=== PATIENT | female | born 1950 | race Caucasian/White ===

== ENCOUNTER 2017-11-24 10:25 | Emergency (ER) | payer OTHER ==
[2017-11-24 11:32] LABS: Absolute Lymphocytes (CBC) 3.2 K/uL (0.7-4.9); Absolute Monocytes 0.8 K/uL (0.1-1.3); Absolute Neutrophil 9.8 K/uL (1.8-8.0); Basophils % 0.8 % (0-1.3); Eosinophils % 0.3 % (0-4.4); Hematocrit 47.2 % (36.0-45.0); Lymphocytes % 22.9 % (15.3-44.8); MCH 30.2 pg (27.0-35.0); MCV 91.9 fL (80-100); MPV 7.8 fL (7.6-11.3); Monocytes % 5.5 % (3.3-12.3); RBC Red Blood Cell Count 5.13 M/uL (3.86-4.86)
[2017-11-24 11:35] LABS: Protime INR 1.1
[2017-11-24 11:51] LABS: Bilirubin Direct 0.2 mg/dL (0-0.2); Bilirubin Total 0.6 mg/dL (0.3-1.2); Magnesium 1.6 mg/dL (1.8-2.5); Protein, Total 7.1 g/dL (6.0-8.3)
[2017-11-24 11:53] LABS: Potassium 2.7 mEq/L (3.6-5.0)
[2017-11-24 11:54] LABS: CKMB Creatine Kinase MB 5.3 ng/ml (0.3-4.0)
--- NOTE | 2017-11-24 12:35 | ER ---
Nurse's Notes [facility] Name: Oralia Treviño Age: 67 yrs Sex: Female : 1950 Arrival Date: 11/24/2017 Time: 10:29 Bed 3 Private MD: Amina Dominguez Diagnosis: Weakness;Dizziness and giddiness;Other slipping, tripping and stumbling and falls;Superficial injury of head;Abrasion of forearm;Abrasion of hand Presentation: 11/24 10:33 Presenting complaint: Patient states: Patient reports seeing Dr Corbin for her vertigo aj and being ordered to have fasting labs. Patient reports fasting since midnight last night and feeling weak. Seen at [facility] for same complaint. Patient would like medication for nausea and something to make her have more energy. Transition of care: patient was not received from another setting of care. Onset of symptoms was November 24, 2017. Care prior to arrival: None. 10:33 Method Of Arrival: Wheelchair aj 10:33 Acuity: BETTY 3 aj Triage Assessment: 10:37 General: Appears in no apparent distress. comfortable, Behavior is calm, cooperative, aj appropriate for age. Pain: Denies pain. Neuro: Level of Consciousness is awake, alert, obeys commands, Oriented to person, place, time, situation, Appropriate for age. Respiratory: Airway is patent Respiratory effort is even, unlabored, Respiratory pattern is regular, symmetrical. Derm: Skin is intact, is healthy with good turgor, Skin is pink, warm \T\ dry. normal. Musculoskeletal: Circulation, motion, and sensation intact. Range of motion: intact in all extremities. Historical: - Allergies: 10:37 Iodine; aj - Home Meds: 10:37 Ambien Oral [Active]; aspirin 81 mg Oral chew [Active]; carvedilol Oral [Active]; aj Trazodone Oral [Active]; Hydrocodone-Acetaminophen Oral [Active]; 11:37 Albuterol Inhl [Active]; atorvastatin 40 mg oral tab 1 tab once daily [Active]; ae1 carisoprodol 350 mg Oral tab 1 tab 3 times per day [Active]; promethazine 25 mg Oral tab 1 tab every 6 hours [Active]; hydrocodone-acetaminophen 7.5-325 mg Oral tab 1 tab 4 times a day [Active]; venlafaxine 100 mg oral tab 2 tab 2 times per day [Active]; quetiapine 100 mg oral tab 3 tabs every evening. [Active]; amitriptyline 25 mg Oral tab 1 tab at bedtime [Active]; trazodone 100 mg Oral tab 1 tab 1/2 a tab to one tab every evening PRN [Active]; Breo Ellipta 100-25 mcg/dose inhalation dsdv 1 puff once daily [Active]; - PMHx: 10:37 chronic back pain; chronic neck pain; vertigo; aj - PSHx: 10:37 Cholecystectomy; Hysterectomy; aj - Immunization history:: Adult Immunizations up to date. - Social history:: Smoking status: Patient uses tobacco products, smokes one pack cigarettes per day. Screenin:40 Abuse screen: Denies threats or abuse. Nutritional screening: No deficits noted. ae1 Tuberculosis screening: No symptoms or risk factors identified. Fall Risk Fall in past 12 months (25 points). IV access (20 points). Assessment: 10:40 General: Appears uncomfortable, obese, unkempt, Behavior is uncooperative, Patient ae1 states she does not want to stay longer than an hour.. patient refuses to change into gown. . Pain: Complains of pain in left scapular area. Neuro: Level of Consciousness is awake, obeys commands, lethargic, Oriented to person, Speech Mildly slurred . Facial symmetry appears normal. Cardiovascular: skin warm. Respiratory: Airway is patent Respiratory effort is even, unlabored, Respiratory pattern is regular, symmetrical, Breath sounds are clear bilaterally. Breath sounds are diminished bilaterally. in left posterior lower lobe, right posterior middle lobe and right posterior lower lobe. GI: Abdomen is round. : No signs and/or symptoms were reported regarding the genitourinary system. EENT: wears glasses. . Derm: Skin is pale, Bruising that is dark purple, on right arm and left arm. Derm: Wound noted medial aspect of right calf Other: small cut with dried blood. Musculoskeletal: No signs and/or symptoms reported regarding the musculoskeletal system. 10:55 Reassessment: Patient refuses to get in gown, states she does not want to be here ae1 longer than an hour. Provided patient teaching on wait times for tests, provider notified, provider at bedside discussing plan of care. 11:30 Reassessment: Patient refused CT. Patient states she is not going to stay here longer ae1 than a hour and is asking for hydrocodone. Provider notified. Patient questioned nurse why home medications were taken to nurse station, provided patient teaching, left door and curtain to exam room open for nurse to be completely visible while medications entered into computer. Nurse had additional RN present for medications to be entered into computer. 11:30 Reassessment: Patient refuses EKG. Provider notified. ae1 11:37 Reassessment: Patient states she is going to remove monitoring equipment. ae1 11:41 Reassessment: Provider, director and warehouse puller at bedside discussing care and ae1 options. 11:53 Reassessment: Potassium 2.7, provider notified. jl7 12:06 Reassessment: Patient assisted to restroom via wheelchair, nurse obtained urine sample ae1 at this time. Vital Signs: 10:37 BP 162 / 70; Pulse 76; Resp 17; Temp 97.1; Pulse Ox 95% on R/A; Weight 81.65 kg; Height aj 5 ft. 2 in. (157.48 cm); 11:23 BP 185 / 62; Pulse 71; Resp 19; Pulse Ox 91% on R/A; ae1 10:37 Body Mass Index 32.92 (81.65 kg, 157.48 cm) aj 11:23 Nasal cannula applied at 2 liters, Oxygen saturation increased to 96% ae1 ED Course: 10:29 Patient arrived in ED. mr 10:29 Amina Dominguez MD is Private Physician. mr 10:36 Triage completed. aj 10:37 Arm band placed on left wrist. Patient placed in an exam room. aj 10:40 Bed in low position. Call light in reach. Side rails up X 1. campus monitor on. Pulse ae1 ox on. NIBP on. Warm blanket given. Patient refuses to change into gown. 10:46 Edd Marshall MD is Attending Physician. kdr 10:55 Joce Abdi, ELLA is Primary Nurse. ae1 11:[address] vm2 11:31 Note: pt refused CT at this time, Nurse was notified. vm2 11:56 XRAY Chest (1 view) In Process Unspecified. EDMS 12:00 IV discontinued, intact, bleeding controlled, No redness/swelling at site. Pressure ae1 dressing applied. 12:27 Patient states she would like to drive home. Dr Marshall at bedside instructing patient pt she should not drive at this time. I attempted to call patients son with No answer. Patient walked to vehicle and [employer] called. PD present speaking with patient. Officer Neva states patient answered all questions appropriately. PD will follow patient to her home. 12:34 No provider procedures requiring assistance completed. ae1 Administered Medications: 12:32 Not Given (Patient Refused; Patient refused further care.): Tetanus-Diphtheria Toxoid ae1 Adult 0.5 ml IM once Outcome: 12:35 Eloped from waiting room, after seeing physician ae1 12:35 unknown 12:35 Patient left the ED. ae1 Signatures: Dispatcher [employer] EDMS Shira Gomez RN RN aj Rittger, Kevin, MD MD [facility] Jazmín Galan RN RN pt Shameka Khan mr Joce Abdi RN RN ae1 Andres Griggs RN RN jl7 Latasha Ruth 2 Corrections: (The following items were deleted from the chart) 11:21 10:33 Acuity: BETTY 4 aj aj 12:27 10:40 General: Appears uncomfortable, obese, unkempt, Behavior is uncooperative, ae1 Patient states she does not want to stay longer than an hour.. ae1
--- NOTE | 2017-11-24 12:35 | EDPHYS ---
Physician Documentation [facility] Name: Oralia Treviño Age: 67 yrs Sex: Female : 1950 Arrival Date: 11/24/2017 Time: 10:29 Bed 3 Private MD: Amina Dominguez ED Physician Edd Marshall HPI: 11/24 12:03 This 67 yrs old Female presents to ER via Wheelchair with complaints of kdr Weakness. 12:04 The patient has been weak and dizzy with recurrent falls and head injuries with kdr abrasions to her arms and legs. The patient states that she is generally weak and not feeling well. Onset: The symptoms/episode began/occurred at an unknown time. These appear to be ongoing issues. She states that she was recently in [facility] for similar problems and does not want to spend five hours here. Severity of symptoms: At their worst the symptoms were mild moderate just prior to arrival, in the emergency department the symptoms. The patient has experienced similar episodes in the past, multiple times. The patient has been recently seen by a physician: with similar presenting complaints. Historical: - Allergies: 10:37 Iodine; aj - Home Meds: 10:37 Ambien Oral [Active]; aspirin 81 mg Oral chew [Active]; carvedilol Oral [Active]; aj Trazodone Oral [Active]; Hydrocodone-Acetaminophen Oral [Active]; 11:37 Albuterol Inhl [Active]; atorvastatin 40 mg oral tab 1 tab once daily [Active]; ae1 carisoprodol 350 mg Oral tab 1 tab 3 times per day [Active]; promethazine 25 mg Oral tab 1 tab every 6 hours [Active]; hydrocodone-acetaminophen 7.5-325 mg Oral tab 1 tab 4 times a day [Active]; venlafaxine 100 mg oral tab 2 tab 2 times per day [Active]; quetiapine 100 mg oral tab 3 tabs every evening. [Active]; amitriptyline 25 mg Oral tab 1 tab at bedtime [Active]; trazodone 100 mg Oral tab 1 tab 1/2 a tab to one tab every evening PRN [Active]; Breo Ellipta 100-25 mcg/dose inhalation dsdv 1 puff once daily [Active]; - PMHx: 10:37 chronic back pain; chronic neck pain; vertigo; aj - PSHx: 10:37 Cholecystectomy; Hysterectomy; aj - Immunization history:: Adult Immunizations up to date. - Social history:: Smoking status: Patient uses tobacco products, smokes one pack cigarettes per day. ROS: 12:04 Constitutional: The patient is a generally poor historian. Negative for fever, chills, kdr and weight loss, Eyes: Negative for injury, pain, redness, and discharge, ENT: Negative for injury, pain, and discharge, Neck: Negative for injury, pain, and swelling, Cardiovascular: Negative for chest pain, palpitations, and edema, Respiratory: Negative for shortness of breath, cough, wheezing, and pleuritic chest pain, Back: Negative for injury and pain, : Negative for injury, bleeding, discharge, and swelling, Psych: Negative for depression, anxiety, suicide ideation, homicidal ideation, and hallucinations, Allergy/Immunology: Negative for hives, rash, and allergies, Endocrine: Negative for neck swelling, polydipsia, polyuria, polyphagia, and marked weight changes, Hematologic/Lymphatic: Negative for swollen nodes, abnormal bleeding, and unusual bruising. 12:04 Abdomen/GI: Negative for abdominal pain, nausea, vomiting, diarrhea, and constipation. 12:04 MS/extremity: Positive for injury or acute deformity, abrasion, erythema, pain, swelling, tenderness. 12:04 Neuro: Positive for speech changes, weakness, Negative for seizure activity. Exam: 12:04 Constitutional: This is a well developed, well nourished patient who is awake, alert, kdr and in very mild distress. Head/Face: Normocephalic, atraumatic. Eyes: Pupils equal round and reactive to light, extra-ocular motions intact. Lids and lashes normal. Conjunctiva and sclera are non-icteric and not injected. Cornea within normal limits. Periorbital areas with no swelling, redness, or edema. Neck: Trachea midline, no thyromegaly or masses palpated, and no cervical lymphadenopathy. Supple, full range of motion without nuchal rigidity, or vertebral point tenderness. No Meningismus. Chest/axilla: Normal chest wall appearance and motion. Nontender with no deformity. No lesions are appreciated. 12:04 Neuro: Orientation: is normal, appropriate for stated age, Mentation: lucid, able to follow commands, slow to respond, Memory: is normal, Cranial nerves: no acute changes, Cerebellar function: is grossly normal based on the patient's age, Gait: is unsteady, ataxic, shuffling, The patient neuro s/s are minimal but present. Speech appears to be slightly slurred. Vital Signs: 10:37 BP 162 / 70; Pulse 76; Resp 17; Temp 97.1; Pulse Ox 95% on R/A; Weight 81.65 kg; Height aj 5 ft. 2 in. (157.48 cm); 11:23 BP 185 / 62; Pulse 71; Resp 19; Pulse Ox 91% on R/A; ae1 10:37 Body Mass Index 32.92 (81.65 kg, 157.48 cm) aj 11:23 Nasal cannula applied at 2 liters, Oxygen saturation increased to 96% ae1 MDM: 12:04 Data reviewed: vital signs, nurses notes, lab test result(s), radiologic studies. kdr Counseling: I had a detailed discussion with the patient and/or guardian regarding:. ED course: The patient left prior to all results being returned and without allowing any treatment to occur. The patient then walked to her car slow but relatively steady. Police were called and interviewed the patient in the parking lot. I had informed the patient that I was not confident given the extent of her injuries and apparent recurrent nature, that she was safe take herself home in her vehicle. She insisted upon leaving.. 12:34 Patient medically screened. [facility] 11/24 11:12 Order name: Basic Metabolic Panel [facility] 11/24 11:12 Order name: BNP [facility] 11/24 11:12 Order name: CBC with Diff [facility] 11/24 11:12 Order name: Ckmb [facility] 11/24 11:12 Order name: CPK [facility] 11/24 11:12 Order name: LFT's [facility] 11/24 11:12 Order name: Magnesium [facility] 11/24 11:12 Order name: PT-INR [facility] 11/24 11:12 Order name: Ptt, Activated [facility] 11/24 11:12 Order name: Troponin (emerg Dept Use Only) [facility] 11/24 11:12 Order name: XRAY Chest (1 view) [facility] 11/24 11:19 Order name: ETOH Level [facility] 11/24 12:11 Order name: Urine Dipstick--Ancillary (enter results) 11/24 11:12 Order name: Cardiac monitoring; Complete Time: 11:12 [facility] 11/24 11:12 Order name: IV Saline Lock; Complete Time: 11: [facility] 11/24 11:12 Order name: Labs collected and sent; Complete Time: 11: [facility] 11/24 11:12 Order name: O2 Per Protocol; Complete Time: 11:12 [facility] 11/24 11:12 Order name: O2 Sat Monitoring; Complete Time: 11: [facility] 11/24 11:12 Order name: Urine Dipstick-Ancillary (obtain specimen); Complete Time: 12:11 [facility] 11/24 11:19 Order name: Misc. Order: Clean wounds kdr Administered Medications: 12:32 Not Given (Patient Refused; Patient refused further care.): Tetanus-Diphtheria Toxoid ae1 Adult 0.5 ml IM once Disposition: 11/24/17 12:34 Patient left the facility after being seen by provider. Preliminary diagnosis are Weakness, Dizziness and giddiness, Other slipping, tripping and stumbling and falls, Superficial injury of head, Abrasion of forearm, Abrasion of hand. - Patient left due to (see nurse's notes). - Condition is Fair. - Problem is an ongoing problem. - Symptoms are unchanged. Signatures: Dispatcher [employer] Nick Shelley jb1 Shira Gomez RN RN aj Rittger, Kevin, MD MD kdr Joce Abdi RN RN ae1 Corrections: (The following items were deleted from the chart) 12:14 11:20 Head Brain Wo Cont+CT.RAD.BRZ ordered. [facility] 12:35 12:34 11/24/2017 12:34 Patient left the facility after being seen by provider. ae1 Preliminary diagnosis is Weakness; Dizziness and giddiness; Other slipping, tripping and stumbling and falls; Superficial injury of head; Abrasion of forearm; Abrasion of hand. Reason stated they are leaving due to (see nurse's notes). Condition is Fair. Problem is an ongoing problem. Symptoms are unchanged. kdr
[2017-11-24 12:39] VITALS: TEMP 97.1
[2017-11-24 12:40] VITALS: BP 185/62; O2SAT 91
--- NOTE | 2017-11-24 12:46 | RAD REPORT ---
EXAM DESCRIPTION: [place] Single View11/24/2017 11:54 am CLINICAL HISTORY: Chest pain COMPARISON: July 2016 FINDINGS: A few areas of scarring are seen within the lungs bilaterally. The lungs appear clear of a cute infiltrate. The heart is mildly enlarged. IMPRESSION: No acute abnormalities displayed
[2017-11-24 12:54] LABS: Urine Blood TRACE (NEG); Urine Glucose NEGATIVE (NEG); Urine Protein NEGATIVE (NEG); Urine Specific Gravity 1.015 (1.005-1.030); Urine pH 6.5 (5.0-7.0)
== END 2017-11-24 12:35 | disposition left against medical advice (07) ==
LOC: ER 10:25
DX: R42 Dizziness and giddiness (principal); S00.90XA Unspecified superficial injury of unspecified part of head, initial encounter; W19.XXXA Unspecified fall, initial encounter; Y93.9 Activity, unspecified; Y92.9 Unspecified place or not applicable; S50.812A Abrasion of left forearm, initial encounter; S50.811A Abrasion of right forearm, initial encounter; S60.512A Abrasion of left hand, initial encounter; S60.511A Abrasion of right hand, initial encounter; Z91.09 Other allergy status, other than to drugs and biological substances
CPT/HCPCS: 36415; 71045; 80048; 80076; 80320; 81003; 82550; 82553; 83735; 83880; 84484; 85025; 85610; 85730; 99284

== ENCOUNTER 2025-04-24 13:32 | Emergency (ER) | payer OTHER ==
[2025-04-24] MEDS ORDERED: ONDANSETRON 4 MG/2 ML VIAL ONE (13:57)
[2025-04-24] MEDS ORDERED: NA CHLORIDE 0.9% 1,000 ML ONE (13:57)
--- OUTSIDE RECORDS SUMMARY | 2025-04-24 13:59 | XMS REPORT | Continuity of Care Document ---
Author Name Unknown Address [address] [facility] [address] [place] [address] [facility] [place] Address [address] 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 Name Role Phone Amina Dominguez Primary Care Physician [phone] Inna Evans Attending Clinician Unavailable Amina Dominguez L Attending Clinician Unavailable Francisco Yanez Attending Clinician Doctor Unassigned, [place] [place] Attending Clinician U Stewart Cabrales Attending Clinician Unavailable Payers Payer Name Policy Type Policy Number Effective Date Expiration Date Source [facility] MEDICARE C1 [id number] 2020 00:00:00 [facility] [employer] MEDICARE C1 [id number] 2020 00:00:00 [facility] HEALTH (MEDICARE REPLACEMENT HMO) MOLLYAVRIL 2021 00:00:00 Problems Condition Name Condition Details Condition Category Status Onset Date Resolution Date Last Treatment Date Treating Clinician Comments Source Fatigue Fatigue Problem [facility] Gastroesop hageal reflux disease GERD (gastroeso phageal reflux disease) Problem [facility] Insomnia Insomnia Problem [facility] COPD - Chronic obstructiv e pulmonary disease COPD (chronic obstructiv e pulmonary disease) Problem [facility] Essential hypertensi on Benign essential HTN Problem [facility] Diarrhea Diarrhea Problem [facility] Hyperlipid emia Hyperlipid emia Problem Common [facility] [id number] Elevated hemoglobin Problem [facility] [id number] Controlled type 2 diabetes mellitus without complicati on, without long-term current use of insulin Problem Common [facility] [id number] Elevated lymphocyte s Problem [facility] [id number] Dermoid cyst of scalp Problem [facility] Irritable bowel syndrome Mixed irritable bowel syndrome Problem [facility] [id number] Other malaise Problem [facility] [id number] Leg cramps Problem [facility] [id number] Depression with anxiety Problem [facility] [id number] Acute maxillary sinusitis, recurrence not specified Problem [facility] [id number] Seasonal allergic rhinitis due to pollen Problem [facility] [id number] Varicose veins of both lower extremitie s, unspecifie d whether complicate d Problem [facility] Chronic pain Other chronic pain Problem [facility] [id number] Vertigo Problem [facility] [id number] Weakness Problem [facility] Primary insomnia Primary insomnia Problem [facility] Increased blood leukocyte number Other elevated white blood cell (WBC) count Problem [facility] [id number] Hypoxia Problem [facility] Counseling about tobacco use Tobacco abuse counseling Problem [facility] Chronic fatigue syndrome Chronic fatigue Problem [facility] Nicotine dependence Nicotine dependence Problem [facility] [id number] Acute right-side d low back pain without sciatica Problem [facility] [id number] Benign paroxysmal positional vertigo of left ear Problem [facility] [id number] Prediabete s Problem [facility] [id number] Smokes 1 pack of cigarettes per day Problem [facility] [id number] Restless leg syndrome Problem [facility] [id number] Elevated fasting glucose Problem [facility] Allergies, Adverse Reactions, Alerts Allergy Name Allergy Type Status Severity Reaction(s) Onset Date Inactive Date Treating Clinician Comments Source iodine Propensi ty to adverse reaction to drug Active 8 00:00: 00 Ben Westbrook 237 Drug allergy Active Unknown [facility] Social History Social Habit Start Date Stop Date Quantity Comments Source History of Tobacco Use Current Smoker [facility] Sexual orientation U [facility] Sex assigned at 1950 00:00:00 1950 00:00:00 [facility] Smoking Status Start Date Stop Date Source Tobacco smoking consumption unknown [facility] Current Smoker 2023-04-23 00:00:00 [facility] Medications Ordered Medication Name Filled Medication Name Start Date Stop Date Current Medication? Ordering Clinician Indication Dosage Frequency Signature (SIG) Comments Components Source lisinopril 40 mg tablet 2024-07 00:00: 00 Yes 1mg Ben Westbrook hydrochloro thiazide 12.5 mg tablet 2024-07 00:00: 00 Yes 1mg Ben Westbrook Seroquel 50 mg tablet 2024-07 00:00: 00 Yes 1mg Ben Westbrook albuterol sulfate HFA 90 mcg/actuati on aerosol inhaler 2024-07 0- 00:00: 00 Yes 1mcg/ac tuation Ben Westbrook citalopram 10 mg tablet 2024-07 0- 00:00: 00 Yes 1mg Ben Westbrook lisinopril 40 mg tablet 2024-07 0- 00:00: 00 Yes 1mg Ben Westbrook carvedilol 12.5 mg tablet 2024-07 0- 00:00: 00 Yes 1mg Ben Westbrook mirtazapine 15 mg tablet 2024-07 0-02 00:00: 00 Yes 1mg Ben Westbrook gabapentin 300 mg capsule 2024-07 0-02 00:00: 00 Yes mg Ben Westbrook lisinopril 30 mg tablet 0 9-26 00:00: 00 Yes 1mg Ben Westbrook Seroquel 25 mg tablet 2024-0 9-16 00:00: 00 Yes 12mg Ben Westbrook Seroquel 25 mg tablet 0 9-15 00:00: 00 Yes 12mg Ben Westbrook clonidine HCl 0.1 mg tablet 0 8-13 00:00: 00 Yes 1mg Ben Westbrook mirtazapine 15 mg tablet 0 8-11 00:00: 00 Yes 1mg Ben Westbrook hydroxyzine HCl 25 mg tablet 0 7-16 00:00: 00 Yes 12mg Ben Westbrook prednisone 20 mg tablet 0 7-11 00:00: 00 Yes 1mg Ben Westbrook lisinopril 40 mg tablet 0 7-11 00:00: 00 Yes 1mg Ben Westbrook clonidine HCl 0.1 mg tablet 0 7-11 00:00: 00 Yes 1mg Ben Westbrook hydroxyzine HCl 25 mg tablet 0 7-11 00:00: 00 Yes 12mg Ben Westbrook lisinopril 30 mg tablet 0 7-08 00:00: 00 Yes 1mg Ben Westbrook albuterol sulfate 2.5 mg/3 mL (0.083 %) solution for nebulizatio n 0 6- 00:00: 00 Yes 1/3 mL (0.083 %) Ben Wsetbrook cetirizine 10 mg tablet 0 6-26 00:00: 00 Yes 1mg Ben Westbrook gabapentin 300 mg capsule 0 6-26 00:00: 00 Yes mg Ben Westbrook gabapentin 300 mg capsule 0 6-24 00:00: 00 Yes mg Ben Westbrook trazodone 100 mg tablet 0 6-23 00:00: 00 Yes 1mg Ben Westbrook gabapentin 300 mg capsule 0 6-23 00:00: 00 Yes mg Ben Westbrook lisinopril 30 mg tablet 6-23 00:00: 00 Yes 1mg Ben Westbrook gabapentin 300 mg capsule 0 6-19 00:00: 00 Yes mg Ben Westbrook albuterol sulfate HFA 90 mcg/actuati on aerosol inhaler -18 00:00: 00 Yes 1mcg/ac tuation Ben Westbrook Seroquel 25 mg tablet -18 00:00: 00 Yes 12mg Ben Westbrook gabapentin 300 mg capsule -18 00:00: 00 Yes mg Ben Westbrook albuterol sulfate HFA 90 mcg/actuati on aerosol inhaler - 00:00: 00 Yes 1mcg/ac tuation Ben Westbrook lisinopril 20 mg tablet 5- 00:00: 00 Yes 1mg Ben Westbrook lisinopril 20 mg tablet 4-30 00:00: 00 Yes 1mg Ben Westbrook carvedilol 12.5 mg tablet 4-30 00:00: 00 Yes 1mg Ben Westbrook lisinopril 20 mg tablet 4-03 00:00: 00 Yes 1mg Ben Westbrook Seroquel 25 mg tablet 4-03 00:00: 00 Yes 12mg Ben Westbrook lisinopril 10 mg tablet 1-24 00:00: 00 Yes 1mg Ben Westbrook nitrofurant oin monohydrate /macrocryst als 100 mg capsule 1-08 00:00: 00 Yes 1mg Ben Westbrook diclofenac 1 % topical gel 1-06 00:00: 00 Yes 1% Ben Westbrook lisinopril 10 mg tablet 0 1-06 00:00: 00 Yes 1mg Ben Westbrook gabapentin 300 mg capsule 1-06 00:00: 00 Yes mg Ben Westbrook Spiriva Respimat 1.25 mcg/actuati on solution for inhalation 2023-07 0-28 00:00: 00 Yes 2mcg/ac tuation Ben Westbrook Symbicort 160 mcg-4.5 mcg/actuati on HFA aerosol inhaler 2023-07 0-24 00:00: 00 Yes 2mcg/ac tuation Ben Westbrook fluticasone propionate 250 mcg/actuati on blister powder for inhalation 2023-07 0 00:00: 00 Yes 2mcg/ac tuation Ben Westbrook lisinopril 10 mg tablet 2023-07 0 00:00: 00 Yes 1mg Ben Westbrook carvedilol 12.5 mg tablet 2023-07 00:00: 00 Yes 1mg Ben Westbrook Seroquel 25 mg tablet 2023-07 00:00: 00 Yes 12mg Ben Westbrook gabapentin 300 mg capsule 2023-07 0 00:00: 00 Yes 2mg Ben Westbrook Effexor XR 75 mg capsule,ext ended release 2023-07 00:00: 00 Yes 1mg Ben Westbrook cefdinir 300 mg capsule 2023-07 0 00:00: 00 Yes 1mg Ben Westbrook cefdinir 300 mg capsule 04-06 00:00: 00 Yes 1mg Ben Westbrook nitrofurant oin monohydrate /macrocryst als 100 mg capsule 04-03 00:00: 00 Yes 1mg Ben Westbrook gabapentin 300 mg capsule 03-17 00:00: 00 Yes 1mg Ben Westbrook triamcinolo ne acetonide 55 mcg nasal spray aerosol 02-16 00:00: 00 Yes 2mcg Ben Westbrook Symbicort 160 mcg-4.5 mcg/actuati on HFA aerosol inhaler - 00:00: 00 Yes 2mcg/ac tuation Ben Westbrook lisinopril 5 mg tablet - 00:00: 00 Yes 1mg Ben Westbrook Abilify 2 mg tablet 8- 00:00: 00 Yes 1mg Ben Westbrook meloxicam 15 mg tablet - 00:00: 00 Yes 1mg Ben Westbrook carvedilol 12.5 mg tablet 8- 00:00: 00 Yes 1mg Ben Westbrook Seroquel 25 mg tablet 8-06 00:00: 00 Yes 12mg Ben Westbrook gabapentin 300 mg capsule 0 8-06 00:00: 00 Yes 1mg Ben Westbrook Effexor XR 75 mg capsule,ext ended release 0 -06 00:00: 00 Yes 1mg Ben Westbrook fluticasone propionate 44 mcg/actuati on HFA aerosol inhaler 0 8- 00:00: 00 Yes 1mcg/ac tuation Ben Westbrook Abilify 2 mg tablet 0 - 00:00: 00 Yes 1mg Ben Westbrook Seroquel 25 mg tablet 0 - 00:00: 00 Yes 12mg Ben Westbrook Effexor XR 150 mg capsule,ext ended release 0 - 00:00: 00 Yes 2mg Ben Westbrook atomoxetine 40 mg capsule 0 - 00:00: 00 Yes 1mg Ben Westbrook gabapentin 300 mg capsule 0 - 00:00: 00 Yes 1mg Ben Westbrook Seroquel 25 mg tablet 0 - 00:00: 00 Yes 12mg Ben Westbrook Arnuity Ellipta 100 mcg/actuati on powder for inhalation 0 -25 00:00: 00 Yes 1mcg/ac tuation Ben Westbrook fluticasone propionate 44 mcg/actuati on HFA aerosol inhaler 0 6-24 00:00: 00 Yes 1mcg/ac tuation Ben Westbrook Abilify 2 mg tablet 0 5-24 00:00: 00 Yes 1mg Ben Westbrook Seroquel 25 mg tablet 0 5-24 00:00: 00 Yes 12mg Ben Westbrook Effexor XR 150 mg capsule,ext ended release 0 5-24 00:00: 00 Yes 2mg Ben Westbrook atomoxetine 40 mg capsule 2023-0 5-24 00:00: 00 Yes 1mg Ben Westbrook lisinopril 5 mg tablet 2023-0 -29 00:00: 00 Yes 1mg Ben Westbrook carvedilol 12.5 mg tablet 2023-0 -29 00:00: 00 Yes 1mg Ben Westbrook gabapentin 300 mg capsule 0 11-07 00:00: 00 Yes 1mg Ben Westbrook lisinopril 5 mg tablet 0 11-04 00:00: 00 Yes 1mg Ben Westbrook Abilify 2 mg tablet 0 11-04 00:00: 00 Yes 1mg Ben Westbrook Seroquel 25 mg tablet 0 11-04 00:00: 00 Yes 12mg eBn Westbrook Effexor XR 150 mg capsule,ext ended release 0 11-04 00:00: 00 Yes 2mg Ben Westbrook atomoxetine 40 mg capsule 0 11-04 00:00: 00 Yes 1mg Ben Westbrook aripiprazol e 2 mg tablet 11-04 00:00: 00 Yes Ben Westbrook venlafaxine ER 150 mg capsule,ext ended release 24 hr 0 11-04 00:00: 00 Yes Ben Westbrook TAKE 1 TABLET BY MOUTH THREE TIMES DAILY 0 11-03 00:00: 00 Yes Ben Westbrook tizanidine 4 mg tablet 0 11-03 00:00: 00 Yes Ben Westbrook Seroquel 25 mg tablet 0 10-06 00:00: 00 Yes 12mg Ben Westbrook Effexor XR 150 mg capsule,ext ended release 0 - 00:00: 00 Yes 1mg Ben Westbrook atomoxetine 40 mg capsule 2023-0 - 00:00: 00 Yes 1mg Ben Westbrook gabapentin 300 mg capsule 2023-0 3- 00:00: 00 Yes 1mg Ben Westbrook Effexor XR 75 mg capsule,ext ended release 2023-0 - 00:00: 00 Yes 1mg Ben Westbrook TAKE 1 TABLET BY MOUTH THREE TIMES DAILY 2023-0 - 00:00: 00 Yes Ben Westbrook quetiapine 25 mg tablet 2023-0 - 00:00: 00 Yes Ben Westbrook lisinopril 5 mg tablet 0 3-25 00:00: 00 Yes 1mg Ben Westbrook gabapentin 300 mg capsule 2023-0 3- 00:00: 00 Yes Ben Westbrook venlafaxine ER 150 mg capsule,ext ended release 24 hr 3-01 00:00: 00 Yes Ben Westbrook TAKE 1 TAB BY MOUTH DAILY 3- 00:00: 00 11-16 00:00 :00 No 25 Ben Westbrook TAKE 1 TABLET AT BEDTIME. 3-01 00:00: 00 11-16 00:00 :00 No 25 Ben Westbrook tizanidine 4 mg tablet 2-29 00:00: 00 Yes Ben Westbrook gabapentin 300 mg capsule 2-04 00:00: 00 Yes Ben Westbrook quetiapine 25 mg tablet 2-03 00:00: 00 Yes Ben Westbrook TAKE 1 CAPSULE BY MOUTH EVERY DAY WITH FOOD 2- 00:00: 00 Yes Ben Westbrook TAKE 1 CAPSULE BY MOUTH EVERY DAY WITH FOOD 2- 00:00: 00 Yes 150 Ben Westbrook TAKE 1 TAB BY MOUTH DAILY 2- 00:00: 00 11-16 00:00 :00 No 25 Ben Westbrook TAKE 1 CAPSULE 3 TIMES DAILY. 2-02 00:00: 00 11-16 00:00 :00 No 300 Ben Westbrook TAKE 1 TABLET AT BEDTIME. 2- 00:00: 00 11-16 00:00 :00 No 25 Ben Westbrook TAKE 1 TABLET BY MOUTH TWICE DAILY WITH FOOD 1-16 00:00: 00 Yes Ben Westbrook venlafaxine ER 75 mg capsule,ext ended release 24 hr 1-15 00:00: 00 Yes Ben Westbrook TAKE 1 CAPSULE ONCE DAILY WITH FOOD. 1-11 00:00: 00 Yes 75 Ben Westbrook venlafaxine ER 150 mg capsule,ext ended release 24 hr 1-11 00:00: 00 Yes Ben Westbrook TAKE 1 TABLET BY MOUTH AT BEDTIME 1-11 00:00: 00 Yes Ben Westbrook TAKE 1 CAPSULE 3 TIMES DAILY. 1-11 00:00: 00 11-16 00:00 :00 No 300 Ben Westbrook TAKE 1 TABLET AT BEDTIME. 07-22 00:00: 00 11-16 00:00 :00 No 25 Ben Westbrook TAKE 1 TABLET BY MOUTH THREE TIMES DAILY 07-15 00:00: 00 Yes Ben Westbrook TAKE 1 TABLET BY MOUTH EVERY DAY 07-15 00:00: 00 Yes Ben Westbrook quetiapine 25 mg tablet 2022-07 00:00: 00 Yes Ben Westbrook CHEW OR SWALLOW 1 TABLET DAILY. 2022-07 00:00: 00 Yes 5 Ben Westbrook TAKE 1 TABLET BY MOUTH AT BEDTIME 2022-07 00:00: 00 Yes Ben Westbrook TAKE 1 TABLET AT BEDTIME. 2022-07 00:00: 00 11-16 00:00 :00 No 25 Ben Westbrook TAKE 1 CAPSULE 3 TIMES DAILY. 2022-07 00:00: 00 11-16 00:00 :00 No 300 Ben Westbrook TAKE 1 CAPSULE ONCE DAILY WITH FOOD. 2022-07 00:00: 00 11-16 00:00 :00 No 75 Ben Westbrook TAKE 1 TABLET DAILY. 2022-07 00:00: 00 11-16 00:00 :00 No 5 Ben Westbrook TAKE 1 TABLET BY MOUTH EVERY DAY 2022-07 00:00: 00 Yes Ben Westbrook TAKE 1 TABLET BY MOUTH THREE TIMES DAILY 2022-07 00:00: 00 Yes Ben Westbrook fluoxetine 20 mg capsule 2022-07 00:00: 00 Yes Ben Westbrook TAKE 2 CAPSULES AT BEDTIME. 2022-07 00:00: 00 11-16 00:00 :00 No 100 Ben Westbrook USE DIRECTED ON PACKAGE 2022-07 00:00: 00 11-16 00:00 :00 No 5 Ben Westbrook TAKE 1 TABLET DAILY NEEDED. 2022-07 00:00: 00 11-16 00:00 :00 No 10 Ben Westbrook TAKE ONE CAPSULE ONCE A DAY 2022-07 00:00: 00 11-16 00:00 :00 No 20 Ben Westbrook TAKE 1 TABLET DAILY. 2022-07 00:00: 00 11-16 00:00 :00 No 5 Ben Westbrook hydrocodone 7.5 mg-acetamin ophen 325 mg tablet 2022-07 00:00: 00 Yes [id number] Ben Westbrook TAKE 1 TABLET BY MOUTH EVERY DAY NEEDED 2022-07 00:00: 00 11-16 00:00 :00 No Ben Westbrook fluoxetine 10 mg capsule 2022-07 00:00: 00 Yes Ben Westbrook TAKE 1 TABLET DAILY. 2022-07 00:00: 00 11-16 00:00 :00 No 5 Ben Westbrook TAKE 1 CAPSULE ORALLY ONCE A DAY 2022-07 00:00: 00 11-16 00:00 :00 No 10 Ben Westbrook TAKE 1 TABLET BY MOUTH TWICE DAILY WITH FOOD 2022-07 00:00: 00 Yes Ben Westbrook hydrocodone 7.5 mg-acetamin ophen 325 mg tablet 2022-07 00:00: 00 Yes Ben Westbrook methocarbam ol 750 mg tablet 2022-07 00:00: 00 11-16 00:00 :00 No Ben Westbrook TAKE 2 CAPSULES AT BEDTIME. 2022-07 00:00: 00 11-16 00:00 :00 No 100 Ben Westbrook Comirnaty (12y up)(PF) 30 mcg/0.3 mL intramuscul ar syringe 04-10 00:00: 00 Yes Ben Westbrook Boostrix Tdap 2.5 Lf unit-8 mcg-5 Lf/0.5 mL intramuscul ar syringe 04-10 00:00: 00 Yes Ben Westbrook Arexvy (PF) 120 mcg/0.5 mL IM suspension 04-10 00:00: 00 Yes Ben Westbrook Shingrix (PF) 50 mcg/0.5 mL intramuscul ar suspension, kit 04-10 00:00: 00 Yes Ben Westbrook gabapentin 100 mg capsule 04-04 00:00: 00 11-16 00:00 :00 No Ben Westbrook TAKE 1 TO 2 CAPSULES AT BEDTIME 03-31 00:00: 00 11-16 00:00 :00 No 100 Ben Westbrook TAKE 1 TABLET DAILY NEEDED. 03-31 00:00: 00 11-16 00:00 :00 No 10 Ben Westbrook trazodone 150 mg tablet 03-30 00:00: 00 Yes 150 Ben Westbrook TAKE 2 TABLETS BY MOUTH EVERY NIGHT AT BEDTIME 0 03-25 00:00: 00 Yes Ben Westbrook methocarbam ol 750 mg tablet 03-25 00:00: 00 11-16 00:00 :00 No Ben Westbrook TAKE 1 TABLET DAILY NEEDED. 03-22 00:00: 00 11-16 00:00 :00 No 10 Ben Westbrook TAKE 1 TO 2 CAPSULES AT BEDTIME 03-22 00:00: 00 11-16 00:00 :00 No 100 Ben Westbrook loperamide 2 mg capsule 03-01 00:00: 00 Yes Ben Westbrook Loperamide HCl 2 MG Loperamide HCl 2 MG 0 03-01 00:00: 00 No 1{capsu le_as_n eeded} QID Loperamide HCl 2 MG Loperamide HCl 2 MG Loperamide HCl 2 MG 2022-0 03-01 00:00: 00 No 1{capsu le_as_n eeded} QID Loperamide HCl 2 MG Loperamide HCl 2 MG Loperamide HCl 2 MG 2022-0 03-01 00:00: 00 No 1{capsu le_as_n eeded} QID Loperamide HCl 2 MG Loperamide HCl 2 MG Loperamide HCl 2 MG 2022-0 21 00:00: 00 No 1{capsu le_as_n eeded} QID Loperamide HCl 2 MG Loperamide HCl 2 MG Loperamide HCl 2 MG 2022-0 8-21 00:00: 00 No 1{capsu le_as_n eeded} QID Loperamide HCl 2 MG Loperamide HCl 2 MG Loperamide HCl 2 MG 3-0 8-21 00:00: 00 No 1{capsu le_as_n eeded} QID Loperamide HCl 2 MG Loperamide HCl 2 MG Loperamide HCl 2 MG 3-0 8-21 00:00: 00 No 1{capsu le_as_n eeded} QID Loperamide HCl 2 MG Loperamide HCl 2 MG Loperamide HCl 2 MG 3-0 8- 00:00: 00 No 1{capsu le_as_n eeded} QID Loperamide HCl 2 MG Loperamide HCl 2 MG Loperamide HCl 2 MG 3-0 8- 00:00: 00 No 1{capsu le_as_n eeded} QID Loperamide HCl 2 MG Loperamide HCl 2 MG Loperamide HCl 2 MG 2022-0 8 00:00: 00 No 1{capsu le_as_n eeded} QID Loperamide HCl 2 MG Loperamide HCl 2 MG Loperamide HCl 2 MG 2022-0 8 00:00: 00 No 1{capsu le_as_n eeded} QID Loperamide HCl 2 MG Loperamide HCl 2 MG Loperamide HCl 2 MG 2022-0 8 00:00: 00 No 1{capsu le_as_n eeded} QID Loperamide HCl 2 MG Loperamide HCl 2 MG Loperamide HCl 2 MG 2022-0 8 00:00: 00 No 1{capsu le_as_n eeded} QID Loperamide HCl 2 MG Loperamide HCl 2 MG Loperamide HCl 2 MG 2022-0 8 00:00: 00 No 1{capsu le_as_n eeded} QID Loperamide HCl 2 MG TAKE 1 TABLET BY MOUTH EVERY DAY 2022-0 18 00:00: 00 Yes Ben Westbrook TAKE 2 TABLETS BY MOUTH EVERY NIGHT AT BEDTIME 2022-0 02-25 00:00: 00 Yes Ben Westbrook TAKE 1 TABLET BY MOUTH THREE TIMES DAILY 2022-0 8 00:00: 00 Yes Ben Westbrook venlafaxine ER 150 mg capsule,ext ended release 24 hr 2022-0 16 00:00: 00 11-16 00:00 :00 No Ben Westbrook venlafaxine ER 75 mg capsule,ext ended release 24 hr 8-16 00:00: 00 11-16 00:00 :00 No Ben Westbrook TAKE 1 TABLET BY MOUTH FOUR TIMES DAILY NEEDED FOR DIARRHEA 8-15 00:00: 00 Yes Ben Westbrook bupropion HCl XL 150 mg 24 hr tablet, extended release -08 00:00: 00 Yes Ben Westbrook carvedilol 12.5 mg tablet 28 00:00: 00 Yes Ben Westbrook hydrocodone 7.5 mg-acetamin ophen 325 mg tablet - 00:00: 00 Yes Ben Westbrook ropinirole 1 mg tablet - 00:00: 00 Yes 1 Ben Westbrook bupropion HCl XL 150 mg 24 hr tablet, extended release -14 00:00: 00 Yes Ben Westbrook TAKE 1 TABLET BY MOUTH EVERY EVENING 01-18 00:00: 00 Yes Ben Westbrook albuterol sulfate HFA 90 mcg/actuati on aerosol inhaler 01-15 00:00: 00 Yes Ben Westbrook aripiprazol e 5 mg tablet 01-06 00:00: 00 Yes Ben Westbrook TAKE 2 TABLETS BY MOUTH EVERY NIGHT AT BEDTIME 0 12-31 00:00: 00 Yes Ben Westbrook TAKE 1 TO 2 TABLETS BY MOUTH EVERY DAY FOR 14 DAYS NEEDED 12-31 00:00: 00 11-16 00:00 :00 No Ben Westbrook VENLAFAXINE ER 75MG CAPSULES - 00:00: 00 11-16 00:00 :00 No Ben Westbrook ropinirole 1 mg tablet - 00:00: 00 Yes 1 Ben Westbrook TAKE 1 TABLET BY MOUTH THREE TIMES DAILY 0 -25 00:00: 00 Yes Ben Westbrook atorvastati n 40 mg tablet - 00:00: 00 Yes 40 Ben Westbrook venlafaxine ER 225 mg tablet,exte nded release 24 hr 5-09 00:00: 00 Yes 225 Ben Westbrook TAKE 1 TABLET BY MOUTH THREE TIMES DAILY 4-27 00:00: 00 Yes Ben Westbrook ropinirole 1 mg tablet 3-30 00:00: 00 Yes 1 Ben Westbrook aripiprazol e 5 mg tablet 3-23 00:00: 00 Yes 5 Ben Westbrook TAKE 1 TO 2 TABLETS BY MOUTH EVERY EVENING AT 10 PM NEEDED FOR INSOMNIA -22 00:00: 00 Yes eBn Westbrook aripiprazol e 5 mg tablet 3-08 00:00: 00 Yes 5 Ben Westbrook trazodone 150 mg tablet -08 00:00: 00 Yes 150 Ben Westbrook clonidine HCl 0.1 mg tablet 3-07 00:00: 00 Yes 1 Ben Westbrook TAKE 1 TO 2 TABLETS BY MOUTH EVERY EVENING DIRECTED 1.5 HOURS PRIOR TO BEDTIME FOR MOOD AND INSOMNIA - 00:00: 00 Yes Ben Westbrook venlafaxine ER 150 mg capsule,ext ended release 24 hr 3-07 00:00: 00 11-16 00:00 :00 No 150 Ben Westbrook hydrocodone 7.5 mg-acetamin ophen 325 mg tablet 3- 00:00: 00 Yes [id number] Ben Westbrook baclofen 10 mg tablet 3- 00:00: 00 11-16 00:00 :00 No 10 Ben Westbrook TAKE 1 TABLET BY MOUTH EVERY DAY 2-28 00:00: 00 Yes Ben Westbrook DISSOLVE 1 TABLET BY MOUTH EVERY 6-8 HOURS NEEDED 1- 00:00: 00 Yes Ben Westbrook INHALE 2 PUFFS EVERY 12 HOURS FOR 1 WEEK UNTIL SYMPTONS IMPROVE 1- 00:00: 00 Yes Ben Westbrook LEVOFLOXACI N 250MG TABLETS 1-03 00:00: 00 Yes Ben Westbrook ALBUTEROL 0.083%(2.5M G/3ML) 25X3ML 1-03 00:00: 00 Yes Ben Westbrook TAKE 1 TABLET BY MOUTH AT BEDTIME FOR 14 DAYS 1- 00:00: 00 Yes Ben Westbrook TAKE 1 TABLET BY MOUTH EVERY 12 HOURS FOR 7 DAYS - 00:00: 00 Yes Ben Westbrook ALBUTEROL HFA INH(200 PUFFS) 18GM 1-03 00:00: 00 Yes Ben Westbrook TAKE 1 TABLET BY MOUTH DAILY 2021-07- 00:00: 00 Yes Ben Sea Westbrook ropinirole 1 mg tablet 2021-07- 00:00: 00 Yes 1 Ben Westbrook prednisone 10 mg tablet 2021-07 00:00: 00 Yes 10 Ben Westbroko TAKE 1 TABLET BY MOUTH EVERY DAY NEEDED 2021-07 00:00: 00 11-16 00:00 :00 No Ben F Pietro TAKE 1 CAPSULE BY MOUTH EVERY DAY AT BEDTIME 2021-07 00:00: 00 11-16 00:00 :00 No Ben Sea Westbrook armodafinil 250 mg tablet 2021-07 00:00: 00 Yes 250 Ben Westbrook TAKE 1 TABLET BY MOUTH ONCE DAILY FOR 90 DAYS 2021-07 00:00: 00 Yes Ben Westbrook TAKE 1 TABLET BY MOUTH EVERY DAY NEEDED 2021-07- 00:00: 00 11-16 00:00 :00 No Benjuancarlos Westbrook TAKE 1 TABLET BY MOUTH EVERY MORNING 2021-07 00:00: 00 Yes Ben Westbrook TAKE 1 TO 2 TABLETS BY MOUTH EVERY EVENING AT 10 PM NEEDED FOR INSOMNIA 2021-07 00:00: 00 Yes Ben Sea Westbrook TAKE 1 TABLET BY MOUTH EVERY DAY NEEDED 2021-07 00:00: 00 11-16 00:00 :00 No Ben Westbrook tizanidine 2 mg tablet 2021-07 0- 00:00: 00 11-16 00:00 :00 No 2 Ben Westbrook tiZANidine HCl 2 MG tiZANidine HCl 2 MG 2021-07 0- 00:00: 00 05-06 00:00 :00 No QD tiZANidine HCl 2 MG Prevnar 20 (PF) 0.5 mL intramuscul ar syringe 04-09 00:00: 00 Yes 5 Ben Westbrook TAKE 1 CAPSULE BY MOUTH EVERY DAY AT BEDTIME 03-18 00:00: 00 11-16 00:00 :00 No Ben Westbrook Gabapentin 300 MG Gabapentin 300 MG 01-09 00:00: 00 No 1{capsu le_at_b edtime} QD Gabapentin 300 MG Gabapentin 300 MG Gabapentin 300 MG 01-09 00:00: 00 No 1{capsu le_at_b edtime} QD Gabapentin 300 MG Trelegy Ellipta 100-62.5-25 MCG/INH Trelegy Ellipta 100-62.5-25 MCG/INH 12-11 00:00: 00 06-08 00:00 :00 No 1{puff} QD Trelegy Ellipta 100-62.5-2 5 MCG/INH predniSONE 10 MG predniSONE 10 MG 12-11 00:00: 00 12-21 00:00 :00 No predniSONE 10 MG Augmentin 500-125 MG Augmentin 500-125 MG 12-11 00:00: 00 12-18 00:00 :00 No 1{table t} BID Augmentin 500-125 MG Benzonatate 100 MG Benzonatate 100 MG - 00:00: 00 12-01 00:00 :00 No 1{capsu le_as_n eeded} TID Benzonatat e 100 MG Flonase 50 MCG/ACT Flonase 50 MCG/ACT 2020-07 00:00: 00 No 2{spray _in_eac h_nostr il} QD Flonase 50 MCG/ACT Cetirizine HCl 10 MG Cetirizine HCl 10 MG 2020-07 00:00: 00 No 1{table t} Cetirizine HCl 10 MG Albuterol Sulfate HFA Albuterol Sulfate HFA 08-01 00:00: 00 Yes Na Dominguez 2 puffs Common [facility] Vitamin B12 (Cyanocobal angela) Vitamin B12 (Cyanocobal angela) 2018-07 00:00: 00 No 1000ug [facility] Vitamin B12 (Cyanocobal angela) Vitamin B12 (Cyanocobal angela) 2018-07 00:00: 00 No 1000ug [facility] Vitamin B12 (Cyanocobal angela) Vitamin B12 (Cyanocobal angela) 2018-07 00:00: 00 No 1000ug [facility] Vitamin B12 (Cyanocobal angela) Vitamin B12 (Cyanocobal angela) 2018-07 00:00: 00 No 1000ug [facility] Vitamin B12 (Cyanocobal angela) Vitamin B12 (Cyanocobal angela) 2018-07 00:00: 00 No 1000ug [facility] Vitamin B12 (Cyanocobal angela) Vitamin B12 (Cyanocobal angela) 2018-07 00:00: 00 No 1000ug [facility] Vitamin B12 (Cyanocobal angela) Vitamin B12 (Cyanocobal angela) 2018-07 00:00: 00 No 1000ug [facility] [facility] Vitamin B12 (Cyanocobal angela) Vitamin B12 (Cyanocobal angela) 2018-07 00:00: 00 No 1000ug [facility] Vitamin B12 (Cyanocobal angela) Vitamin B12 (Cyanocobal angela) 2018-07 00:00: 00 No 1000ug [facility] Vitamin B12 (Cyanocobal angela) Vitamin B12 (Cyanocobal angela) 2018-07 00:00: 00 No 1000ug [facility] Vitamin B12 (Cyanocobal angela) Vitamin B12 (Cyanocobal angela) 2018-07 00:00: 00 No 1000ug [facility] Vitamin B12 (Cyanocobal angela) Vitamin B12 (Cyanocobal angela) 2018-07 00:00: 00 No 1000ug [facility] Vitamin B12 (Cyanocobal angela) Vitamin B12 (Cyanocobal angela) 2018-07 00:00: 00 No 1000ug [facility] Vitamin B12 (Cyanocobal angela) Vitamin B12 (Cyanocobal angela) 2018-07 00:00: 00 No 1000ug [facility] Vitamin B12 (Cyanocobal angela) Vitamin B12 (Cyanocobal angela) 2018-07 00:00: 00 No 1000ug [facility] Vitamin B12 (Cyanocobal angela) Vitamin B12 (Cyanocobal angela) 2018-07 00:00: 00 No 1000ug [facility] Vitamin B12 (Cyanocobal angela) Vitamin B12 (Cyanocobal angela) 2018-07 00:00: 00 No 1000ug [facility] Vitamin B12 (Cyanocobal angela) Vitamin B12 (Cyanocobal angela) 2018-07 00:00: 00 No 1000ug [facility] Vitamin B12 (Cyanocobal angela) Vitamin B12 (Cyanocobal angela) 2018-07 00:00: 00 No 1000ug [facility] Vitamin B12 (Cyanocobal angela) Vitamin B12 (Cyanocobal angela) 2018-07 00:00: 00 No 1000ug [facility] Vitamin B12 (Cyanocobal angela) Vitamin B12 (Cyanocobal angela) 2018-07 00:00: 00 No 1000ug [facility] Vitamin B12 (Cyanocobal angela) Vitamin B12 (Cyanocobal angela) 2018-07 00:00: 00 No 1000ug [facility] Kenalog (Triamcinol one) Kenalog (Triamcinol one) 0 11-21 00:00: 00 No 40mg [facility] Kenalog (Triamcinol one) Kenalog (Triamcinol one) 0 11-21 00:00: 00 No 40[facility] Kenalog (Triamcinol one) Kenalog (Triamcinol one) 0 11-21 00:00: 00 No 40[facility] Kenalog (Triamcinol one) Kenalog (Triamcinol one) 0 11-21 00:00: 00 No 40mg [facility] Kenalog (Triamcinol one) Kenalog (Triamcinol one) 2019-0 13 00:00: 00 No 40mg [facility] Kenalog (Triamcinol one) Kenalog (Triamcinol one) 2019-0 -13 00:00: 00 No 40mg [facility] Kenalog (Triamcinol one) Kenalog (Triamcinol one) 20190 11-21 00:00: 00 No 40mg [facility] Kenalog (Triamcinol one) Kenalog (Triamcinol one) 0 11-21 00:00: 00 No 40mg [facility] Kenalog (Triamcinol one) Kenalog (Triamcinol one) 0 11-21 00:00: 00 No 40mg [facility] Kenalog (Triamcinol one) Kenalog (Triamcinol one) 0 11-21 00:00: 00 No 40mg [facility] Kenalog (Triamcinol one) Kenalog (Triamcinol one) 0 11-21 00:00: 00 No 40mg [facility] Kenalog (Triamcinol one) Kenalog (Triamcinol one) 0 11-21 00:00: 00 No 40mg [facility] Kenalog (Triamcinol one) Kenalog (Triamcinol one) 20190 -13 00:00: 00 No 40mg [facility] Kenalog (Triamcinol one) Kenalog (Triamcinol one) 20190 13 00:00: 00 No 40mg [facility] Kenalog (Triamcinol one) Kenalog (Triamcinol one) 20190 13 00:00: 00 No 40mg [facility] Kenalog (Triamcinol one) Kenalog (Triamcinol one) 20190 13 00:00: 00 No 40mg [facility] Kenalog (Triamcinol one) Kenalog (Triamcinol one) 0 11-21 00:00: 00 No 40mg [facility] Kenalog (Triamcinol one) Kenalog (Triamcinol one) 0 11-21 00:00: 00 No 40mg [facility] Kenalog (Triamcinol one) Kenalog (Triamcinol one) 0 11-21 00:00: 00 No 40mg [facility] Kenalog (Triamcinol one) Kenalog (Triamcinol one) 0 11-21 00:00: 00 No 40mg [facility] Kenalog (Triamcinol one) Kenalog (Triamcinol one) 0 11-21 00:00: 00 No 40mg [facility] Kenalog (Triamcinol one) Kenalog (Triamcinol one) 0 11-21 00:00: 00 No 40mg [facility] Nebulizer Air Tube/Plugs Nebulizer Air Tube/Plugs 2017-07 2- 00:00: 00 Yes Amina Dominguez as directed [facility] Nebulizer Nebulizer 2017-07 2- 00:00: 00 Yes Amina Dominguez as directed [facility] Nebulizer - Nebulizer - 2017-07 2-05 00:00: 00 No Nebulizer - Nebulizer Air Tube/Plugs - Nebulizer Air Tube/Plugs - 2017-07 2-05 00:00: 00 No Nebulizer Air Tube/Plugs - Nebulizer - Nebulizer - 2017-07 2-05 00:00: 00 No Nebulizer - Nebulizer Air Tube/Plugs - Nebulizer Air Tube/Plugs - 2017-07 2-05 00:00: 00 No Nebulizer Air Tube/Plugs - Nebulizer - Nebulizer - 2017-07 2-05 00:00: 00 No Nebulizer - Nebulizer Air Tube/Plugs - Nebulizer Air Tube/Plugs - 2017-07 2-05 00:00: 00 No Nebulizer Air Tube/Plugs - Nebulizer Air Tube/Plugs - Nebulizer Air Tube/Plugs - 2017-07 2-05 00:00: 00 No Nebulizer Air Tube/Plugs - Nebulizer - Nebulizer - 2017-07 2-05 00:00: 00 No Nebulizer - Nebulizer Air Tube/Plugs - Nebulizer Air Tube/Plugs - 2017-07 2-05 00:00: 00 No Nebulizer Air Tube/Plugs - Nebulizer - Nebulizer - 2017-07 2-05 00:00: 00 No Nebulizer - Nebulizer Air Tube/Plugs - Nebulizer Air Tube/Plugs - 2017-07 2-05 00:00: 00 No Nebulizer Air Tube/Plugs - Nebulizer - Nebulizer - 2017-07 2-05 00:00: 00 No Nebulizer - Nebulizer Air Tube/Plugs - Nebulizer Air Tube/Plugs - 2017-07 2-05 00:00: 00 No Nebulizer Air Tube/Plugs - Nebulizer - Nebulizer - 2017-07 2-05 00:00: 00 No Nebulizer - Nebulizer Air Tube/Plugs - Nebulizer Air Tube/Plugs - 2017-07 2-05 00:00: 00 No Nebulizer Air Tube/Plugs - Nebulizer - Nebulizer - 2017-07 2-05 00:00: 00 No Nebulizer - Nebulizer Air Tube/Plugs - Nebulizer Air Tube/Plugs - 2017-07 2-05 00:00: 00 No Nebulizer Air Tube/Plugs - Nebulizer - Nebulizer - 2017-07 2-05 00:00: 00 No Nebulizer - Albuterol Sulfate Albuterol Sulfate 2017-07 00:00: 00 Yes Na Dominguez 3 ml as needed [facility] Albuterol Sulfate (2.5 MG/3ML) 0.083% Albuterol Sulfate (2.5 MG/3ML) 0.083% 2017-07 00:00: 00 No 3{ml_as _needed } Albuterol Sulfate (2.5 MG/3ML) 0.083% Albuterol Sulfate (2.5 MG/3ML) 0.083% Albuterol Sulfate (2.5 MG/3ML) 0.083% 2017-07 00:00: 00 No 3{ml_as _needed } Albuterol Sulfate (2.5 MG/3ML) 0.083% HYDROcodone -acetaminop hen 7.5-325 mg per tablet 12-03 16:23: 46 Yes 1{tbl} Take 1 tablet by mouth every 6 (six) hours as needed for Pain. [facility] traZODONE 50 mg tablet 12-03 16:23: 46 Yes 50mg Take 50 mg by mouth at bedtime. [facility] amitriptyli ne 25 mg tablet 12-03 16:23: 46 Yes 25mg Take 25 mg by mouth at bedtime. [facility] QUEtiapine 100 mg tablet 12-03 16:23: 46 Yes 300mg Take 300 mg by mouth at bedtime. [facility] cyclobenzap rine 5 mg tablet 12-03 00:00: 00 Yes 5mg Take 1 tablet by mouth 3 (three) times daily. [facility] ondansetron 4 mg disintegrat ing tablet 12-03 00:00: 00 Yes 4mg Take 1 tablet by mouth every 8 (eight) hours as needed for Nausea and Vomiting (N/V). [facility] traMADOL 50 mg tablet 12-03 00:00: 00 Yes 50mg Take 1 tablet by mouth every 6 (six) hours as needed for Pain (scale 7-10). [facility] traZODone HCl 50 MG traZODone HCl 50 MG No 1{table t_at_be dtime_a s_neede d} QD traZODone HCl 50 MG NexIUM 40 MG NexIUM 40 MG No 1{capsu le} QD NexIUM 40 MG Soma 350 MG Soma 350 MG No 1{table t_as_ne eded} QID Soma 350 MG Lyrica 100 MG Lyrica 100 MG No 1{capsu le} TID Lyrica 100 MG Atorvastati n Calcium 40 MG Atorvastati n Calcium 40 MG No Atorvastat in Calcium 40 MG Carvedilol 12.5 MG Carvedilol 12.5 MG No 1{table t_with_ food} BID Carvedilol 12.5 MG Loratadine 10 MG Loratadine 10 MG No 1{table t} QD Loratadine 10 MG clonazePAM 1 MG clonazePAM 1 MG No 1{table t} QD clonazePAM 1 MG Coreg 12.5 MG Coreg 12.5 MG No Coreg 12.5 MG ProAir RespiClick 108 ProAir RespiClick 108 No ProAir RespiClick 108 Flonase 50 MCG/ACT Flonase 50 MCG/ACT No 2{spray _in_eac h_nostr il} QD Flonase 50 MCG/ACT Albuterol Sulfate HFA 108 (90 Base) MCG/ACT Albuterol Sulfate HFA 108 (90 Base) MCG/ACT No 2{puffs } Albuterol Sulfate HFA 108 (90 Base) MCG/ACT LaMICtal 200 MG LaMICtal 200 MG No 1{table t} BID LaMICtal 200 MG Aspirin 325 MG Aspirin 325 MG No 1{table t} QD Aspirin 325 MG SEROquel 50 MG SEROquel 50 MG No 1{table t} QD SEROquel 50 MG Gabapentin 300 MG Gabapentin 300 MG No Gabapentin 300 MG Nasacort Allergy 24HR 55 MCG/ACT Nasacort Allergy 24HR 55 MCG/ACT No 1{puff_ in_each _nostri l} QD Nasacort Allergy 24HR 55 MCG/ACT Cetirizine HCl 10 MG Cetirizine HCl 10 MG No 1{table t} Cetirizine HCl 10 MG Zanaflex 4 MG Zanaflex 4 MG No 1{table t_as_ne eded} TID Zanaflex 4 MG metFORMIN HCl ER 500 MG metFORMIN HCl ER 500 MG No QD metFORMIN HCl ER 500 MG ProAir RespiClick 108 (90 Base) MCG/ACT ProAir RespiClick 108 (90 Base) MCG/ACT No 2{puffs _as_nee ded} QID ProAir RespiClick 108 (90 Base) MCG/ACT Venlafaxine HCl ER 150 MG Venlafaxine HCl ER 150 MG No Venlafaxin e HCl ER 150 MG Cipro 500 MG Cipro 500 MG No 1{table t} BID Cipro 500 MG traZODone HCl 50 MG traZODone HCl 50 MG No 1{table t_at_be dtime_a s_neede d} QD traZODone HCl 50 MG NexIUM 40 MG NexIUM 40 MG No 1{capsu le} QD NexIUM 40 MG Soma 350 MG Soma 350 MG No 1{table t_as_ne eded} QID Soma 350 MG Lyrica 100 MG Lyrica 100 MG No 1{capsu le} TID Lyrica 100 MG Atorvastati n Calcium 40 MG Atorvastati n Calcium 40 MG No Atorvastat in Calcium 40 MG Atorvastati n Calcium 40 Atorvastati n Calcium 40 No 1{table t} QD Atorvastat in Calcium 40 LaMICtal 200 MG LaMICtal 200 MG No 1{table t} BID LaMICtal 200 MG Albuterol Sulfate HFA 108 (90 Base) MCG/ACT Albuterol Sulfate HFA 108 (90 Base) MCG/ACT No 2{puffs } Albuterol Sulfate HFA 108 (90 Base) MCG/ACT Carvedilol 12.5 MG Carvedilol 12.5 MG No Carvedilol 12.5 MG Loratadine 10 MG Loratadine 10 MG No 1{table t} QD Loratadine 10 MG clonazePAM 1 MG clonazePAM 1 MG No 1{table t} QD clonazePAM 1 MG SEROquel 50 MG SEROquel 50 MG No 1{table t} QD SEROquel 50 MG Gabapentin 300 MG Gabapentin 300 MG No Gabapentin 300 MG Flonase 50 MCG/ACT Flonase 50 MCG/ACT No 2{spray _in_eac h_nostr il} QD Flonase 50 MCG/ACT Nasacort Allergy 24HR 55 MCG/ACT Nasacort Allergy 24HR 55 MCG/ACT No 1{puff_ in_each _nostri l} QD Nasacort Allergy 24HR 55 MCG/ACT Venlafaxine HCl ER 150 MG Venlafaxine HCl ER 150 MG No Venlafaxin e HCl ER 150 MG Aspirin 325 MG Aspirin 325 MG No 1{table t} QD Aspirin 325 MG traZODone HCl 50 MG traZODone HCl 50 MG No 1{table t_at_be dtime_a s_neede d} QD traZODone HCl 50 MG Cetirizine HCl 10 MG Cetirizine HCl 10 MG No 1{table t} Cetirizine HCl 10 MG Zanaflex 4 MG Zanaflex 4 MG No 1{table t_as_ne eded} TID Zanaflex 4 MG Cipro 500 MG Cipro 500 MG No 1{table t} BID Cipro 500 MG metFORMIN HCl ER 500 MG metFORMIN HCl ER 500 MG No QD metFORMIN HCl ER 500 MG ProAir RespiClick 108 (90 Base) MCG/ACT ProAir RespiClick 108 (90 Base) MCG/ACT No 2{puffs _as_nee ded} QID ProAir RespiClick 108 (90 Base) MCG/ACT Coreg 12.5 MG Coreg 12.5 MG No Coreg 12.5 MG NexIUM 40 MG NexIUM 40 MG No 1{capsu le} QD NexIUM 40 MG Soma 350 MG Soma 350 MG No 1{table t_as_ne eded} QID Soma 350 MG Lyrica 100 MG Lyrica 100 MG No 1{capsu le} TID Lyrica 100 MG Atorvastati n Calcium 40 MG Atorvastati n Calcium 40 MG No Atorvastat in Calcium 40 MG Venlafaxine HCl ER 150 MG Venlafaxine HCl ER 150 MG No Venlafaxin e HCl ER 150 MG Venlafaxine HCl ER 225 MG Venlafaxine HCl ER 225 MG No 1{table t_with_ food} QD Venlafaxin e HCl ER 225 MG HYDROcodone -Acetaminop hen 7.5-300 MG HYDROcodone -Acetaminop hen 7.5-300 MG No 1{table t_as_ne eded} QID HYDROcodon e-Acetamin ophen 7.5-300 MG traZODone HCl 50 MG traZODone HCl 50 MG No 1{table t_at_be dtime_a s_neede d} QD traZODone HCl 50 MG Albuterol Sulfate HFA 108 (90 Base) MCG/ACT Albuterol Sulfate HFA 108 (90 Base) MCG/ACT No 2{puffs } Albuterol Sulfate HFA 108 (90 Base) MCG/ACT Loratadine 10 MG Loratadine 10 MG No 1{table t} QD Loratadine 10 MG Carvedilol 12.5 MG Carvedilol 12.5 MG No Carvedilol 12.5 MG rOPINIRole HCl 1 MG rOPINIRole HCl 1 MG No QD rOPINIRole HCl 1 MG Atorvastati n Calcium 40 Atorvastati n Calcium 40 No 1{table t} QD Atorvastat in Calcium 40 buPROPion HCl ER (XL) 150 MG buPROPion HCl ER (XL) 150 MG No 1{table t_in_th e_morni ng} QD buPROPion HCl ER (XL) 150 MG Gabapentin 300 MG Gabapentin 300 MG No Gabapentin 300 MG Aspirin 325 MG Aspirin 325 MG No 1{table t} QD Aspirin 325 MG Meclizine HCl 25 MG Meclizine HCl 25 MG No 1{table t_as_ne eded} BID Meclizine HCl 25 MG Venlafaxine HCl ER 75 MG Venlafaxine HCl ER 75 MG No Venlafaxin e HCl ER 75 MG Gabapentin 300 MG Gabapentin 300 MG No Gabapentin 300 MG Atorvastati n Calcium 40 Atorvastati n Calcium 40 No 1{table t} QD Atorvastat in Calcium 40 Zanaflex 4 MG Zanaflex 4 MG No 1{table t_as_ne eded} TID Zanaflex 4 MG Venlafaxine HCl ER 150 MG Venlafaxine HCl ER 150 MG No Venlafaxin e HCl ER 150 MG Venlafaxine HCl ER 225 MG Venlafaxine HCl ER 225 MG No 1{table t_with_ food} QD Venlafaxin e HCl ER 225 MG HYDROcodone -Acetaminop hen 7.5-300 MG HYDROcodone -Acetaminop hen 7.5-300 MG No 1{table t_as_ne eded} QID HYDROcodon e-Acetamin ophen 7.5-300 MG Loratadine 10 MG Loratadine 10 MG No 1{table t} QD Loratadine 10 MG Albuterol Sulfate HFA 108 (90 Base) MCG/ACT Albuterol Sulfate HFA 108 (90 Base) MCG/ACT No 2{puffs } Albuterol Sulfate HFA 108 (90 Base) MCG/ACT Atorvastati n Calcium 40 MG Atorvastati n Calcium 40 MG No Atorvastat in Calcium 40 MG Carvedilol 12.5 MG Carvedilol 12.5 MG No Carvedilol 12.5 MG rOPINIRole HCl 1 MG rOPINIRole HCl 1 MG No QD rOPINIRole HCl 1 MG traZODone HCl 50 MG traZODone HCl 50 MG No 1{table t_at_be dtime_a s_neede d} QD traZODone HCl 50 MG buPROPion HCl ER (XL) 150 MG buPROPion HCl ER (XL) 150 MG No 1{table t_in_th e_morni ng} QD buPROPion HCl ER (XL) 150 MG Aspirin 325 MG Aspirin 325 MG No 1{table t} QD Aspirin 325 MG Meclizine HCl 25 MG Meclizine HCl 25 MG No 1{table t_as_ne eded} BID Meclizine HCl 25 MG Venlafaxine HCl ER 75 MG Venlafaxine HCl ER 75 MG No Venlafaxin e HCl ER 75 MG Gabapentin 300 MG Gabapentin 300 MG No Gabapentin 300 MG SEROquel 50 MG SEROquel 50 MG No 1{table t} QD SEROquel 50 MG Lyrica 100 MG Lyrica 100 MG No 1{capsu le} TID Lyrica 100 MG Venlafaxine HCl ER 150 MG Venlafaxine HCl ER 150 MG No Venlafaxin e HCl ER 150 MG Venlafaxine HCl ER 225 MG Venlafaxine HCl ER 225 MG No 1{table t_with_ food} QD Venlafaxin e HCl ER 225 MG HYDROcodone -Acetaminop hen 7.5-300 MG HYDROcodone -Acetaminop hen 7.5-300 MG No 1{table t_as_ne eded} QID HYDROcodon e-Acetamin ophen 7.5-300 MG Loratadine 10 MG Loratadine 10 MG No 1{table t} QD Loratadine 10 MG Albuterol Sulfate HFA 108 (90 Base) MCG/ACT Albuterol Sulfate HFA 108 (90 Base) MCG/ACT No 2{puffs } Albuterol Sulfate HFA 108 (90 Base) MCG/ACT Atorvastati n Calcium 40 MG Atorvastati n Calcium 40 MG No Atorvastat in Calcium 40 MG Carvedilol 12.5 MG Carvedilol 12.5 MG No Carvedilol 12.5 MG rOPINIRole HCl 1 MG rOPINIRole HCl 1 MG No QD rOPINIRole HCl 1 MG traZODone HCl 50 MG traZODone HCl 50 MG No 1{table t_at_be dtime_a s_neede d} QD traZODone HCl 50 MG buPROPion HCl ER (XL) 150 MG buPROPion HCl ER (XL) 150 MG No 1{table t_in_th e_morni ng} QD buPROPion HCl ER (XL) 150 MG Aspirin 325 MG Aspirin 325 MG No 1{table t} QD Aspirin 325 MG Loratadine 10 MG Loratadine 10 MG No 1{table t} QD Loratadine 10 MG Meclizine HCl 25 MG Meclizine HCl 25 MG No 1{table t_as_ne eded} BID Meclizine HCl 25 MG Venlafaxine HCl ER 75 MG Venlafaxine HCl ER 75 MG No Venlafaxin e HCl ER 75 MG Gabapentin 300 MG Gabapentin 300 MG No Gabapentin 300 MG Venlafaxine HCl ER 150 MG Venlafaxine HCl ER 150 MG No Venlafaxin e HCl ER 150 MG Venlafaxine HCl ER 225 MG Venlafaxine HCl ER 225 MG No 1{table t_with_ food} QD Venlafaxin e HCl ER 225 MG Albuterol Sulfate HFA 108 (90 Base) MCG/ACT Albuterol Sulfate HFA 108 (90 Base) MCG/ACT No 2{puffs } Albuterol Sulfate HFA 108 (90 Base) MCG/ACT HYDROcodone -Acetaminop hen 7.5-300 MG HYDROcodone -Acetaminop hen 7.5-300 MG No 1{table t_as_ne eded} QID HYDROcodon e-Acetamin ophen 7.5-300 MG Loratadine 10 MG Loratadine 10 MG No 1{table t} QD Loratadine 10 MG Albuterol Sulfate HFA 108 (90 Base) MCG/ACT Albuterol Sulfate HFA 108 (90 Base) MCG/ACT No 2{puffs } Albuterol Sulfate HFA 108 (90 Base) MCG/ACT Atorvastati n Calcium 40 MG Atorvastati n Calcium 40 MG No Atorvastat in Calcium 40 MG Carvedilol 12.5 MG Carvedilol 12.5 MG No Carvedilol 12.5 MG rOPINIRole HCl 1 MG rOPINIRole HCl 1 MG No QD rOPINIRole HCl 1 MG traZODone HCl 50 MG traZODone HCl 50 MG No 1{table t_at_be dtime_a s_neede d} QD traZODone HCl 50 MG buPROPion HCl ER (XL) 150 MG buPROPion HCl ER (XL) 150 MG No 1{table t_in_th e_morni ng} QD buPROPion HCl ER (XL) 150 MG Aspirin 325 MG Aspirin 325 MG No 1{table t} QD Aspirin 325 MG Aspirin 325 MG Aspirin 325 MG No 1{table t} QD Aspirin 325 MG Meclizine HCl 25 MG Meclizine HCl 25 MG No 1{table t_as_ne eded} BID Meclizine HCl 25 MG Venlafaxine HCl ER 75 MG Venlafaxine HCl ER 75 MG No Venlafaxin e HCl ER 75 MG Gabapentin 300 MG Gabapentin 300 MG No Gabapentin 300 MG Soma 350 MG Soma 350 MG No 1{table t_as_ne eded} QID Soma 350 MG Venlafaxine HCl ER 150 MG Venlafaxine HCl ER 150 MG No Venlafaxin e HCl ER 150 MG Venlafaxine HCl ER 225 MG Venlafaxine HCl ER 225 MG No 1{table t_with_ food} QD Venlafaxin e HCl ER 225 MG HYDROcodone -Acetaminop hen 7.5-300 MG HYDROcodone -Acetaminop hen 7.5-300 MG No 1{table t_as_ne eded} QID HYDROcodon e-Acetamin ophen 7.5-300 MG Loratadine 10 MG Loratadine 10 MG No 1{table t} QD Loratadine 10 MG Albuterol Sulfate HFA 108 (90 Base) MCG/ACT Albuterol Sulfate HFA 108 (90 Base) MCG/ACT No 2{puffs } Albuterol Sulfate HFA 108 (90 Base) MCG/ACT Atorvastati n Calcium 40 MG Atorvastati n Calcium 40 MG No Atorvastat in Calcium 40 MG Carvedilol 12.5 MG Carvedilol 12.5 MG No Carvedilol 12.5 MG rOPINIRole HCl 1 MG rOPINIRole HCl 1 MG No QD rOPINIRole HCl 1 MG Cetirizine HCl 10 MG Cetirizine HCl 10 MG No 1{table t} Cetirizine HCl 10 MG traZODone HCl 50 MG traZODone HCl 50 MG No 1{table t_at_be dtime_a s_neede d} QD traZODone HCl 50 MG buPROPion HCl ER (XL) 150 MG buPROPion HCl ER (XL) 150 MG No 1{table t_in_th e_morni ng} QD buPROPion HCl ER (XL) 150 MG Aspirin 325 MG Aspirin 325 MG No 1{table t} QD Aspirin 325 MG Meclizine HCl 25 MG Meclizine HCl 25 MG No 1{table t_as_ne eded} BID Meclizine HCl 25 MG Venlafaxine HCl ER 75 MG Venlafaxine HCl ER 75 MG No Venlafaxin e HCl ER 75 MG Gabapentin 300 MG Gabapentin 300 MG No Gabapentin 300 MG metFORMIN HCl ER 500 MG metFORMIN HCl ER 500 MG No QD metFORMIN HCl ER 500 MG Nasacort Allergy 24HR 55 MCG/ACT Nasacort Allergy 24HR 55 MCG/ACT No 1{puff_ in_each _nostri l} QD Nasacort Allergy 24HR 55 MCG/ACT Venlafaxine HCl ER 150 MG Venlafaxine HCl ER 150 MG No Venlafaxin e HCl ER 150 MG Venlafaxine HCl ER 225 MG Venlafaxine HCl ER 225 MG No 1{table t_with_ food} QD Venlafaxin e HCl ER 225 MG HYDROcodone -Acetaminop hen 7.5-300 MG HYDROcodone -Acetaminop hen 7.5-300 MG No 1{table t_as_ne eded} QID HYDROcodon e-Acetamin ophen 7.5-300 MG Loratadine 10 MG Loratadine 10 MG No 1{table t} QD Loratadine 10 MG Albuterol Sulfate HFA 108 (90 Base) MCG/ACT Albuterol Sulfate HFA 108 (90 Base) MCG/ACT No 2{puffs } Albuterol Sulfate HFA 108 (90 Base) MCG/ACT Atorvastati n Calcium 40 MG Atorvastati n Calcium 40 MG No Atorvastat in Calcium 40 MG Carvedilol 12.5 MG Carvedilol 12.5 MG No Carvedilol 12.5 MG rOPINIRole HCl 1 MG rOPINIRole HCl 1 MG No QD rOPINIRole HCl 1 MG Venlafaxine HCl ER 150 MG Venlafaxine HCl ER 150 MG No Venlafaxin e HCl ER 150 MG traZODone HCl 50 MG traZODone HCl 50 MG No 1{table t_at_be dtime_a s_neede d} QD traZODone HCl 50 MG buPROPion HCl ER (XL) 150 MG buPROPion HCl ER (XL) 150 MG No 1{table t_in_th e_morni ng} QD buPROPion HCl ER (XL) 150 MG Aspirin 325 MG Aspirin 325 MG No 1{table t} QD Aspirin 325 MG Meclizine HCl 25 MG Meclizine HCl 25 MG No 1{table t_as_ne eded} BID Meclizine HCl 25 MG Venlafaxine HCl ER 75 MG Venlafaxine HCl ER 75 MG No Venlafaxin e HCl ER 75 MG Gabapentin 300 MG Gabapentin 300 MG No Gabapentin 300 MG Venlafaxine HCl ER 150 MG Venlafaxine HCl ER 150 MG No Venlafaxin e HCl ER 150 MG Venlafaxine HCl ER 225 MG Venlafaxine HCl ER 225 MG No 1{table t_with_ food} QD Venlafaxin e HCl ER 225 MG HYDROcodone -Acetaminop hen 7.5-300 MG HYDROcodone -Acetaminop hen 7.5-300 MG No 1{table t_as_ne eded} QID HYDROcodon e-Acetamin ophen 7.5-300 MG Loratadine 10 MG Loratadine 10 MG No 1{table t} QD Loratadine 10 MG Albuterol Sulfate HFA 108 (90 Base) MCG/ACT Albuterol Sulfate HFA 108 (90 Base) MCG/ACT No 2{puffs } Albuterol Sulfate HFA 108 (90 Base) MCG/ACT Atorvastati n Calcium 40 MG Atorvastati n Calcium 40 MG No Atorvastat in Calcium 40 MG Carvedilol 12.5 MG Carvedilol 12.5 MG No Carvedilol 12.5 MG rOPINIRole HCl 1 MG rOPINIRole HCl 1 MG No QD rOPINIRole HCl 1 MG traZODone HCl 50 MG traZODone HCl 50 MG No 1{table t_at_be dtime_a s_neede d} QD traZODone HCl 50 MG buPROPion HCl ER (XL) 150 MG buPROPion HCl ER (XL) 150 MG No 1{table t_in_ e_morni ng} QD buPROPion HCl ER (XL) 150 MG Aspirin 325 MG Aspirin 325 MG No 1{table t} QD Aspirin 325 MG Meclizine HCl 25 MG Meclizine HCl 25 MG No 1{table t_as_ne eded} BID Meclizine HCl 25 MG Venlafaxine HCl ER 75 MG Venlafaxine HCl ER 75 MG No Venlafaxin e HCl ER 75 MG Gabapentin 300 MG Gabapentin 300 MG No Gabapentin 300 MG Venlafaxine HCl ER 150 MG Venlafaxine HCl ER 150 MG No Venlafaxin e HCl ER 150 MG Atorvastati n Calcium 40 MG Atorvastati n Calcium 40 MG No Atorvastat in Calcium 40 MG Venlafaxine HCl ER 225 MG Venlafaxine HCl ER 225 MG No 1{table t_with_ food} QD Venlafaxin e HCl ER 225 MG HYDROcodone -Acetaminop hen 7.5-300 MG HYDROcodone -Acetaminop hen 7.5-300 MG No 1{table t_as_ne eded} QID HYDROcodon e-Acetamin ophen 7.5-300 MG Loratadine 10 MG Loratadine 10 MG No 1{table t} QD Loratadine 10 MG Albuterol Sulfate HFA 108 (90 Base) MCG/ACT Albuterol Sulfate HFA 108 (90 Base) MCG/ACT No 2{puffs } Albuterol Sulfate HFA 108 (90 Base) MCG/ACT Atorvastati n Calcium 40 MG Atorvastati n Calcium 40 MG No Atorvastat in Calcium 40 MG Carvedilol 12.5 MG Carvedilol 12.5 MG No Carvedilol 12.5 MG rOPINIRole HCl 1 MG rOPINIRole HCl 1 MG No QD rOPINIRole HCl 1 MG traZODone HCl 50 MG traZODone HCl 50 MG No 1{table t_at_be dtime_a s_neede d} QD traZODone HCl 50 MG buPROPion HCl ER (XL) 150 MG buPROPion HCl ER (XL) 150 MG No 1{table t_in_th e_morni ng} QD buPROPion HCl ER (XL) 150 MG ProAir RespiClick 108 (90 Base) MCG/ACT ProAir RespiClick 108 (90 Base) MCG/ACT No 2{puffs _as_nee ded} QID ProAir RespiClick 108 (90 Base) MCG/ACT Aspirin 325 MG Aspirin 325 MG No 1{table t} QD Aspirin 325 MG Meclizine HCl 25 MG Meclizine HCl 25 MG No 1{table t_as_ne eded} BID Meclizine HCl 25 MG Venlafaxine HCl ER 75 MG Venlafaxine HCl ER 75 MG No Venlafaxin e HCl ER 75 MG Gabapentin 300 MG Gabapentin 300 MG No Gabapentin 300 MG Venlafaxine HCl ER 150 MG Venlafaxine HCl ER 150 MG No Venlafaxin e HCl ER 150 MG Venlafaxine HCl ER 225 MG Venlafaxine HCl ER 225 MG No 1{table t_with_ food} QD Venlafaxin e HCl ER 225 MG HYDROcodone -Acetaminop hen 7.5-300 MG HYDROcodone -Acetaminop hen 7.5-300 MG No 1{table t_as_ne eded} QID HYDROcodon e-Acetamin ophen 7.5-300 MG Loratadine 10 MG Loratadine 10 MG No 1{table t} QD Loratadine 10 MG Albuterol Sulfate HFA 108 (90 Base) MCG/ACT Albuterol Sulfate HFA 108 (90 Base) MCG/ACT No 2{puffs } Albuterol Sulfate HFA 108 (90 Base) MCG/ACT Atorvastati n Calcium 40 MG Atorvastati n Calcium 40 MG No Atorvastat in Calcium 40 MG Carvedilol 12.5 MG Carvedilol 12.5 MG No Carvedilol 12.5 MG rOPINIRole HCl 1 MG rOPINIRole HCl 1 MG No QD rOPINIRole HCl 1 MG traZODone HCl 50 MG traZODone HCl 50 MG No 1{table t_at_be dtime_a s_neede d} QD traZODone HCl 50 MG buPROPion HCl ER (XL) 150 MG buPROPion HCl ER (XL) 150 MG No 1{table t_in_th e_morni ng} QD buPROPion HCl ER (XL) 150 MG Cipro 500 MG Cipro 500 MG No 1{table t} BID Cipro 500 MG Aspirin 325 MG Aspirin 325 MG No 1{table t} QD Aspirin 325 MG Meclizine HCl 25 MG Meclizine HCl 25 MG No 1{table t_as_ne eded} BID Meclizine HCl 25 MG Venlafaxine HCl ER 75 MG Venlafaxine HCl ER 75 MG No Venlafaxin e HCl ER 75 MG Gabapentin 300 MG Gabapentin 300 MG No Gabapentin 300 MG Venlafaxine HCl ER 150 MG Venlafaxine HCl ER 150 MG No Venlafaxin e HCl ER 150 MG Venlafaxine HCl ER 225 MG Venlafaxine HCl ER 225 MG No 1{table t_with_ food} QD Venlafaxin e HCl ER 225 MG HYDROcodone -Acetaminop hen 7.5-300 MG HYDROcodone -Acetaminop hen 7.5-300 MG No 1{table t_as_ne eded} QID HYDROcodon e-Acetamin ophen 7.5-300 MG Loratadine 10 MG Loratadine 10 MG No 1{table t} QD Loratadine 10 MG Albuterol Sulfate HFA 108 (90 Base) MCG/ACT Albuterol Sulfate HFA 108 (90 Base) MCG/ACT No 2{puffs } Albuterol Sulfate HFA 108 (90 Base) MCG/ACT Atorvastati n Calcium 40 MG Atorvastati n Calcium 40 MG No Atorvastat in Calcium 40 MG Carvedilol 12.5 MG Carvedilol 12.5 MG No Carvedilol 12.5 MG rOPINIRole HCl 1 MG rOPINIRole HCl 1 MG No QD rOPINIRole HCl 1 MG traZODone HCl 50 MG traZODone HCl 50 MG No 1{table t_at_be dtime_a s_neede d} QD traZODone HCl 50 MG buPROPion HCl ER (XL) 150 MG buPROPion HCl ER (XL) 150 MG No 1{table t_in_th e_morni ng} QD buPROPion HCl ER (XL) 150 MG LaMICtal 200 MG LaMICtal 200 MG No 1{table t} BID LaMICtal 200 MG Aspirin 325 MG Aspirin 325 MG No 1{table t} QD Aspirin 325 MG Meclizine HCl 25 MG Meclizine HCl 25 MG No 1{table t_as_ne eded} BID Meclizine HCl 25 MG Venlafaxine HCl ER 75 MG Venlafaxine HCl ER 75 MG No Venlafaxin e HCl ER 75 MG Gabapentin 300 MG Gabapentin 300 MG No Gabapentin 300 MG Venlafaxine HCl ER 150 MG Venlafaxine HCl ER 150 MG No Venlafaxin e HCl ER 150 MG Venlafaxine HCl ER 225 MG Venlafaxine HCl ER 225 MG No 1{table t_with_ food} QD Venlafaxin e HCl ER 225 MG HYDROcodone -Acetaminop hen 7.5-300 MG HYDROcodone -Acetaminop hen 7.5-300 MG No 1{table t_as_ne eded} QID HYDROcodon e-Acetamin ophen 7.5-300 MG Loratadine 10 MG Loratadine 10 MG No 1{table t} QD Loratadine 10 MG Albuterol Sulfate HFA 108 (90 Base) MCG/ACT Albuterol Sulfate HFA 108 (90 Base) MCG/ACT No 2{puffs } Albuterol Sulfate HFA 108 (90 Base) MCG/ACT Atorvastati n Calcium 40 MG Atorvastati n Calcium 40 MG No Atorvastat in Calcium 40 MG Carvedilol 12.5 MG Carvedilol 12.5 MG No Carvedilol 12.5 MG rOPINIRole HCl 1 MG rOPINIRole HCl 1 MG No QD rOPINIRole HCl 1 MG traZODone HCl 50 MG traZODone HCl 50 MG No 1{table t_at_be dtime_a s_neede d} QD traZODone HCl 50 MG buPROPion HCl ER (XL) 150 MG buPROPion HCl ER (XL) 150 MG No 1{table t_in_th e_morni ng} QD buPROPion HCl ER (XL) 150 MG Coreg 12.5 MG Coreg 12.5 MG No Coreg 12.5 MG Aspirin 325 MG Aspirin 325 MG No 1{table t} QD Aspirin 325 MG Meclizine HCl 25 MG Meclizine HCl 25 MG No 1{table t_as_ne eded} BID Meclizine HCl 25 MG Venlafaxine HCl ER 75 MG Venlafaxine HCl ER 75 MG No Venlafaxin e HCl ER 75 MG Gabapentin 300 MG Gabapentin 300 MG No Gabapentin 300 MG Carvedilol Carvedilol Yes Na Dominguez ta ke 1 tablet by mouth twice daily [facility] ProAir HFA ProAir HFA Yes Na Dominguez 2 puffs as needed [facility] ProAir RespiClick ProAir RespiClick Yes Na Dominguez 2 puffs as needed [facility] Aspirin Aspirin Yes Na Dominguez 1 tablet [facility] Effexor Effexor Yes Na Dominguez not defined [facility] Lyrica Lyrica Yes Na Dominguez 1 capsule [facility] Clonazepam Clonazepam Yes Na Dominguez 1 tablet [facility] Trelegy Ellipta Trelegy Ellipta Yes Na Dominguez 1 puff [facility] [place] Yes Na Dominguez 1 tablet as needed [facility] Lamictal Lamictal Yes Na Dominguez 1 tablet [facility] Loratadine Loratadine Yes Na Dominguez 1 tablet [facility] Zanaflex Zanaflex Yes Na Dominguez 1 tabl et as needed [facility] Nexium Nexium Yes Na Dominguez 1 capsule [facility] Trazodone HCl Trazodone HCl Yes Na Dominguez 1 tablet at bedtime as needed [facility] Coreg Coreg Yes Na Dominguez not defined [facility] Soma Soma Yes Na Dominguez 1 tablet as needed [facility] Augmentin Augmentin Yes Na Dominguez 1 tablet [facility] Atorvastati n Calcium Atorvastati n Calcium Yes Na Dominguez 1 tablet Commo n [facility] Atorvastati n Calcium Atorvastati n Calcium Yes Na Dominguez 1 tablet Commo n [facility] Seroquel Seroquel Yes Na Dominguez 1 tablet [facility] Nasacort Allergy 24HR Nasacort Allergy 24HR Yes Na Dominguez 1 puff in each nostril [facility] Cipro Cipro Yes Na Dominguez 1 tablet C ommon [facility] Carvedilol Carvedilol Yes Na Dominguez TA KE 1 TABLET BY MOUTH TWICE DAILY [facility] Atorvastati n Calcium Atorvastati n Calcium Yes Na Dominguez TAKE 1 TABLET BY MOUTH EVERY DAY [facility] Flonase 50 MCG/ACT Flonase 50 MCG/ACT No 2{spray _in_eac h_nostr il} QD Flonase 50 MCG/ACT Venlafaxine HCl ER 150 MG Venlafaxine HCl ER 150 MG No Venlafaxin e HCl ER 150 MG Venlafaxine HCl ER 225 MG Venlafaxine HCl ER 225 MG No 1{table t_with_ food} QD Venlafaxin e HCl ER 225 MG HYDROcodone -Acetaminop hen 7.5-300 MG HYDROcodone -Acetaminop hen 7.5-300 MG No 1{table t_as_ne eded} QID HYDROcodon e-Acetamin ophen 7.5-300 MG Loratadine 10 MG Loratadine 10 MG No 1{table t} QD Loratadine 10 MG Albuterol Sulfate HFA 108 (90 Base) MCG/ACT Albuterol Sulfate HFA 108 (90 Base) MCG/ACT No 2{puffs } Albuterol Sulfate HFA 108 (90 Base) MCG/ACT Atorvastati n Calcium 40 MG Atorvastati n Calcium 40 MG No Atorvastat in Calcium 40 MG Carvedilol 12.5 MG Carvedilol 12.5 MG No Carvedilol 12.5 MG rOPINIRole HCl 1 MG rOPINIRole HCl 1 MG No QD rOPINIRole HCl 1 MG traZODone HCl 50 MG traZODone HCl 50 MG No 1{table t_at_be dtime_a s_neede d} QD traZODone HCl 50 MG buPROPion HCl ER (XL) 150 MG buPROPion HCl ER (XL) 150 MG No 1{table t_in_th e_morni ng} QD buPROPion HCl ER (XL) 150 MG Aspirin 325 MG Aspirin 325 MG No 1{table t} QD Aspirin 325 MG Meclizine HCl 25 MG Meclizine HCl 25 MG No 1{table t_as_ne eded} BID Meclizine HCl 25 MG Venlafaxine HCl ER 75 MG Venlafaxine HCl ER 75 MG No Venlafaxin e HCl ER 75 MG Gabapentin 300 MG Gabapentin 300 MG No Gabapentin 300 MG clonazePAM 1 MG clonazePAM 1 MG No 1{table t} QD clonazePAM 1 MG Venlafaxine HCl ER 150 MG Venlafaxine HCl ER 150 MG No Venlafaxin e HCl ER 150 MG Venlafaxine HCl ER 225 MG Venlafaxine HCl ER 225 MG No 1{table t_with_ food} QD Venlafaxin e HCl ER 225 MG traZODone HCl 50 MG traZODone HCl 50 MG No 1{table t_at_be dtime_a s_neede d} QD traZODone HCl 50 MG HYDROcodone -Acetaminop hen 7.5-300 MG HYDROcodone -Acetaminop hen 7.5-300 MG No 1{table t_as_ne eded} QID HYDROcodon e-Acetamin ophen 7.5-300 MG Loratadine 10 MG Loratadine 10 MG No 1{table t} QD Loratadine 10 MG Albuterol Sulfate HFA 108 (90 Base) MCG/ACT Albuterol Sulfate HFA 108 (90 Base) MCG/ACT No 2{puffs } Albuterol Sulfate HFA 108 (90 Base) MCG/ACT Atorvastati n Calcium 40 MG Atorvastati n Calcium 40 MG No Atorvastat in Calcium 40 MG Carvedilol 12.5 MG Carvedilol 12.5 MG No Carvedilol 12.5 MG rOPINIRole HCl 1 MG rOPINIRole HCl 1 MG No QD rOPINIRole HCl 1 MG traZODone HCl 50 MG traZODone HCl 50 MG No 1{table t_at_be dtime_a s_neede d} QD traZODone HCl 50 MG buPROPion HCl ER (XL) 150 MG buPROPion HCl ER (XL) 150 MG No 1{table t_in_th e_morni ng} QD buPROPion HCl ER (XL) 150 MG Aspirin 325 MG Aspirin 325 MG No 1{table t} QD Aspirin 325 MG Carvedilol 12.5 MG Carvedilol 12.5 MG No 1{table t_with_ food} BID Carvedilol 12.5 MG Meclizine HCl 25 MG Meclizine HCl 25 MG No 1{table t_as_ne eded} BID Meclizine HCl 25 MG Venlafaxine HCl ER 75 MG Venlafaxine HCl ER 75 MG No Venlafaxin e HCl ER 75 MG Gabapentin 300 MG Gabapentin 300 MG No Gabapentin 300 MG Venlafaxine HCl ER 150 MG Venlafaxine HCl ER 150 MG No Venlafaxin e HCl ER 150 MG rOPINIRole HCl 1 MG rOPINIRole HCl 1 MG No QD rOPINIRole HCl 1 MG traZODone HCl 50 MG traZODone HCl 50 MG No 1{table t_at_be dtime_a s_neede d} QD traZODone HCl 50 MG Carvedilol 12.5 MG Carvedilol 12.5 MG No Carvedilol 12.5 MG Loratadine 10 MG Loratadine 10 MG No 1{table t} QD Loratadine 10 MG Albuterol Sulfate HFA 108 (90 Base) MCG/ACT Albuterol Sulfate HFA 108 (90 Base) MCG/ACT No 2{puffs } Albuterol Sulfate HFA 108 (90 Base) MCG/ACT buPROPion HCl ER (XL) 150 MG buPROPion HCl ER (XL) 150 MG No 1{table t_in_th e_morni ng} QD buPROPion HCl ER (XL) 150 MG Venlafaxine HCl ER 75 MG Venlafaxine HCl ER 75 MG No Venlafaxin e HCl ER 75 MG Venlafaxine HCl ER 225 MG Venlafaxine HCl ER 225 MG No 1{table t_with_ food} QD Venlafaxin e HCl ER 225 MG HYDROcodone -Acetaminop hen 7.5-300 MG HYDROcodone -Acetaminop hen 7.5-300 MG No 1{table t_as_ne eded} QID HYDROcodon e-Acetamin ophen 7.5-300 MG Gabapentin 300 MG Gabapentin 300 MG No Gabapentin 300 MG Meclizine HCl 25 MG Meclizine HCl 25 MG No 1{table t_as_ne eded} BID Meclizine HCl 25 MG Aspirin 325 MG Aspirin 325 MG No 1{table t} QD Aspirin 325 MG Atorvastati n Calcium 40 MG Atorvastati n Calcium 40 MG No Atorvastat in Calcium 40 MG NexIUM 40 MG NexIUM 40 MG No 1{capsu le} QD NexIUM 40 MG ProAir HFA 108 (90 Base) MCG/ACT ProAir HFA 108 (90 Base) MCG/ACT No 2{puffs _as_nee ded} QID ProAir HFA 108 (90 Base) MCG/ACT Atorvastati n Calcium 40 MG Atorvastati n Calcium 40 MG No Atorvastat in Calcium 40 MG ProAir HFA 108 (90 Base) MCG/ACT ProAir HFA 108 (90 Base) MCG/ACT No 2{puffs _as_nee ded} QID ProAir HFA 108 (90 Base) MCG/ACT Soma 350 MG Soma 350 MG No 1{table t_as_ne eded} QID Soma 350 MG ProAir RespiClick 108 (90 Base) MCG/ACT ProAir RespiClick 108 (90 Base) MCG/ACT No 2{puffs _as_nee ded} QID ProAir RespiClick 108 (90 Base) MCG/ACT Albuterol Sulfate HFA 108 (90 Base) MCG/ACT Albuterol Sulfate HFA 108 (90 Base) MCG/ACT No Albuterol Sulfate HFA 108 (90 Base) MCG/ACT Atorvastati n Calcium 40 Atorvastati n Calcium 40 No 1{table t} QD Atorvastat in Calcium 40 Lyrica 100 MG Lyrica 100 MG No 1{capsu le} TID Lyrica 100 MG LaMICtal 200 MG LaMICtal 200 MG No 1{table t} BID LaMICtal 200 MG SEROquel 50 MG SEROquel 50 MG No 1{table t} QD SEROquel 50 MG traZODone HCl 50 MG traZODone HCl 50 MG No 1{table t_at_be dtime_a s_neede d} QD traZODone HCl 50 MG Loratadine 10 MG Loratadine 10 MG No 1{table t} QD Loratadine 10 MG NexIUM 40 MG NexIUM 40 MG No 1{capsu le} QD NexIUM 40 MG Aspirin 325 MG Aspirin 325 MG No 1{table t} QD Aspirin 325 MG Zanaflex 4 MG Zanaflex 4 MG No 1{table t_as_ne eded} TID Zanaflex 4 MG Trelegy Ellipta 100-62.5-25 MCG/INH Trelegy Ellipta 100-62.5-25 MCG/INH No 1{puff} QD Trelegy Ellipta 100-62.5-2 5 MCG/INH clonazePAM 1 MG clonazePAM 1 MG No 1{table t} QD clonazePAM 1 MG Cipro 500 MG Cipro 500 MG No 1{table t} BID Cipro 500 MG Nasacort Allergy 24HR 55 MCG/ACT Nasacort Allergy 24HR 55 MCG/ACT No 1{puff_ in_each _nostri l} QD Nasacort Allergy 24HR 55 MCG/ACT Coreg 12.5 MG Coreg 12.5 MG No Coreg 12.5 MG Carvedilol 12.5 MG Carvedilol 12.5 MG No 1{table t_with_ food} BID Carvedilol 12.5 MG Venlafaxine HCl ER 150 MG Venlafaxine HCl ER 150 MG No Venlafaxin e HCl ER 150 MG Soma 350 MG Soma 350 MG No 1{table t_as_ne eded} QID Soma 350 MG Zanaflex 4 MG Zanaflex 4 MG No 1{table t_as_ne eded} TID Zanaflex 4 MG ProAir RespiClick 108 (90 Base) MCG/ACT ProAir RespiClick 108 (90 Base) MCG/ACT No 2{puffs _as_nee ded} QID ProAir RespiClick 108 (90 Base) MCG/ACT Albuterol Sulfate HFA 108 (90 Base) MCG/ACT Albuterol Sulfate HFA 108 (90 Base) MCG/ACT No 2{puffs } Albuterol Sulfate HFA 108 (90 Base) MCG/ACT NexIUM 40 MG NexIUM 40 MG No 1{capsu le} QD NexIUM 40 MG Augmentin 875-125 MG Augmentin 875-125 MG No 1{table t} BID Augmentin 875-125 MG Atorvastati n Calcium 40 MG Atorvastati n Calcium 40 MG No Atorvastat in Calcium 40 MG Flonase 50 MCG/ACT Flonase 50 MCG/ACT No 2{spray _in_eac h_nostr il} QD Flonase 50 MCG/ACT Lyrica 100 MG Lyrica 100 MG No 1{capsu le} TID Lyrica 100 MG Carvedilol 12.5 MG Carvedilol 12.5 MG No 1{table t_with_ food} BID Carvedilol 12.5 MG Nasacort Allergy 24HR 55 MCG/ACT Nasacort Allergy 24HR 55 MCG/ACT No 1{puff_ in_each _nostri l} QD Nasacort Allergy 24HR 55 MCG/ACT Cetirizine HCl 10 MG Cetirizine HCl 10 MG No 1{table t} Cetirizine HCl 10 MG ProAir HFA 108 (90 Base) MCG/ACT ProAir HFA 108 (90 Base) MCG/ACT No 2{puffs _as_nee ded} QID ProAir HFA 108 (90 Base) MCG/ACT Aspirin 325 MG Aspirin 325 MG No 1{table t} QD Aspirin 325 MG Loratadine 10 MG Loratadine 10 MG No 1{table t} QD Loratadine 10 MG Cipro 500 MG Cipro 500 MG No 1{table t} BID Cipro 500 MG traZODone HCl 50 MG traZODone HCl 50 MG No 1{table t_at_be dtime_a s_neede d} QD traZODone HCl 50 MG Coreg 12.5 MG Coreg 12.5 MG No Coreg 12.5 MG SEROquel 50 MG SEROquel 50 MG No 1{table t} QD SEROquel 50 MG Venlafaxine HCl ER 150 MG Venlafaxine HCl ER 150 MG No Venlafaxin e HCl ER 150 MG clonazePAM 1 MG clonazePAM 1 MG No 1{table t} QD clonazePAM 1 MG LaMICtal 200 MG LaMICtal 200 MG No 1{table t} BID LaMICtal 200 MG Trelegy Ellipta 100-62.5-25 MCG/INH Trelegy Ellipta 100-62.5-25 MCG/INH No 1{puff} QD Trelegy Ellipta 100-62.5-2 5 MCG/INH Albuterol Sulfate HFA 108 (90 Base) MCG/ACT Albuterol Sulfate HFA 108 (90 Base) MCG/ACT No Albuterol Sulfate HFA 108 (90 Base) MCG/ACT Cetirizine HCl 10 MG Cetirizine HCl 10 MG No 1{table t} Cetirizine HCl 10 MG metFORMIN HCl ER 500 MG metFORMIN HCl ER 500 MG No QD metFORMIN HCl ER 500 MG Trelegy Ellipta 100-62.5-25 MCG/INH Trelegy Ellipta 100-62.5-25 MCG/INH No 1{puff} QD Trelegy Ellipta 100-62.5-2 5 MCG/INH ProAir RespiClick 108 (90 Base) MCG/ACT ProAir RespiClick 108 (90 Base) MCG/ACT No 2{puffs _as_nee ded} QID ProAir RespiClick 108 (90 Base) MCG/ACT ProAir RespiClick 108 ProAir RespiClick 108 No ProAir RespiClick 108 ProAir HFA 108 (90 Base) MCG/ACT ProAir HFA 108 (90 Base) MCG/ACT No 2{puffs _as_nee ded} QID ProAir HFA 108 (90 Base) MCG/ACT Coreg 12.5 MG Coreg 12.5 MG No Coreg 12.5 MG Soma 350 MG Soma 350 MG No 1{table t_as_ne eded} QID Soma 350 MG SEROquel 50 MG SEROquel 50 MG No 1{table t} QD SEROquel 50 MG Cetirizine HCl 10 MG Cetirizine HCl 10 MG No 1{table t} Cetirizine HCl 10 MG Albuterol Sulfate HFA 108 (90 Base) MCG/ACT Albuterol Sulfate HFA 108 (90 Base) MCG/ACT No Albuterol Sulfate HFA 108 (90 Base) MCG/ACT LaMICtal 200 MG LaMICtal 200 MG No 1{table t} BID LaMICtal 200 MG Flonase 50 MCG/ACT Flonase 50 MCG/ACT No 2{spray _in_eac h_nostr il} QD Flonase 50 MCG/ACT Loratadine 10 MG Loratadine 10 MG No 1{table t} QD Loratadine 10 MG Venlafaxine HCl ER 150 MG Venlafaxine HCl ER 150 MG No Venlafaxin e HCl ER 150 MG Zanaflex 4 MG Zanaflex 4 MG No 1{table t_as_ne eded} TID Zanaflex 4 MG metFORMIN HCl ER 500 MG metFORMIN HCl ER 500 MG No QD metFORMIN HCl ER 500 MG Lyrica 100 MG Lyrica 100 MG No 1{capsu le} TID Lyrica 100 MG NexIUM 40 MG NexIUM 40 MG No 1{capsu le} QD NexIUM 40 MG Cipro 500 MG Cipro 500 MG No 1{table t} BID Cipro 500 MG Atorvastati n Calcium 40 MG Atorvastati n Calcium 40 MG No Atorvastat in Calcium 40 MG Carvedilol 12.5 MG Carvedilol 12.5 MG No 1{table t_with_ food} BID Carvedilol 12.5 MG Aspirin 325 MG Aspirin 325 MG No 1{table t} QD Aspirin 325 MG Nasacort Allergy 24HR 55 MCG/ACT Nasacort Allergy 24HR 55 MCG/ACT No 1{puff_ in_each _nostri l} QD Nasacort Allergy 24HR 55 MCG/ACT clonazePAM 1 MG clonazePAM 1 MG No 1{table t} QD clonazePAM 1 MG traZODone HCl 50 MG traZODone HCl 50 MG No 1{table t_at_be dtime_a s_neede d} QD traZODone HCl 50 MG Loratadine 10 MG Loratadine 10 MG No 1{table t} QD Loratadine 10 MG Albuterol Sulfate HFA 108 (90 Base) MCG/ACT Albuterol Sulfate HFA 108 (90 Base) MCG/ACT No 2{puffs } Albuterol Sulfate HFA 108 (90 Base) MCG/ACT Cetirizine HCl 10 MG Cetirizine HCl 10 MG No 1{table t} Cetirizine HCl 10 MG NexIUM 40 MG NexIUM 40 MG No 1{capsu le} QD NexIUM 40 MG Venlafaxine HCl ER 150 MG Venlafaxine HCl ER 150 MG No Venlafaxin e HCl ER 150 MG Aspirin 325 MG Aspirin 325 MG No 1{table t} QD Aspirin 325 MG Gabapentin 300 MG Gabapentin 300 MG No Gabapentin 300 MG SEROquel 50 MG SEROquel 50 MG No 1{table t} QD SEROquel 50 MG [place] 10-325 MG [place] 10-325 MG No 1{table t_as_ne eded} QID [place] 10-325 MG Cipro 500 MG Cipro 500 MG No 1{table t} BID Cipro 500 MG traZODone HCl 50 MG traZODone HCl 50 MG No 1{table t_at_be dtime_a s_neede d} QD traZODone HCl 50 MG Carvedilol 12.5 MG Carvedilol 12.5 MG No Carvedilol 12.5 MG Albuterol Sulfate HFA 108 (90 Base) MCG/ACT Albuterol Sulfate HFA 108 (90 Base) MCG/ACT No Albuterol Sulfate HFA 108 (90 Base) MCG/ACT Nasacort Allergy 24HR 55 MCG/ACT Nasacort Allergy 24HR 55 MCG/ACT No 1{puff_ in_each _nostri l} QD Nasacort Allergy 24HR 55 MCG/ACT Loratadine 10 MG Loratadine 10 MG No 1{table t} QD Loratadine 10 MG clonazePAM 1 MG clonazePAM 1 MG No 1{table t} QD clonazePAM 1 MG Coreg 12.5 MG Coreg 12.5 MG No Coreg 12.5 MG LaMICtal 200 MG LaMICtal 200 MG No 1{table t} BID LaMICtal 200 MG ProAir HFA 108 (90 Base) MCG/ACT ProAir HFA 108 (90 Base) MCG/ACT No 2{puffs _as_nee ded} QID ProAir HFA 108 (90 Base) MCG/ACT Soma 350 MG Soma 350 MG No 1{table t_as_ne eded} QID Soma 350 MG Trelegy Ellipta 100-62.5-25 MCG/INH Trelegy Ellipta 100-62.5-25 MCG/INH No 1{puff} QD Trelegy Ellipta 100-62.5-2 5 MCG/INH ProAir RespiClick 108 (90 Base) MCG/ACT ProAir RespiClick 108 (90 Base) MCG/ACT No 2{puffs _as_nee ded} QID ProAir RespiClick 108 (90 Base) MCG/ACT metFORMIN HCl ER 500 MG metFORMIN HCl ER 500 MG No QD metFORMIN HCl ER 500 MG Cetirizine HCl 10 MG Cetirizine HCl 10 MG No 1{table t} Cetirizine HCl 10 MG Flonase 50 MCG/ACT Flonase 50 MCG/ACT No 2{spray _in_eac h_nostr il} QD Flonase 50 MCG/ACT Zanaflex 4 MG Zanaflex 4 MG No 1{table t_as_ne eded} TID Zanaflex 4 MG Lyrica 100 MG Lyrica 100 MG No 1{capsu le} TID Lyrica 100 MG Atorvastati n Calcium 40 MG Atorvastati n Calcium 40 MG No Atorvastat in Calcium 40 MG Carvedilol 12.5 MG Carvedilol 12.5 MG No Carvedilol 12.5 MG Coreg 12.5 MG Coreg 12.5 MG No Coreg 12.5 MG ProAir RespiClick 108 ProAir RespiClick 108 No ProAir RespiClick 108 NexIUM 40 MG NexIUM 40 MG No 1{capsu le} QD NexIUM 40 MG Cipro 500 MG Cipro 500 MG No 1{table t} BID Cipro 500 MG traZODone HCl 50 MG traZODone HCl 50 MG No 1{table t_at_be dtime_a s_neede d} QD traZODone HCl 50 MG LaMICtal 200 MG LaMICtal 200 MG No 1{table t} BID LaMICtal 200 MG Albuterol Sulfate HFA 108 (90 Base) MCG/ACT Albuterol Sulfate HFA 108 (90 Base) MCG/ACT No 2{puffs } Albuterol Sulfate HFA 108 (90 Base) MCG/ACT Loratadine 10 MG Loratadine 10 MG No 1{table t} QD Loratadine 10 MG clonazePAM 1 MG clonazePAM 1 MG No 1{table t} QD clonazePAM 1 MG Flonase 50 MCG/ACT Flonase 50 MCG/ACT No 2{spray _in_eac h_nostr il} QD Flonase 50 MCG/ACT Aspirin 325 MG Aspirin 325 MG No 1{table t} QD Aspirin 325 MG Cetirizine HCl 10 MG Cetirizine HCl 10 MG No 1{table t} Cetirizine HCl 10 MG Zanaflex 4 MG Zanaflex 4 MG No 1{table t_as_ne eded} TID Zanaflex 4 MG Venlafaxine HCl ER 150 MG Venlafaxine HCl ER 150 MG No Venlafaxin e HCl ER 150 MG metFORMIN HCl ER 500 MG metFORMIN HCl ER 500 MG No QD metFORMIN HCl ER 500 MG ProAir RespiClick 108 (90 Base) MCG/ACT ProAir RespiClick 108 (90 Base) MCG/ACT No 2{puffs _as_nee ded} QID ProAir RespiClick 108 (90 Base) MCG/ACT SEROquel 50 MG SEROquel 50 MG No 1{table t} QD SEROquel 50 MG Nasacort Allergy 24HR 55 MCG/ACT Nasacort Allergy 24HR 55 MCG/ACT No 1{puff_ in_each _nostri l} QD Nasacort Allergy 24HR 55 MCG/ACT Gabapentin 300 MG Gabapentin 300 MG No Gabapentin 300 MG Soma 350 MG Soma 350 MG No 1{table t_as_ne eded} QID Soma 350 MG Lyrica 100 MG Lyrica 100 MG No 1{capsu le} TID Lyrica 100 MG Atorvastati n Calcium 40 MG Atorvastati n Calcium 40 MG No Atorvastat in Calcium 40 MG Carvedilol 12.5 MG Carvedilol 12.5 MG No 1{table t_with_ food} BID Carvedilol 12.5 MG Loratadine 10 MG Loratadine 10 MG No 1{table t} QD Loratadine 10 MG clonazePAM 1 MG clonazePAM 1 MG No 1{table t} QD clonazePAM 1 MG Coreg 12.5 MG Coreg 12.5 MG No Coreg 12.5 MG ProAir RespiClick 108 ProAir RespiClick 108 No ProAir RespiClick 108 Flonase 50 MCG/ACT Flonase 50 MCG/ACT No 2{spray _in_eac h_nostr il} QD Flonase 50 MCG/ACT Albuterol Sulfate HFA 108 (90 Base) MCG/ACT Albuterol Sulfate HFA 108 (90 Base) MCG/ACT No 2{puffs } Albuterol Sulfate HFA 108 (90 Base) MCG/ACT LaMICtal 200 MG LaMICtal 200 MG No 1{table t} BID LaMICtal 200 MG Aspirin 325 MG Aspirin 325 MG No 1{table t} QD Aspirin 325 MG SEROquel 50 MG SEROquel 50 MG No 1{table t} QD SEROquel 50 MG Gabapentin 300 MG Gabapentin 300 MG No Gabapentin 300 MG Nasacort Allergy 24HR 55 MCG/ACT Nasacort Allergy 24HR 55 MCG/ACT No 1{puff_ in_each _nostri l} QD Nasacort Allergy 24HR 55 MCG/ACT Cetirizine HCl 10 MG Cetirizine HCl 10 MG No 1{table t} Cetirizine HCl 10 MG Zanaflex 4 MG Zanaflex 4 MG No 1{table t_as_ne eded} TID Zanaflex 4 MG metFORMIN HCl ER 500 MG metFORMIN HCl ER 500 MG No QD metFORMIN HCl ER 500 MG ProAir RespiClick 108 (90 Base) MCG/ACT ProAir RespiClick 108 (90 Base) MCG/ACT No 2{puffs _as_nee ded} QID ProAir RespiClick 108 (90 Base) MCG/ACT Venlafaxine HCl ER 150 MG Venlafaxine HCl ER 150 MG No Venlafaxin e HCl ER 150 MG Cipro 500 MG Cipro 500 MG No 1{table t} BID Cipro 500 MG Vital Signs Vital Name Observation Time Observation Value Comments S ource height 2023-03-01 14:20:00 66.00 [in_i] Com [facility] weight 2023-03-01 14:20:00 176 [lb_av] Comm on [facility] temperature 2023-03-01 14:20:00 97.5 [degF] Com [facility] bmi 2023-03-01 14:20:00 28.4 kg/m2 Commo n [facility] oximetry 2023-03-01 14:20:00 92 % Commo n [facility] respiratory rate 2023-03-01 14:20:00 17 /min Common [facility] blood pressure systolic 2023-03-01 14:20:00 132 mm[Hg] Common [facility] blood pressure diastolic 2023-03-01 14:20:00 78 mm[Hg] Common [facility] height 2023-01-22 14:40:00 66.00 [in_i] Com [facility] weight 2023-01-22 14:40:00 175.2 [lb_av] Co mmon [facility] temperature 2023-01-22 14:40:00 96.2 [degF] Com [facility] bmi 2023-01-22 14:40:00 28.27 kg/m2 Comm on [facility] oximetry 2023-01-22 14:40:00 89 % Commo n [facility] respiratory rate 2023-01-22 14:40:00 17 /min Common [facility] blood pressure systolic 2023-01-22 14:40:00 146 mm[Hg] Common [facility] blood pressure diastolic 2023-01-22 14:40:00 76 mm[Hg] Common [facility] height 2023-01-22 14:00:00 66.00 [in_i] Com [facility] weight 2023-01-22 14:00:00 175.2 [lb_av] Co mmon [facility] temperature 2023-01-22 14:00:00 96.2 [degF] Com [facility] bmi 2023-01-22 14:00:00 28.27 kg/m2 Comm on [facility] oximetry 2023-01-22 14:00:00 89 % Commo n [facility] respiratory rate 2023-01-22 14:00:00 17 /min Common [facility] blood pressure systolic 2023-01-22 14:00:00 146 mm[Hg] [facility] blood pressure diastolic 2023-01-22 14:00:00 76 mm[Hg] [facility] height 2022-11-17 15:40:00 66.00 [in_i] Com [facility] weight 2022-11-17 15:40:00 176.0 [lb_av] Co [facility] temperature 2022-11-17 15:40:00 97.7 [degF] Com [facility] bmi 2022-11-17 15:40:00 28.4 kg/m2 [facility] [facility] oximetry 2022-11-17 15:40:00 88 % Commo n [facility] respiratory rate 2022-11-17 15:40:00 18 /min Common [facility] blood pressure systolic 2022-11-17 15:40:00 135 mm[Hg] Common Spiri t [facility] blood pressure diastolic 2022-11-17 15:40:00 78 mm[Hg] [facility] height 2021-12-11 15:20:00 66.00 [in_i] Com [facility] weight 2021-12-11 15:20:00 175.6 [lb_av] Co [facility] temperature 2021-12-11 15:20:00 97.9 [degF] Com [facility] bmi 2021-12-11 15:20:00 28.34 kg/m2 Comm on [facility] oximetry 2021-12-11 15:20:00 97 % Commo n [facility] respiratory rate 2021-12-11 15:20:00 18 /min [facility] blood pressure systolic 2021-12-11 15:20:00 138 mm[Hg] Common [facility] blood pressure diastolic 2021-12-11 15:20:00 76 mm[Hg] [facility] height 2021-08-05 11:40:00 66.00 [in_i] Com [facility] weight 2021-08-05 11:40:00 170.02 [lb_av] C ommon [facility] temperature 2021-08-05 11:40:00 95.3 [degF] Com [facility] bmi 2021-08-05 11:40:00 27.44 kg/m2 Comm on [facility] oximetry 2021-08-05 11:40:00 95 % Commo n [facility] respiratory rate 2021-08-05 11:40:00 16 /min [facility] blood pressure systolic 2021-08-05 11:40:00 139 mm[Hg] [facility] blood pressure diastolic 2021-08-05 11:40:00 64 mm[Hg] [facility] BP Systolic 2025-04-18 17:19:00 171 mm[Hg] Charles Westbrook BP Diastolic 2025-04-18 17:19:00 53 mm[Hg] Isaiah Westbrook Weight Measured 2025-04-18 17:19:00 157.00 pounds Ben Westbrook Height Measured 2025-04-18 17:19:00 62.00 inches Ben Westbrook Body Temperature 2025-04-18 17:19:00 98.50 degrees Ben Westbrook Heart Rate 2025-04-18 17:19:00 64.00 /min Yudelka en F Pietro Respiratory Rate 2025-04-18 17:19:00 16.00 /min Ben F Pietro BP Systolic 2025-04-12 15:16:00 177 mm[Hg] Step hen F Pietro BP Diastolic 2025-04-12 15:16:00 69 mm[Hg] Isaiah phen F Pietro Weight Measured 2025-04-12 15:16:00 156.00 pounds Ben F Pietro Height Measured 2025-04-12 15:16:00 62.00 inches Ben F Pietro Body Temperature 2025-04-12 15:16:00 97.60 degrees Ben F Ipetro Heart Rate 2025-04-12 15:16:00 71.00 /min Yudelka en F Pietro Respiratory Rate 2025-04-12 15:16:00 Ben F Pietro BP Systolic 2025-02-19 15:12:00 162 mm[Hg] Step hen F Pietro BP Diastolic 2025-02-19 15:12:00 72 mm[Hg] Isaiah phen F Pietro Weight Measured 2025-02-19 15:12:00 156.80 pounds Ben F Pietro Height Measured 2025-02-19 15:12:00 62.00 inches Ben F Pietro Body Temperature 2025-02-19 15:12:00 97.80 degrees Ben F Pietro Heart Rate 2025-02-19 15:12:00 60.00 /min Yudelka en F Pietro Respiratory Rate 2025-02-19 15:12:00 15.00 /min Ben F Pietro BP Systolic 2025-01-24 11:00:00 151 mm[Hg] Step hen F Pietro BP Diastolic 2025-01-24 11:00:00 62 mm[Hg] Isaiah phen F Pietro Weight Measured 2025-01-24 11:00:00 156.00 pounds Ben F Pietro Height Measured 2025-01-24 11:00:00 62.00 inches Ben F Pietro Body Temperature 2025-01-24 11:00:00 97.50 degrees Ben F Pietro Heart Rate 2025-01-24 11:00:00 72.00 /min Yudelka en F Pietro Respiratory Rate 2025-01-24 11:00:00 18.00 /min Ben F Pietro BP Systolic 2025-01-19 18:06:00 186 mm[Hg] Step hen F Pietro BP Diastolic 2025-01-19 18:06:00 72 mm[Hg] Isaiah phen F Pietro Weight Measured 2025-01-19 18:06:00 161.40 pounds Ben F Pietro Height Measured 2025-01-19 18:06:00 62.00 inches Ben F Pietro Body Temperature 2025-01-19 18:06:00 97.50 degrees Ben F Pietro Heart Rate 2025-01-19 18:06:00 65.00 /min Yudelka en F Pietro Respiratory Rate 2025-01-19 18:06:00 18.00 /min Ben F Pietro BP Systolic 2025-01-19 17:52:00 186 mm[Hg] Step hen F Pietro BP Diastolic 2025-01-19 17:52:00 72 mm[Hg] Isaiah phen F Pietro Weight Measured 2025-01-19 17:52:00 161.40 pounds Ben F Pietro Height Measured 2025-01-19 17:52:00 62.00 inches Ben F Pietro Body Temperature 2025-01-19 17:52:00 97.50 degrees Ben F Pietro Heart Rate 2025-01-19 17:52:00 65.00 /min Yudelka en F Pietro Respiratory Rate 2025-01-19 17:52:00 18.00 /min Ben F Pietro BP Systolic 2025-01-04 10:52:00 132 mm[Hg] Step hen F Pietro BP Diastolic 2025-01-04 10:52:00 72 mm[Hg] Isaiah phen F Pietro Weight Measured 2025-01-04 10:52:00 159.80 pounds Ben F Pietro Height Measured 2025-01-04 10:52:00 62.00 inches Ben F Pietro Body Temperature 2025-01-04 10:52:00 98.60 degrees Ben F Pietro Heart Rate 2025-01-04 10:52:00 85.00 /min Yudelka en F Pietro Respiratory Rate 2025-01-04 10:52:00 Ben F Pietro BP Systolic 2025-01-01 16:04:00 178 mm[Hg] Step hen F Pietro BP Diastolic 2025-01-01 16:04:00 64 mm[Hg] Isaiah phen F Pietro Weight Measured 2025-01-01 16:04:00 160.40 pounds Ben F Pietro Height Measured 2025-01-01 16:04:00 62.00 inches Ben F Pietro Body Temperature 2025-01-01 16:04:00 98.60 degrees Ben F Pietro Heart Rate 2025-01-01 16:04:00 65.00 /min Yudelka en F Pietro Respiratory Rate 2025-01-01 16:04:00 18.00 /min Ben F Ipetro BP Systolic 2024-12-27 16:03:00 145 mm[Hg] Step hen F Pietro BP Diastolic 2024-12-27 16:03:00 78 mm[Hg] Isaiah phen F Pietro Weight Measured 2024-12-27 16:03:00 161.60 pounds Ben F Pietro Height Measured 2024-12-27 16:03:00 62.00 inches Ben F Pietro Body Temperature 2024-12-27 16:03:00 98.10 degrees Ben F Pietro Heart Rate 2024-12-27 16:03:00 89.00 /min Yudelka en F Pietro Respiratory Rate 2024-12-27 16:03:00 21.00 /min Ben F Pietro BP Systolic 2024-11-09 13:16:00 138 mm[Hg] Step hen F Pietro BP Diastolic 2024-11-09 13:16:00 75 mm[Hg] Isaiah phen F Pietro Weight Measured 2024-11-09 13:16:00 166.60 pounds Ben F Pietro Height Measured 2024-11-09 13:16:00 62.00 inches Ben F Pietro Body Temperature 2024-11-09 13:16:00 98.40 degrees Ben F Pietro Heart Rate 2024-11-09 13:16:00 68.00 /min Yudelka en F Pietro Respiratory Rate 2024-11-09 13:16:00 18.00 /min Ben F Pietro BP Systolic 2024-10-12 14:23:00 159 mm[Hg] Step hen F Pietro BP Diastolic 2024-10-12 14:23:00 80 mm[Hg] Isaiah phen F Pietro Weight Measured 2024-10-12 14:23:00 166.40 pounds Ben F Pietro Height Measured 2024-10-12 14:23:00 62.00 inches Ben F Pietro Body Temperature 2024-10-12 14:23:00 98.10 degrees Ben F Pietro Heart Rate 2024-10-12 14:23:00 70.00 /min Yudelka en F Pietro Respiratory Rate 2024-10-12 14:23:00 20.00 /min Ben F Pietro BP Systolic 2024-08-23 14:48:00 178 mm[Hg] Step hen F Pietro BP Diastolic 2024-08-23 14:48:00 79 mm[Hg] Isaiah phen F Pietro Weight Measured 2024-08-23 14:48:00 166.20 pounds Ben F Pietro Height Measured 2024-08-23 14:48:00 62.00 inches Ben F Pietro Body Temperature 2024-08-23 14:48:00 97.40 degrees Ben F Pietro Heart Rate 2024-08-23 14:48:00 62.00 /min Yudelka en F Pietro Respiratory Rate 2024-08-23 14:48:00 24.00 /min Ben F Pietro BP Systolic 2024-08-04 15:44:00 144 mm[Hg] Step hen F Pietro BP Diastolic 2024-08-04 15:44:00 70 mm[Hg] Isaiah phen F Pietro Weight Measured 2024-08-04 15:44:00 166.00 pounds Ben F Pietro Height Measured 2024-08-04 15:44:00 62.00 inches Ben F Pietro Body Temperature 2024-08-04 15:44:00 98.30 degrees Ben F Pietro Heart Rate 2024-08-04 15:44:00 66.00 /min Yudelka en F Pietro Respiratory Rate 2024-08-04 15:44:00 Ben F Pietro BP Systolic 2024-07-17 14:59:00 180 mm[Hg] Step hen F Pietro BP Diastolic 2024-07-17 14:59:00 89 mm[Hg] Isaiah phen F Pietro Weight Measured 2024-07-17 14:59:00 168.30 pounds Ben F Pietro Height Measured 2024-07-17 14:59:00 62.00 inches Ben F Pietro Body Temperature 2024-07-17 14:59:00 98.00 degrees Ben F Pietro Heart Rate 2024-07-17 14:59:00 75.00 /min Yudelka en F Pietro Respiratory Rate 2024-07-17 14:59:00 Ben F Pietro BP Systolic 2024-05-04 15:17:00 174 mm[Hg] Step hen F Pietro BP Diastolic 2024-05-04 15:17:00 72 mm[Hg] Isaiah phen F Pietro Weight Measured 2024-05-04 15:17:00 167.60 pounds Ben F Pietro Height Measured 2024-05-04 15:17:00 62.00 inches Ben F Pietro Body Temperature 2024-05-04 15:17:00 97.50 degrees Ben F Pietro Heart Rate 2024-05-04 15:17:00 81.00 /min Yudelka en F Pietro Respiratory Rate 2024-05-04 15:17:00 16.00 /min Ben F Pietro BP Systolic 2024-05-04 15:07:00 174 mm[Hg] Step hen F Pietro BP Diastolic 2024-05-04 15:07:00 72 mm[Hg] Isaiah phen F Pietro Weight Measured 2024-05-04 15:07:00 167.60 pounds Ben F Pietro Height Measured 2024-05-04 15:07:00 62.00 inches Ben F Pietro Body Temperature 2024-05-04 15:07:00 97.50 degrees Ben F Pietro Heart Rate 2024-05-04 15:07:00 81.00 /min Yudelka en F Pietro Respiratory Rate 2024-05-04 15:07:00 16.00 /min Ben F Pietro BP Systolic 2024-04-03 10:24:00 153 mm[Hg] Step hen F Pietro BP Diastolic 2024-04-03 10:24:00 63 mm[Hg] Isaiah phen F Pietro Weight Measured 2024-04-03 10:24:00 166.80 pounds Ben F Pietro Height Measured 2024-04-03 10:24:00 62.00 inches Ben F Pietro Body Temperature 2024-04-03 10:24:00 98.20 degrees Ben F Pietro Heart Rate 2024-04-03 10:24:00 Yudelka en F Pietro Respiratory Rate 2024-04-03 10:24:00 16.00 /min Ben F Pietro BP Systolic 2024-02-15 16:13:00 152 mm[Hg] Step hen F Pietro BP Diastolic 2024-02-15 16:13:00 68 mm[Hg] Isaiah phen F Pietro Weight Measured 2024-02-15 16:13:00 167.20 pounds Ben F Pietro Height Measured 2024-02-15 16:13:00 62.00 inches Ben F Pietro Body Temperature 2024-02-15 16:13:00 97.80 degrees Ben F Pietro Heart Rate 2024-02-15 16:13:00 89.00 /min Yudelka en F Pietro Respiratory Rate 2024-02-15 16:13:00 Ben F Pietro BP Systolic 2024-01-03 11:02:00 133 mm[Hg] Step hen F Pietro BP Diastolic 2024-01-03 11:02:00 58 mm[Hg] Isaiah phen F Pietro Weight Measured 2024-01-03 11:02:00 166.20 pounds Ben F Pietro Height Measured 2024-01-03 11:02:00 62.00 inches Ben F Pietro Body Temperature 2024-01-03 11:02:00 97.00 degrees Ben F Pietro Heart Rate 2024-01-03 11:02:00 75.00 /min Yudelka en F Pietro Respiratory Rate 2024-01-03 11:02:00 17.00 /min Ben F Pietro BP Systolic 2023-11-08 17:03:00 175 mm[Hg] Step hen F Pietro BP Diastolic 2023-11-08 17:03:00 70 mm[Hg] Isaiah phen F Pietro Weight Measured 2023-11-08 17:03:00 165.00 pounds Ben F Pietro Height Measured 2023-11-08 17:03:00 62.00 inches Ben F Pietro Body Temperature 2023-11-08 17:03:00 98.00 degrees Ben F Pietro Heart Rate 2023-11-08 17:03:00 77.00 /min Yudelka en F Pietro Respiratory Rate 2023-11-08 17:03:00 17.00 /min Ben F Pietro BP Systolic 2023-11-05 10:42:00 123 mm[Hg] Step hen F Pietro BP Diastolic 2023-11-05 10:42:00 86 mm[Hg] Isaiah phen F Pietro Weight Measured 2023-11-05 10:42:00 165.80 pounds Ben F Pietro Height Measured 2023-11-05 10:42:00 62.00 inches Ben F Pietro Body Temperature 2023-11-05 10:42:00 97.70 degrees Ben F Pietro Heart Rate 2023-11-05 10:42:00 84.00 /min Yudelka en F Pietro Respiratory Rate 2023-11-05 10:42:00 16.00 /min Ben F Pitero BP Systolic 2023-10-14 14:31:00 148 mm[Hg] Step hen F Pietro BP Diastolic 2023-10-14 14:31:00 66 mm[Hg] Isaiah phen F Pietro Weight Measured 2023-10-14 14:31:00 165.40 pounds Ben F Pietro Height Measured 2023-10-14 14:31:00 62.00 inches Ben F Pietro Body Temperature 2023-10-14 14:31:00 98.10 degrees Ben F Pietro Heart Rate 2023-10-14 14:31:00 77.00 /min Yudelka en F Pietro Respiratory Rate 2023-10-14 14:31:00 18.00 /min Ben F Pietro BP Systolic 2023-09-10 15:10:00 155 mm[Hg] Step hen F Pietro BP Diastolic 2023-09-10 15:10:00 63 mm[Hg] Isaiah phen F Pietro Weight Measured 2023-09-10 15:10:00 161.00 pounds Ben F Pietro Height Measured 2023-09-10 15:10:00 62.00 inches Ben F Pietro Body Temperature 2023-09-10 15:10:00 97.70 degrees Ben F Pietro Heart Rate 2023-09-10 15:10:00 80.00 /min Yudelka en F Pietro Respiratory Rate 2023-09-10 15:10:00 22.00 /min Ben F Pietro BP Systolic 2023-07-22 13:39:00 141 mm[Hg] Step hen F Pietro BP Diastolic 2023-07-22 13:39:00 96 mm[Hg] Isaiah phen F Pietro Weight Measured 2023-07-22 13:39:00 163.80 pounds Ben F Pietro Height Measured 2023-07-22 13:39:00 62.00 inches Ben F Pietro Body Temperature 2023-07-22 13:39:00 97.60 degrees Ben F Pietro Heart Rate 2023-07-22 13:39:00 60.00 /min Yudelka en F Pietro Respiratory Rate 2023-07-22 13:39:00 16.00 /min Ben F Pietro BP Systolic 2023-07-02 16:41:00 184 mm[Hg] Step hen F Pietro BP Diastolic 2023-07-02 16:41:00 70 mm[Hg] Isaiah phen F Pietro Weight Measured 2023-07-02 16:41:00 168.20 pounds Ben F Pietro Height Measured 2023-07-02 16:41:00 62.00 inches Ben F Pietro Body Temperature 2023-07-02 16:41:00 98.60 degrees Ben F Pietro Heart Rate 2023-07-02 16:41:00 73.00 /min Yudelka en F Pietro Respiratory Rate 2023-07-02 16:41:00 Ben F Pietro BP Systolic 2023-06-23 14:38:00 140 mm[Hg] Step hen F Pietro BP Diastolic 2023-06-23 14:38:00 59 mm[Hg] Isaiah phen F Pietro Weight Measured 2023-06-23 14:38:00 165.60 pounds Ben F Pietro Height Measured 2023-06-23 14:38:00 62.00 inches Ben F Pietro Body Temperature 2023-06-23 14:38:00 98.00 degrees Ben F Pietro Heart Rate 2023-06-23 14:38:00 64.00 /min Yudelka en F Pietro Respiratory Rate 2023-06-23 14:38:00 Ben F Pietro BP Systolic 2023-06-09 17:17:00 189 mm[Hg] Step hen F Pietro BP Diastolic 2023-06-09 17:17:00 80 mm[Hg] Isaiah phen F Pietro Weight Measured 2023-06-09 17:17:00 167.60 pounds Ben F Pietro Height Measured 2023-06-09 17:17:00 62.00 inches Ben F Pietro Body Temperature 2023-06-09 17:17:00 97.40 degrees Ben F Pietro Heart Rate 2023-06-09 17:17:00 65.00 /min Yudelka en F Pietro Respiratory Rate 2023-06-09 17:17:00 Ben Sea Westbrook BP Systolic 2023-06-09 16:43:00 189 mm[Hg] Step hen F Pietro BP Diastolic 2023-06-09 16:43:00 80 mm[Hg] Isaiah phen Sea [place] Weight Measured 2023-06-09 16:43:00 167.60 pounds Ben Westbrook Height Measured 2023-06-09 16:43:00 62.00 inches Benjuancarlos Westbrook Body Temperature 2023-06-09 16:43:00 97.40 degrees Ben F Pietro Heart Rate 2023-06-09 16:43:00 65.00 /min Yudelka en F Pietro Respiratory Rate 2023-06-09 16:43:00 Benjuancarlos Westbrook BP Systolic 2023-05-18 16:51:00 159 mm[Hg] Step hen F Pietro BP Diastolic 2023-05-18 16:51:00 73 mm[Hg] Isaiah phen Sea Westbrook Weight Measured 2023-05-18 16:51:00 169.60 pounds Ben Westbrook Height Measured 2023-05-18 16:51:00 62.00 inches Ben Westbrook Body Temperature 2023-05-18 16:51:00 98.30 degrees Ben Sea Westbrook Heart Rate 2023-05-18 16:51:00 73.00 /min Yudelka en F Pietro Respiratory Rate 2023-05-18 16:51:00 18.00 /min Ben Westbrook Procedures Procedure Date / Time Performed Performing Clinicia n Source REFERRAL- REQUEST/RESPONSE 2024-01-03 20:10:45 Doctor Unassigned, [place] [facility] [address] Ekg W/ At Least 12 Leads W/ I r 2023-03-31 00:00:00 Ben Westbrook Encounters Start Date/Time End Date/Time Encounter Type Admission Type Attending Clinicians Care Facility Care Department Encounter ID Source 2022-11-17 14:45:02 Outpatient Nathan Inna [facility] [id number] [facility] 2022-09-07 15:16:00 Outpatient Nathan Inna [facility] [id number] [facility] 2022-04-17 10:00:00 Outpatient Dominguez, Na STLMLC STLML[facility] [id number] [facility] 2022-03-11 10:28:00 Outpatient Dominguez, Na STLMLC STLMLC [id number] [facility] 2021-12-10 11:36:00 Outpatient Dominguez, Na STLMLC STLMLC [id number] [facility] 2021-08-06 14:39:57 Outpatient Dominguez, Na STLMLC STLMLC [id number] [facility] 2021-08-06 14:38:53 Outpatient Dominguez, Na STLMLC STLMLC [id number] [facility] 2021-08-06 12:27:48 Outpatient Dominguez, Na STLMLC STLMLC [id number] [facility] 2021-08-06 12:24:44 Outpatient Dominguez, Na STLMLC STLMLC [id number] [facility] 2021-08-06 11:12:33 Outpatient Dominguez, Na STLMLC STLMLC [id number] [facility] 2021-08-06 11:02:14 Outpatient Angelica Na STLMLC STLMLC [id number] [facility] 2025-04-18 17:23:21 2025-04-18 17:23:21 Outpatient SFA [facility] [id number] Ben Westbrook 2025-04-18 00:00:00 2025-04-18 00:00:00 Outpatient Visit SFA [id number] Ben Westbrook 2025-04-12 15:12:37 2025-04-12 15:12:37 Outpatient SFA S[facility] [id number] Ben Westbrook 2025-04-12 00:00:00 2025-04-12 00:00:00 Outpatient Visit SFA [id number] Ben Westbrook 2025-02-26 11:31:35 2025-02-26 11:31:35 Outpatient SFA SFA [id number] Ben Westbrook 2025-02-19 15:08:28 2025-02-19 15:08:28 Outpatient SFA SFA [id number] Ben Westbrook 2025-02-19 00:00:00 2025-02-19 00:00:00 Outpatient Visit SFA [id number] Ben Westbrook 2025-01-24 10:50:13 2025-01-24 10:50:13 Outpatient SFA SFA [id number] Ben Westbrook 2025-01-24 00:00:00 2025-01-24 00:00:00 Outpatient Visit SFA [id number] Ben Westbrook 2025-01-19 17:45:28 2025-01-19 17:45:28 Outpatient SFA SFA [id number] Ben Westbrook 2025-01-19 00:00:00 2025-01-19 00:00:00 Outpatient Visit SFA [id number] Ben Westbrook 2025-01-16 13:58:53 2025-01-16 13:58:53 Outpatient SFA SFA [id number] Ben Westbrook 2025-01-16 00:00:00 2025-01-16 00:00:00 Outpatient Visit SFA [id number] Ben Westbrook 2025-01-04 10:48:56 2025-01-04 10:48:56 Outpatient SFA SFA [id number] Ben Westbrook 2025-01-04 00:00:00 2025-01-04 00:00:00 Outpatient Visit SFA [id number] Ben Westbrook 2025-01-01 15:58:54 2025-01-01 15:58:54 Outpatient SFA SFA [id number] Ben Westbrook 2025-01-01 00:00:00 2025-01-01 00:00:00 Outpatient Visit SFA [id number] Ben Westbrook 2024-12-27 16:03:38 2024-12-27 16:03:38 Outpatient SFA SFA [id number] Ben Westbrook 2024-12-27 00:00:00 2024-12-27 00:00:00 Outpatient Visit SFA [id number] Ben Westbrook 2024-11-09 13:08:24 2024-11-09 13:08:24 Outpatient SFA SFA [id number] Ben Westbrook 2024-11-09 00:00:00 2024-11-09 00:00:00 Outpatient Visit SFA [id number] Ben Westbrook 2024-10-12 14:14:39 2024-10-12 14:14:39 Outpatient SFA SFA [id number] Ben Westbrook 2024-10-12 00:00:00 2024-10-12 00:00:00 Outpatient Visit SFA [id number] Ben Westbrook 2024-10-11 10:53:04 2024-10-11 10:53:04 Outpatient SFA SFA [id number] Ben Westbrook 2024-09-06 00:00:00 2024-09-06 08:48:40 Letter (Out) Francisco Yanez [facility] [id number] [facility] 2024-01-03 00:00:00 2024-08-26 07:27:49 Orders Only Doctor Unassigned, [place] Doctor Unassigned, [place] [facility] [id number] [facility] 2024-08-23 14:41:11 2024-08-23 14:41:11 Outpatient SFA SFA [id number] Ben Westbrook 2024-08-23 00:00:00 2024-08-23 00:00:00 Outpatient Visit SFA SFA [id number] Ben Westbrook 2024-08-04 15:38:33 2024-08-04 15:38:33 Outpatient SFA SFA [id number] Ben Westbrook 2024-08-04 00:00:00 2024-08-04 00:00:00 Outpatient Visit SFA [id number] Ben Westbrook 2024-07-17 14:51:07 2024-07-17 14:51:07 Outpatient SFA SFA [id number] Ben Westbrook 2024-07-17 00:00:00 2024-07-17 00:00:00 Outpatient Visit SFA [id number] Ben Westbrook 2024-05-19 13:10:28 2024-05-19 13:10:28 Outpatient SFA SFA [id number] Ben Westbrook 2024-05-04 14:48:36 2024-05-04 14:48:36 Outpatient SFA SFA [id number] Ben Westbrook 2024-05-04 00:00:00 2024-05-04 00:00:00 Outpatient Visit SFA [id number] Ben Westbrook 2024-04-03 10:15:45 2024-04-03 10:15:45 Outpatient SFA SFA [id number] Ben Westbrook 2024-04-03 00:00:00 2024-04-03 00:00:00 Outpatient Visit SFA [id number] Ben Westbrook 2024-03-17 14:01:24 2024-03-17 14:01:24 Outpatient SFA SFA [id number] Ben Westbrook 2024-02-15 16:09:04 2024-02-15 16:09:04 Outpatient SFA SFA [id number] Ben Westbrook 2024-02-15 00:00:00 2024-02-15 00:00:00 Outpatient Visit SFA [id number] Ben Westbrook 2024-01-19 00:00:00 2024-01-19 15:07:46 Letter (Out) Stewart Cabrera [facility] [id number] [id number] [id number] [facility] 2024-01-03 11:01:23 2024-01-03 11:01:23 Outpatient SFA SFA [id number] Ben Westbrook 2024-01-03 00:00:00 2024-01-03 00:00:00 Outpatient Visit SFA [id number] Ben Westbrook 2023-11-08 17:00:17 2023-11-08 17:00:17 Outpatient SFA SFA [id number] Ben Westbrook 2023-11-08 00:00:00 2023-11-08 00:00:00 Outpatient Visit SFA [id number] Ben Westbrook 2023-11-05 10:32:08 2023-11-05 10:32:08 Outpatient SFA SFA [id number] Ben Westbrook 2023-10-14 14:25:20 2023-10-14 14:25:20 Outpatient SFA SFA [id number] Ben Westbrook 2023-09-10 14:43:02 2023-09-10 14:43:02 Outpatient SFA SFA [id number] Ben Westbrook 2023-08-25 00:00:00 2023-08-25 00:00:00 (TEL) STLC STLC [id number] [facility] 2023-08-13 14:31:42 2023-08-13 14:31:42 Outpatient SFA SFA [id number] Ben Westbrook 2023-07-22 13:24:58 2023-07-22 13:24:58 Outpatient SFA SFA [id number] Ben Westbrook 2023-07-02 15:53:28 2023-07-02 15:53:28 Outpatient SFA SFA [id number] Ben Westbrook 2023-06-23 14:29:21 2023-06-23 14:29:21 Outpatient SFA SFA [id number] Ben Westbrook 2023-06-09 16:21:14 2023-06-09 16:21:14 Outpatient SFA SFA [id number] Ben Westbrook 2023-05-18 16:41:58 2023-05-18 16:41:58 Outpatient SFA SFA [id number] Ben Westbrook 2023-03-31 15:27:58 2023-03-31 15:27:58 Outpatient SFA SFA [id number] Ben Westbrook 2023-03-22 14:52:12 2023-03-22 14:52:12 Outpatient SFA SFA [id number] Ben Westbroko 2023-03-18 15:28:41 2023-03-18 15:28:41 Outpatient SFA SFA [id number] Ben Westbrook 2023-03-17 00:00:00 2023-03-17 00:00:00 (TEL) STLMLC STLMLC [id number] [facility] 2023-03-01 00:00:00 2023-03-01 00:00:00 OFFICE VISIT ESTAB PT LEVEL 4 STLMLC STLMLC [id number] [facility] 2023-02-26 00:00:00 2023-02-26 00:00:00 (TEL) STLMLC STLMLC [id number] [facility] 2023-02-24 00:00:00 2023-02-24 00:00:00 (TEL) STLMLC STLMLC [id number] [facility] 2023-02-23 00:00:00 2023-02-23 00:00:00 (TEL) STLMLC STLMLC [id number] [facility] 2023-02-09 00:00:00 2023-02-09 00:00:00 (TEL) STLMLC STLMLC [id number] [facility] 2023-01-22 00:00:00 2023-01-22 00:00:00 OFFICE VISIT ESTAB PT LEVEL 4 STLMLC STLMLC [id number] [facility] 2023-01-22 00:00:00 2023-01-22 00:00:00 SUB ANNUAL [facility] VISIT STLMLC STLMLC [id number] [facility] 2023-01-22 00:00:00 2023-01-22 00:00:00 (TEL) STLMLC STLMLC [id number] [facility] 2022-12-10 00:00:00 2022-12-10 00:00:00 (TEL) STLMLC STLMLC [id number] [facility] 2022-11-30 00:00:00 2022-11-30 00:00:00 (TEL) STLMLC STLMLC [id number] [facility] 2022-11-17 00:00:00 2022-11-17 00:00:00 OFFICE VISIT ESTAB PT LEVEL 5 STLMLC STLMLC [id number] [facility] 2022-09-07 00:00:00 2022-09-07 00:00:00 (TEL) STLMLC STLMLC [id number] [facility] 2022-07-27 00:00:00 2022-07-27 00:00:00 (TEL) STLMLC STLMLC [id number] [facility] 2022-07-13 00:00:00 2022-07-13 00:00:00 (TEL) STLMLC STLMLC [id number] [facility] 2022-07-07 00:00:00 2022-07-07 00:00:00 (TEL) STLMLC STLMLC [id number] [facility] 2022-06-15 00:00:00 2022-06-15 00:00:00 (TEL) STLMLC STLMLC [id number] [facility] 2022-04-21 00:00:00 2022-04-21 00:00:00 OL DIG E/M SVC 21+ MIN STLMLC STLMLC [id number] [facility] 2022-04-13 00:00:00 2022-04-13 00:00:00 (TEL) STLMLC STLMLC [id number] [facility] 2022-01-13 00:00:00 2022-01-13 00:00:00 (TEL) STLMLC STLMLC [id number] [facility] 2022-01-09 00:00:00 2022-01-09 00:00:00 (TEL) STLMLC STLMLC [id number] [facility] 2021-12-11 00:00:00 2021-12-11 00:00:00 OFFICE VISIT ESTAB PT LEVEL 4 STLMLC STLMLC [id number] [facility] 2021-11-21 00:00:00 2021-11-21 00:00:00 (TEL) STLMLC STLMLC [id number] [facility] 2021-08-05 00:00:00 2021-08-05 00:00:00 OFFICE VISIT EST PT LEVEL 3 STLMLC STLMLC [id number] [facility] 2021-07-21 00:00:00 2021-07-21 00:00:00 OL DIG E/M SVC 11-20 MIN STLMLC STLMLC [id number] [facility] 2021-07-21 00:00:00 2021-07-21 00:00:00 (TEL) STLMLC STLMLC [id number] [facility] 2021-06-03 00:00:00 2021-06-03 00:00:00 OL DIG E/M SVC 11-20 MIN STLMLC STLMLC [id number] [facility] 2021-06-02 00:00:00 2021-06-02 00:00:00 (TEL) STLMLC STLMLC [id number] [facility] 2021-04-01 00:00:00 2021-04-01 00:00:00 Outpatient STLMLC STLMLC [id number] [facility] 2021-03-13 00:00:00 2021-03-13 00:00:00 Outpatient STLMLC STLMLC [id number] [facility] 2021-02-12 00:00:00 2021-02-12 00:00:00 Outpatient STLMLC STLMLC [id number] [facility] 2021-01-02 00:00:00 2021-01-02 00:00:00 Outpatient STLMLC STLMLC [id number] [facility] 2021-01-02 00:00:00 2021-01-02 00:00:00 Outpatient STLMLC STLMLC [id number] [facility] 2020-08-14 00:00:00 2020-08-14 00:00:00 Outpatient STLMLC STLMLC [id number] [facility] 2020-08-05 00:00:00 2020-08-05 00:00:00 Outpatient STLMLC STLMLC [id number] [facility] 2020-05-17 00:00:00 2020-05-17 00:00:00 Outpatient STLMLC STLMLC [id number] [facility] 2020-03-11 14:40:00 2020-03-11 14:40:00 [facility] [id number] [facility] 2019-08-01 14:40:00 2019-08-01 14:40:00 [facility] [id number] [facility] 2019-06-05 16:00:00 2019-06-05 16:00:00 [facility] [id number] [facility] 2019-05-02 12:46:00 2019-05-02 12:46:00 [facility] [id number] [facility] 2019-03-03 14:40:00 2019-03-03 14:40:00 [facility] [id number] [facility] 2019-02-17 17:09:00 2019-02-17 17:09:00 [facility] [id number] [facility] 2018-10-31 13:40:00 2018-10-31 13:40:00 [facility] [id number] [facility] 2018-08-10 13:58:00 2018-08-10 13:58:00 [facility] [id number] [facility] 2018-08-01 15:15:00 2018-08-01 15:15:00 [facility] [id number] [facility] 2018-06-10 10:24:00 2018-06-10 10:24:00 [facility] [id number] [facility] 2018-05-31 09:30:00 2018-05-31 09:30:00 [facility] [id number] [facility] 2018-03-08 15:01:00 2018-03-08 15:01:00 [facility] [id number] [facility] 2018-01-25 11:15:00 2018-01-25 11:15:00 [facility] [id number] [facility] 2018-01-19 14:45:00 2018-01-19 14:45:00 [facility] [id number] [facility] 2017-12-03 09:47:00 2017-12-03 09:47:00 [facility] [id number] [facility] 2017-11-30 08:38:00 2017-11-30 08:38:00 [facility] [id number] [facility] 2017-11-12 15:25:00 2017-11-12 15:25:00 [facility] [id number] [facility] 2017-10-28 14:45:00 2017-10-28 14:45:00 [facility] [id number] [facility] Results Test Description Test Time Test Comments Results Result Co mments Source Ben Osei AustinVITAMIN [id number] 00:00:00* Test Item Value Reference Range Interpretation Comme nts VITAMIN B12 (test code = 2132-9) 1028 pg/mL Ben Osei AustinVITAMIN [id number] 00:00:00* Test Item Value Reference Range Interpretation Comme nts VITAMIN B12 (test code = 2132-9) 1028 pg/mL Ben Osei PietroCBC (INCLUDES DIFF/PLT)2025-01-05 00:00:00* Test Item Value Reference Range Interpretation Comme nts WHITE BLOOD CELL COUNT (test code = 6690-2) 12.6 Thousand/uL RED BLOOD CELL COUNT (test code = 789-8) 5.83 Million/uL HEMOGLOBIN (test code = 718-7) 18.0 g/dL HEMATOCRIT (test code = 4544-3) 54.7 % MCV (test code = 787-2) 93.8 fL MCH (test code = 785-6) 30.9 pg MCHC (test code = 786-4) 32.9 g/dL RDW (test code = 788-0) 14.8 % PLATELET COUNT (test code = 777-3) 361 Thousand/uL MPV (test code = 776-5) 9.6 fL ABSOLUTE NEUTROPHILS (test code = 751-8) 7812 cells/uL ABSOLUTE BAND NEUTROPHILS (test code = 21509-6) DNR cells/uL ABSOLUTE METAMYELOCYTES (test code = 92879-5) DNR cells/uL ABSOLUTE MYELOCYTES (test code = 40378-9) DNR cells/uL ABSOLUTE PROMYELOCYTES (test code = 43671-5) DNR cells/uL ABSOLUTE LYMPHOCYTES (test code = 731-0) 3805 cells/uL ABSOLUTE MONOCYTES (test code = 742-7) 781 cells/uL ABSOLUTE EOSINOPHILS (test code = 711-2) 151 cells/uL ABSOLUTE BASOPHILS (test code = 704-7) 50 cells/uL ABSOLUTE BLASTS (test code = 30210-4) DNR cells/uL ABSOLUTE NUCLEATED RBC (test code = 94404-2) DNR cells/uL NEUTROPHILS (test code = 770-8) 62 % BAND NEUTROPHILS (test code = 764-1) DNR % METAMYELOCYTES (test code = 740-1) DNR % MYELOCYTES (test code = 749-2) DNR % PROMYELOCYTES (test code = 783-1) DNR % LYMPHOCYTES (test code = 736-9) 30.2 % REACTIVE LYMPHOCYTES (test code = 96809-0) DNR % MONOCYTES (test code = 5905-5) 6.2 % EOSINOPHILS (test code = 713-8) 1.2 % BASOPHILS (test code = 706-2) 0.4 % BLASTS (test code = 709-6) DNR % NUCLEATED RBC (test code = 54198-5) DNR /100WBC COMMENT(S) (test code = 8251-1) DNR Ben WestbrookCOMPREHENSIVE METABOLIC [id number] 00:00:00* Test Item Value Reference Range Interpretation Comme nts GLUCOSE (test code = 2345-7) 127 mg/dL UREA NITROGEN (BUN) (test code = 3094-0) 19 mg/dL CREATININE (test code = 2160-0) 0.95 mg/dL EGFR (test code = 62771-1) 63 mL/min/1.73m2 BUN/CREATININE RATIO (test code = 3097-3) SEE NOTE: (calc) SODIUM (test code = 2951-2) 139 mmol/L POTASSIUM (test code = 2823-3) 5.0 mmol/L CHLORIDE (test code = 2075-0) 97 mmol/L CARBON DIOXIDE (test code = 2027-9) 28 mmol/L CALCIUM (test code = 88862-1) 9.5 mg/dL PROTEIN, TOTAL (test code = 2885-2) 6.5 g/dL ALBUMIN (test code = 1751-7) 4.1 g/dL GLOBULIN (test code = 60906-3) 2.4 g/dL(calc) ALBUMIN/GLOBULIN RATIO (test code = 1759-0) 1.7 (calc) BILIRUBIN, TOTAL (test code = 1975-2) 0.6 mg/dL ALKALINE PHOSPHATASE (test code = 6768-6) 105 U/L AST (test code = 1920-8) 12 U/L ALT (test code = 1742-6) 11 U/L Ben WestbrookCBC (INCLUDES DIFF/PLT)2025-01-05 00:00:00* Test Item Value Reference Range Interpretation Comme nts WHITE BLOOD CELL COUNT (test code = 6690-2) 12.6 Thousand/uL RED BLOOD CELL COUNT (test code = 789-8) 5.83 Million/uL HEMOGLOBIN (test code = 718-7) 18.0 g/dL HEMATOCRIT (test code = 4544-3) 54.7 % MCV (test code = 787-2) 93.8 fL MCH (test code = 785-6) 30.9 pg MCHC (test code = 786-4) 32.9 g/dL RDW (test code = 788-0) 14.8 % PLATELET COUNT (test code = 777-3) 361 Thousand/uL MPV (test code = 776-5) 9.6 fL ABSOLUTE NEUTROPHILS (test code = 751-8) 7812 cells/uL ABSOLUTE BAND NEUTROPHILS (test code = 85032-6) DNR cells/uL ABSOLUTE METAMYELOCYTES (test code = 71696-4) DNR cells/uL ABSOLUTE MYELOCYTES (test code = 26285-3) DNR cells/uL ABSOLUTE PROMYELOCYTES (test code = 28862-6) DNR cells/uL ABSOLUTE LYMPHOCYTES (test code = 731-0) 3805 cells/uL ABSOLUTE MONOCYTES (test code = 742-7) 781 cells/uL ABSOLUTE EOSINOPHILS (test code = 711-2) 151 cells/uL ABSOLUTE BASOPHILS (test code = 704-7) 50 cells/uL ABSOLUTE BLASTS (test code = 16137-6) DNR cells/uL ABSOLUTE NUCLEATED RBC (test code = 22383-7) DNR cells/uL NEUTROPHILS (test code = 770-8) 62 % BAND NEUTROPHILS (test code = 764-1) DNR % METAMYELOCYTES (test code = 740-1) DNR % MYELOCYTES (test code = 749-2) DNR % PROMYELOCYTES (test code = 783-1) DNR % LYMPHOCYTES (test code = 736-9) 30.2 % REACTIVE LYMPHOCYTES (test code = 88017-3) DNR % MONOCYTES (test code = 5905-5) 6.2 % EOSINOPHILS (test code = 713-8) 1.2 % BASOPHILS (test code = 706-2) 0.4 % BLASTS (test code = 709-6) DNR % NUCLEATED RBC (test code = 76832-3) DNR /100WBC COMMENT(S) (test code = 8251-1) DNR Ben F PietroCOMPREHENSIVE METABOLIC [id number] 00:00:00* Test Item Value Reference Range Interpretation Comme nts GLUCOSE (test code = 2345-7) 127 mg/dL UREA NITROGEN (BUN) (test code = 3094-0) 19 mg/dL CREATININE (test code = 2160-0) 0.95 mg/dL EGFR (test code = 15781-0) 63 mL/min/1.73m2 BUN/CREATININE RATIO (test code = 3097-3) SEE NOTE: (calc) SODIUM (test code = 2951-2) 139 mmol/L POTASSIUM (test code = 2823-3) 5.0 mmol/L CHLORIDE (test code = 2075-0) 97 mmol/L CARBON DIOXIDE (test code = 2027-9) 28 mmol/L CALCIUM (test code = 83645-9) 9.5 mg/dL PROTEIN, TOTAL (test code = 2885-2) 6.5 g/dL ALBUMIN (test code = 1751-7) 4.1 g/dL GLOBULIN (test code = 80028-2) 2.4 g/dL(calc) ALBUMIN/GLOBULIN RATIO (test code = 1759-0) 1.7 (calc) BILIRUBIN, TOTAL (test code = 1975-2) 0.6 mg/dL ALKALINE PHOSPHATASE (test code = 6768-6) 105 U/L AST (test code = 1920-8) 12 U/L ALT (test code = 1742-6) 11 U[facility]CLUD[facility]FF/[facility]2025-01-05 00:00:00* Test Item Value Reference Range Interpretation Comme nts WHITE BLOOD CELL COUNT (test code = 6690-2) 12.6 Thousand/uL RED BLOOD CELL COUNT (test code = 789-8) 5.83 Million/uL HEMOGLOBIN (test code = 718-7) 18.0 g/dL HEMATOCRIT (test code = 4544-3) 54.7 % MCV (test code = 787-2) 93.8 fL MCH (test code = 785-6) 30.9 pg MCHC (test code = 786-4) 32.9 g/dL RDW (test code = 788-0) 14.8 % PLATELET COUNT (test code = 777-3) 361 Thousand/uL MPV (test code = 776-5) 9.6 fL ABSOLUTE NEUTROPHILS (test code = 751-8) 7812 cells/uL ABSOLUTE BAND NEUTROPHILS (test code = 58814-1) DNR cells/uL ABSOLUTE METAMYELOCYTES (test code = 51807-7) DNR cells/uL ABSOLUTE MYELOCYTES (test code = 92601-8) DNR cells/uL ABSOLUTE PROMYELOCYTES (test code = 10013-8) DNR cells/uL ABSOLUTE LYMPHOCYTES (test code = 731-0) 3805 cells/uL ABSOLUTE MONOCYTES (test code = 742-7) 781 cells/uL ABSOLUTE EOSINOPHILS (test code = 711-2) 151 cells/uL ABSOLUTE BASOPHILS (test code = 704-7) 50 cells/uL ABSOLUTE BLASTS (test code = 05820-0) DNR cells/uL ABSOLUTE NUCLEATED RBC (test code = 79301-0) DNR cells/uL NEUTROPHILS (test code = 770-8) 62 % BAND NEUTROPHILS (test code = 764-1) DNR % METAMYELOCYTES (test code = 740-1) DNR % MYELOCYTES (test code = 749-2) DNR % PROMYELOCYTES (test code = 783-1) DNR % LYMPHOCYTES (test code = 736-9) 30.2 % REACTIVE LYMPHOCYTES (test code = 16007-4) DNR % MONOCYTES (test code = 5905-5) 6.2 % EOSINOPHILS (test code = 713-8) 1.2 % BASOPHILS (test code = 706-2) 0.4 % BLASTS (test code = 709-6) DNR % NUCLEATED RBC (test code = 52269-0) DNR /100WBC COMMENT(S) (test code = 8251-1) DNR Ben Sea PietroCOMPREHENSIVE METABOLIC [id number] 00:00:00* Test Item Value Reference Range Interpretation Comme nts GLUCOSE (test code = 2345-7) 127 mg/dL UREA NITROGEN (BUN) (test code = 3094-0) 19 mg/dL CREATININE (test code = 2160-0) 0.95 mg/dL EGFR (test code = 65163-1) 63 mL/min/1.73m2 BUN/CREATININE RATIO (test code = 3097-3) SEE NOTE: (calc) SODIUM (test code = 2951-2) 139 mmol/L POTASSIUM (test code = 2823-3) 5.0 mmol/L CHLORIDE (test code = 2075-0) 97 mmol/L CARBON DIOXIDE (test code = 2028-9) 28 mmol/L CALCIUM (test code = 50812-6) 9.5 mg/dL PROTEIN, TOTAL (test code = 2885-2) 6.5 g/dL ALBUMIN (test code = 1751-7) 4.1 g/dL GLOBULIN (test code = 06728-6) 2.4 g/dL(calc) ALBUMIN/GLOBULIN RATIO (test code = 1759-0) 1.7 (calc) BILIRUBIN, TOTAL (test code = 1975-2) 0.6 mg/dL ALKALINE PHOSPHATASE (test code = 6768-6) 105 U/L AST (test code = 1920-8) 12 U/L ALT (test code = 1742-6) 11 U/L Ben WestbrookC (INCLUDES DIFF/PLT)2025-01-05 00:00:00* Test Item Value Reference Range Interpretation Comme nts WHITE BLOOD CELL COUNT (test code = 6690-2) 12.6 Thousand/uL RED BLOOD CELL COUNT (test code = 789-8) 5.83 Million/uL HEMOGLOBIN (test code = 718-7) 18.0 g/dL HEMATOCRIT (test code = 4544-3) 54.7 % MCV (test code = 787-2) 93.8 fL MCH (test code = 785-6) 30.9 pg MCHC (test code = 786-4) 32.9 g/dL RDW (test code = 788-0) 14.8 % PLATELET COUNT (test code = 777-3) 361 Thousand/uL MPV (test code = 776-5) 9.6 fL ABSOLUTE NEUTROPHILS (test code = 751-8) 7812 cells/uL ABSOLUTE BAND NEUTROPHILS (test code = 55160-6) DNR cells/uL ABSOLUTE METAMYELOCYTES (test code = 96062-0) DNR cells/uL ABSOLUTE MYELOCYTES (test code = 48163-9) DNR cells/uL ABSOLUTE PROMYELOCYTES (test code = 26817-8) DNR cells/uL ABSOLUTE LYMPHOCYTES (test code = 731-0) 3805 cells/uL ABSOLUTE MONOCYTES (test code = 742-7) 781 cells/uL ABSOLUTE EOSINOPHILS (test code = 711-2) 151 cells/uL ABSOLUTE BASOPHILS (test code = 704-7) 50 cells/uL ABSOLUTE BLASTS (test code = 62231-7) DNR cells/uL ABSOLUTE NUCLEATED RBC (test code = 74731-0) DNR cells/uL NEUTROPHILS (test code = 770-8) 62 % BAND NEUTROPHILS (test code = 764-1) DNR % METAMYELOCYTES (test code = 740-1) DNR % MYELOCYTES (test code = 749-2) DNR % PROMYELOCYTES (test code = 783-1) DNR % LYMPHOCYTES (test code = 736-9) 30.2 % REACTIVE LYMPHOCYTES (test code = 06536-0) DNR % MONOCYTES (test code = 5905-5) 6.2 % EOSINOPHILS (test code = 713-8) 1.2 % BASOPHILS (test code = 706-2) 0.4 % BLASTS (test code = 709-6) DNR % NUCLEATED RBC (test code = 95562-7) DNR /100WBC COMMENT(S) (test code = 8251-1) DNR Ben WestbrookCOMPREHENSIVE METABOLIC [id number] 00:00:00* Test Item Value Reference Range Interpretation Comme nts GLUCOSE (test code = 2345-7) 127 mg/dL UREA NITROGEN (BUN) (test code = 3094-0) 19 mg/dL CREATININE (test code = 2160-0) 0.95 mg/dL EGFR (test code = 40694-1) 63 mL/min/1.73m2 BUN/CREATININE RATIO (test code = 3097-3) SEE NOTE: (calc) SODIUM (test code = 2951-2) 139 mmol/L POTASSIUM (test code = 2823-3) 5.0 mmol/L CHLORIDE (test code = 2075-0) 97 mmol/L CARBON DIOXIDE (test code = 8-9) 28 mmol/L CALCIUM (test code = 87741-0) 9.5 mg/dL PROTEIN, TOTAL (test code = 2885-2) 6.5 g/dL ALBUMIN (test code = 1751-7) 4.1 g/dL GLOBULIN (test code = 00245-4) 2.4 g/dL(calc) ALBUMIN/GLOBULIN RATIO (test code = 1759-0) 1.7 (calc) BILIRUBIN, TOTAL (test code = 1975-2) 0.6 mg/dL ALKALINE PHOSPHATASE (test code = 6768-6) 105 U/L AST (test code = 1920-8) 12 U/L ALT (test code = 1742-6) 11 U/L Ben WestbrookCBC (INCLUDES DIFF/PLT)2025-01-05 00:00:00* Test Item Value Reference Range Interpretation Comme nts WHITE BLOOD CELL COUNT (test code = 6690-2) 12.6 Thousand/uL RED BLOOD CELL COUNT (test code = 789-8) 5.83 Million/uL HEMOGLOBIN (test code = 718-7) 18.0 g/dL HEMATOCRIT (test code = 4544-3) 54.7 % MCV (test code = 787-2) 93.8 fL MCH (test code = 785-6) 30.9 pg MCHC (test code = 786-4) 32.9 g/dL RDW (test code = 788-0) 14.8 % PLATELET COUNT (test code = 777-3) 361 Thousand/uL MPV (test code = 776-5) 9.6 fL ABSOLUTE NEUTROPHILS (test code = 751-8) 7812 cells/uL ABSOLUTE BAND NEUTROPHILS (test code = 82219-0) DNR cells/uL ABSOLUTE METAMYELOCYTES (test code = 56567-8) DNR cells/uL ABSOLUTE MYELOCYTES (test code = 11248-9) DNR cells/uL ABSOLUTE PROMYELOCYTES (test code = 85124-2) DNR cells/uL ABSOLUTE LYMPHOCYTES (test code = 731-0) 3805 cells/uL ABSOLUTE MONOCYTES (test code = 742-7) 781 cells/uL ABSOLUTE EOSINOPHILS (test code = 711-2) 151 cells/uL ABSOLUTE BASOPHILS (test code = 704-7) 50 cells/uL ABSOLUTE BLASTS (test code = 70163-4) DNR cells/uL ABSOLUTE NUCLEATED RBC (test code = 61826-7) DNR cells/uL NEUTROPHILS (test code = 770-8) 62 % BAND NEUTROPHILS (test code = 764-1) DNR % METAMYELOCYTES (test code = 740-1) DNR % MYELOCYTES (test code = 749-2) DNR % PROMYELOCYTES (test code = 783-1) DNR % LYMPHOCYTES (test code = 736-9) 30.2 % REACTIVE LYMPHOCYTES (test code = 70435-6) DNR % MONOCYTES (test code = 5905-5) 6.2 % EOSINOPHILS (test code = 713-8) 1.2 % BASOPHILS (test code = 706-2) 0.4 % BLASTS (test code = 709-6) DNR % NUCLEATED RBC (test code = 01656-1) DNR /100WBC COMMENT(S) (test code = 8251-1) DNR Ben WestbrookCOMPREHENSIVE METABOLIC [id number] 00:00:00* Test Item Value Reference Range Interpretation Comme nts GLUCOSE (test code = 2345-7) 127 mg/dL UREA NITROGEN (BUN) (test code = 3094-0) 19 mg/dL CREATININE (test code = 2160-0) 0.95 mg/dL EGFR (test code = 63087-9) 63 mL/min/1.73m2 BUN/CREATININE RATIO (test code = 3097-3) SEE NOTE: (calc) SODIUM (test code = 2951-2) 139 mmol/L POTASSIUM (test code = 2823-3) 5.0 mmol/L CHLORIDE (test code = 2075-0) 97 mmol/L CARBON DIOXIDE (test code = 2027-) 28 mmol/L CALCIUM (test code = 72741-9) 9.5 mg/dL PROTEIN, TOTAL (test code = 2885-2) 6.5 g/dL ALBUMIN (test code = 1751-7) 4.1 g/dL GLOBULIN (test code = 54334-6) 2.4 g/dL(calc) ALBUMIN/GLOBULIN RATIO (test code = 1759-0) 1.7 (calc) BILIRUBIN, TOTAL (test code = 1975-2) 0.6 mg/dL ALKALINE PHOSPHATASE (test code = 6768-6) 105 U/L AST (test code = 1920-8) 12 U/L ALT (test code = 1742-6) 11 U/L Ben WestbrookCBC (INCLUDES DIFF/PLT)2025-01-05 00:00:00* Test Item Value Reference Range Interpretation Comme nts WHITE BLOOD CELL COUNT (test code = 6690-2) 12.6 Thousand/uL RED BLOOD CELL COUNT (test code = 789-8) 5.83 Million/uL HEMOGLOBIN (test code = 718-7) 18.0 g/dL HEMATOCRIT (test code = 4544-3) 54.7 % MCV (test code = 787-2) 93.8 fL MCH (test code = 785-6) 30.9 pg MCHC (test code = 786-4) 32.9 g/dL RDW (test code = 788-0) 14.8 % PLATELET COUNT (test code = 777-3) 361 Thousand/uL MPV (test code = 776-5) 9.6 fL ABSOLUTE NEUTROPHILS (test code = 751-8) 7812 cells/uL ABSOLUTE BAND NEUTROPHILS (test code = 50063-8) DNR cells/uL ABSOLUTE METAMYELOCYTES (test code = 06025-3) DNR cells/uL ABSOLUTE MYELOCYTES (test code = 90725-2) DNR cells/uL ABSOLUTE PROMYELOCYTES (test code = 51811-4) DNR cells/uL ABSOLUTE LYMPHOCYTES (test code = 731-0) 3805 cells/uL ABSOLUTE MONOCYTES (test code = 742-7) 781 cells/uL ABSOLUTE EOSINOPHILS (test code = 711-2) 151 cells/uL ABSOLUTE BASOPHILS (test code = 704-7) 50 cells/uL ABSOLUTE BLASTS (test code = 92006-3) DNR cells/uL ABSOLUTE NUCLEATED RBC (test code = 17093-7) DNR cells/uL NEUTROPHILS (test code = 770-8) 62 % BAND NEUTROPHILS (test code = 764-1) DNR % METAMYELOCYTES (test code = 740-1) DNR % MYELOCYTES (test code = 749-2) DNR % PROMYELOCYTES (test code = 783-1) DNR % LYMPHOCYTES (test code = 736-9) 30.2 % REACTIVE LYMPHOCYTES (test code = 29572-3) DNR % MONOCYTES (test code = 5905-5) 6.2 % EOSINOPHILS (test code = 713-8) 1.2 % BASOPHILS (test code = 706-2) 0.4 % BLASTS (test code = 709-6) DNR % NUCLEATED RBC (test code = 08248-1) DNR /100WBC COMMENT(S) (test code = 8251-1) DNR Ben WestbrookCOMPREHENSIVE METABOLIC [id number] 00:00:00* Test Item Value Reference Range Interpretation Comme nts GLUCOSE (test code = 2345-7) 127 mg/dL UREA NITROGEN (BUN) (test code = 3094-0) 19 mg/dL CREATININE (test code = 2160-0) 0.95 mg/dL EGFR (test code = 27426-5) 63 mL/min/1.73m2 BUN/CREATININE RATIO (test code = 3097-3) SEE NOTE: (calc) SODIUM (test code = 2951-2) 139 mmol/L POTASSIUM (test code = 2823-3) 5.0 mmol/L CHLORIDE (test code = 2075-0) 97 mmol/L CARBON DIOXIDE (test code = 2027-9) 28 mmol/L CALCIUM (test code = 28223-0) 9.5 mg/dL PROTEIN, TOTAL (test code = 2885-2) 6.5 g/dL ALBUMIN (test code = 1751-7) 4.1 g/dL GLOBULIN (test code = 22875-5) 2.4 g/dL(calc) ALBUMIN/GLOBULIN RATIO (test code = 1759-0) 1.7 (calc) BILIRUBIN, TOTAL (test code = 1975-2) 0.6 mg/dL ALKALINE PHOSPHATASE (test code = 6768-6) 105 U/L AST (test code = 1920-8) 12 U/L ALT (test code = 1742-6) 11 U/L Ben WestbrookXmhyqkEW-[id number] 20:11:17* Test Item Value Reference Range Interpretation Comme nts NT-proBNP (test code = 19977) 1007 PG/ML SEE BELOW H If NT-ProBNP is less than 300 PG/ML, heart failure is unlikely for allages. Age.................Heart Failure Likely <50 Years...........>=450 PG/ML 50-75 Years.........>=900 PG/ML > 75 Years..........>=1800 PG/ML Methodology: Joe Nikita Electrochemiluminescense Immunoassay UNLESS OTHERWISE INDICATED, ALL TESTING PERFORMED AT [facility] [address] [place] [id number] [employer]UFA[employer]URING PROJECT ENGINEER: JOHNATHON BARFIELD M.D. CLIA NUMBER [id number] [place] [id number] CULTURE, [id number] 13:38:16SPECIMEN NUMBER: [id number] CULTURE, URINE SPECIMEN NUMBER: [id number] SOURCE: URINE REPORT STATUS: FINAL FINAL REPORT: 07/19/2024 >100,000 CFU/ML UROGENITAL ROSEMARIE PRESENT NO COMMON PATHOGENS UNLESS OTHERWISE INDICATED, ALL TESTING PERFORMED AT [facility] [address] [place] [id number] MANUFACTURING PROJECT ENGINEER: JOHNATHON BARFIELD M.D. CLIA NUMBER [id number] [facility] [place]. [id number] [id number] 04:23:17* Test Item Value Reference Range Interpretation Comme nts HEMOGLOBIN A1c (test code = 68113) 5.9 % 4.2-5.6 H [employer] GUIDELINES FOR HGB A1C: PREDIABETES/INCREASED RISK . . . . . . . 5.7-6.4% DIAGNOSIS OF DIABETES . . . . . . . . . >=6.5% WITH CONFIRMATION OR APPROPRIATE SYMPTOMS NOTE: ASSAY MAY BE AFFECTED BY HEMOGLOBINOPATHIES (SICKLE CELL ANEMIA, S-C DISEASE, OTHERS) OR ARTIFICIALLY LOWERED BY DECREASED RED CELL SURVIVAL (HEMOLYTIC ANEMIAS, BLOOD LOSS, ETC.). CONSIDER ALTERNATE TESTING OR LABORATORY CONSULTATION. LIPID [id number] 03:45:02* Test Item Value Reference Range Interpretation Comme nts CHOLESTEROL (test code = 2210) 326 MG/DL <200 H TRIGLYCERIDES (test code = 2232) 419 MG/DL <150 H HDL CHOLESTEROL (test code = 2220) 32 MG/DL >39 L CALC LDL CHOL (test code = 2237) (NOTE) MG/DL <100 UNABLE TO CALCUL ATE A VALID LDL CHOLESTEROL WHEN THE TRIGLYCERIDEVALUE IS GREATER THAN 400 MG/DL.UNABLE TO CALCULATE A VALID LDL CHOLESTEROL WHEN THE TRIGLYCERIDEVALUE IS GREATER THAN 400 MG/DL. NOTE: CALCULATED LDL IS BASED ON SUN-MENCHACA METHOD WHICHINCLUDES ADJUSTABLE TRIGLYCERIDE:VLDL CHOLESTEROL RATIO.THIS FACTOR VARIES BY MEASURED TRIGLYCERIDE AND NON-HDLCHOLESTEROL CONCENTRATIONS WITH INCREASED CALCULATED LDL SEENIN HIGHER TRIGLYCERIDE OR LOWER NON-HDL SPECIMENS. FOR MOREINFORMATION, SEE CLIENT ANNOUNCEMENT AT [email or web address] CalcLDL-C RISK RATIO LDL/HDL (test code = 2238) (NOTE) RATIO <3.22 UNABLE TO ALEJANDRO CULATE COMPREHENSIVE METABOLIC [id number] 03:45:02* Test Item Value Reference Range Interpretation Comme nts GLUCOSE (test code = 2217) 113 MG/DL 70-99 H BUN (test code = 2207) 13 MG/DL 8-23 CREATININE (test code = 4) 0.98 MG/DL 0.60-1.30 eGFR (2020 CKD-EPI) (test co de = 81916) 61 ML/MIN/1.73 >60 CALC BUN/CREAT (test code = 2234) 13 RATIO 6-28 SODIUM (test code = 223) 140 MEQ/L 133-146 POTASSIUM (test code = 2227) 4.8 MEQ/L 3.5-5.4 CHLORIDE (test code = 2214) 100 MEQ/L 95-107 CARBON DIOXIDE (test code = 2205) 20 MEQ/L 19-31 CALCIUM (test code = 2208) 9.9 MG/DL 8.5-10.5 PROTEIN, TOTAL (test code = 2228) 7.2 G/DL 6.1-8.3 ALBUMIN (test code = 2200) 4.4 G/DL 3.5-5.2 CALC GLOBULIN (test code = 2239) 2.8 G/DL 1.9-3.7 CALC A/G RATIO (test code = 2233) 1.6 RATIO 1.0-2.6 BILIRUBIN, TOTAL (test code = 2206) 0.3 MG/DL <=1.2 ALKALINE PHOSPHATASE (test code = 2203) 164 U/L 40-142 H AST (test code = 8) 15 U/L 9-40 ALT (test code = 2219) 11 U/L 5-40 CULTURE, [id number] 00:00:00* Test Item Value Reference Range Interpretation Comme nts CULTURE, URINE (test code = 85882) SPECIMEN NUMBER: [id number] Ben WestbrookHEMOGLOBIN [id number] 00:00:00* Test Item Value Reference Range Interpretation Comme nts HEMOGLOBIN A1c (test code = 60768) 5.9 % Ben WestbrookLIPID [id number] 00:00:00* Test Item Value Reference Range Interpretation Comme nts CHOLESTEROL (test code = 2210) 326 MG/DL TRIGLYCERIDES (test code = 2232) 419 MG/DL HDL CHOLESTEROL (test code = 2219) 32 MG/DL CALC LDL CHOL (test code = 2236) (NOTE) MG/DL RISK RATIO LDL/HDL (test cod e = 2238) (NOTE) RATIO Ben WestbrookCOMPREHENSIVE METABOLIC [id number] 00:00:00* Test Item Value Reference Range Interpretation Comme nts GLUCOSE (test code = 2217) 113 MG/DL BUN (test code = 2208) 13 MG/DL CREATININE (test code = 2214) 0.98 MG/DL eGFR (2020 CKD-EPI) (test co de = 60237) 61 ML/MIN/1.73 CALC BUN/CREAT (test code = 2235) 13 RATIO SODIUM (test code = 2231) 140 MEQ/L POTASSIUM (test code = 2228) 4.8 MEQ/L CHLORIDE (test code = 2215) 100 MEQ/L CARBON DIOXIDE (test code = 2206) 20 MEQ/L CALCIUM (test code = 2209) 9.9 MG/DL PROTEIN, TOTAL (test code = 2229) 7.2 G/DL ALBUMIN (test code = 2201) 4.4 G/DL CALC GLOBULIN (test code = 2240) 2.8 G/DL CALC A/G RATIO (test code = 2234) 1.6 RATIO BILIRUBIN, TOTAL (test code = 2207) 0.3 MG/DL ALKALINE PHOSPHATASE (test code = 2204) 164 U/L AST (test code = 2218) 15 U/L ALT (test code = 2219) 11 U/L Ben WestbrookOdqojuOX-[id number] 00:00:00* Test Item Value Reference Range Interpretation Comme kiko NT-proBNP (test code = 27671) 1007 PG/ML Ben WestbrookHEMOGLOBIN [id number] 00:00:00* Test Item Value Reference Range Interpretation Comme kiko HEMOGLOBIN A1c (test code = 48632) 5.9 % Ben WestbrookCULTURE, [id number] 00:00:00* Test Item Value Reference Range Interpretation Comme kiko CULTURE, URINE (test code = 47664) SPECIMEN NUMBER: [id number] Ben WestbrookLIPID [id number] 00:00:00* Test Item Value Reference Range Interpretation Comme nts CHOLESTEROL (test code = 2210) 326 MG/DL TRIGLYCERIDES (test code = 2232) 419 MG/DL HDL CHOLESTEROL (test code = 2220) 32 MG/DL CALC LDL CHOL (test code = 2237) (NOTE) MG/DL RISK RATIO LDL/HDL (test cod e = 2238) (NOTE) RATIO Ben WestbrookCOMPREHENSIVE METABOLIC [id number] 00:00:00* Test Item Value Reference Range Interpretation Comme nts GLUCOSE (test code = 2217) 113 MG/DL BUN (test code = 2208) 13 MG/DL CREATININE (test code = 2214) 0.98 MG/DL eGFR (2020 CKD-EPI) (test co de = 98376) 61 ML/MIN/1.73 CALC BUN/CREAT (test code = 2235) 13 RATIO SODIUM (test code = 2231) 140 MEQ/L POTASSIUM (test code = 2228) 4.8 MEQ/L CHLORIDE (test code = 2215) 100 MEQ/L CARBON DIOXIDE (test code = 2206) 20 MEQ/L CALCIUM (test code = 2209) 9.9 MG/DL PROTEIN, TOTAL (test code = 2229) 7.2 G/DL ALBUMIN (test code = 2201) 4.4 G/DL CALC GLOBULIN (test code = 2240) 2.8 G/DL CALC A/G RATIO (test code = 2234) 1.6 RATIO BILIRUBIN, TOTAL (test code = 2207) 0.3 MG/DL ALKALINE PHOSPHATASE (test code = 2204) 164 U/L AST (test code = 2218) 15 U/L ALT (test code = 2219) 11 U/L Ben WestbrookAxfvzlSP-[id number] 00:00:00* Test Item Value Reference Range Interpretation Comme nts NT-proBNP (test code = 67459) 1007 PG/ML Ben WestbrookHEMOGLOBIN [id number] 00:00:00* Test Item Value Reference Range Interpretation Comme nts HEMOGLOBIN A1c (test code = 82738) 5.9 % Ben WestbrookCULTURE, [id number] 00:00:00* Test Item Value Reference Range Interpretation Comme kiko CULTURE, URINE (test code = 03736) SPECIMEN NUMBER: [id number] Ben WestbrookLIPID [id number] 00:00:00* Test Item Value Reference Range Interpretation Comme nts CHOLESTEROL (test code = 2210) 326 MG/DL TRIGLYCERIDES (test code = 2232) 419 MG/DL HDL CHOLESTEROL (test code = 2220) 32 MG/DL CALC LDL CHOL (test code = 2237) (NOTE) MG/DL RISK RATIO LDL/HDL (test cod e = 2238) (NOTE) RATIO Ben WestbrookCOMPREHENSIVE METABOLIC [id number] 00:00:00* Test Item Value Reference Range Interpretation Comme nts GLUCOSE (test code = 2217) 113 MG/DL BUN (test code = 2208) 13 MG/DL CREATININE (test code = 2214) 0.98 MG/DL eGFR (2020 CKD-EPI) (test co de = 10794) 61 ML/MIN/1.73 CALC BUN/CREAT (test code = 2235) 13 RATIO SODIUM (test code = 2231) 140 MEQ/L POTASSIUM (test code = 2228) 4.8 MEQ/L CHLORIDE (test code = 2215) 100 MEQ/L CARBON DIOXIDE (test code = 2206) 20 MEQ/L CALCIUM (test code = 2209) 9.9 MG/DL PROTEIN, TOTAL (test code = 2229) 7.2 G/DL ALBUMIN (test code = 2201) 4.4 G/DL CALC GLOBULIN (test code = 2240) 2.8 G/DL CALC A/G RATIO (test code = 2234) 1.6 RATIO BILIRUBIN, TOTAL (test code = 2207) 0.3 MG/DL ALKALINE PHOSPHATASE (test code = 2204) 164 U/L AST (test code = 2218) 15 U/L ALT (test code = 2219) 11 U/L Ben WestbrookHqapfgSI-[id number] 00:00:00* Test Item Value Reference Range Interpretation Comme nts NT-proBNP (test code = 70968) 1007 PG/ML Ben WestbrookHEMOGLOBIN [id number] 00:00:00* Test Item Value Reference Range Interpretation Comme nts HEMOGLOBIN A1c (test code = 09200) 5.9 % Ben WestbrookCULTURE, [id number] 00:00:00* Test Item Value Reference Range Interpretation Comme kiko CULTURE, URINE (test code = 01401) SPECIMEN NUMBER: [id number] Ben WestbrookLIPID [id number] 00:00:00* Test Item Value Reference Range Interpretation Comme nts CHOLESTEROL (test code = 2210) 326 MG/DL TRIGLYCERIDES (test code = 2232) 419 MG/DL HDL CHOLESTEROL (test code = 2220) 32 MG/DL CALC LDL CHOL (test code = 2237) (NOTE) MG/DL RISK RATIO LDL/HDL (test cod e = 2238) (NOTE) RATIO Ben WestbrookCOMPREHENSIVE METABOLIC [id number] 00:00:00* Test Item Value Reference Range Interpretation Comme nts GLUCOSE (test code = 2217) 113 MG/DL BUN (test code = 2208) 13 MG/DL CREATININE (test code = 2214) 0.98 MG/DL eGFR (2020 CKD-EPI) (test co de = 08634) 61 ML/MIN/1.73 CALC BUN/CREAT (test code = 2235) 13 RATIO SODIUM (test code = 2231) 140 MEQ/L POTASSIUM (test code = 2228) 4.8 MEQ/L CHLORIDE (test code = 2215) 100 MEQ/L CARBON DIOXIDE (test code = 2206) 20 MEQ/L CALCIUM (test code = 2209) 9.9 MG/DL PROTEIN, TOTAL (test code = 2229) 7.2 G/DL ALBUMIN (test code = 2201) 4.4 G/DL CALC GLOBULIN (test code = 2240) 2.8 G/DL CALC A/G RATIO (test code = 2234) 1.6 RATIO BILIRUBIN, TOTAL (test code = 2207) 0.3 MG/DL ALKALINE PHOSPHATASE (test code = 2204) 164 U/L AST (test code = 2218) 15 U/L ALT (test code = 2219) 11 U/L Ben WestbrookRfmfeqKX-[id number] 00:00:00* Test Item Value Reference Range Interpretation Comme nts NT-proBNP (test code = 55853) 1007 PG/ML Ben WestbrookHEMOGLOBIN [id number] 00:00:00* Test Item Value Reference Range Interpretation Comme kiko HEMOGLOBIN A1c (test code = 47695) 5.9 % Ben WestbrookCULTURE, [id number] 00:00:00* Test Item Value Reference Range Interpretation Comme kiko CULTURE, URINE (test code = 67589) SPECIMEN NUMBER: [id number] Ben WestbrookLIPID [id number] 00:00:00* Test Item Value Reference Range Interpretation Comme nts CHOLESTEROL (test code = 2210) 326 MG/DL TRIGLYCERIDES (test code = 2232) 419 MG/DL HDL CHOLESTEROL (test code = 2220) 32 MG/DL CALC LDL CHOL (test code = 2237) (NOTE) MG/DL RISK RATIO LDL/HDL (test cod e = 2238) (NOTE) RATIO Ben WestbrookCOMPREHENSIVE METABOLIC [id number] 00:00:00* Test Item Value Reference Range Interpretation Comme nts GLUCOSE (test code = 2217) 113 MG/DL BUN (test code = 2208) 13 MG/DL CREATININE (test code = 2214) 0.98 MG/DL eGFR (2020 CKD-EPI) (test co de = 32350) 61 ML/MIN/1.73 CALC BUN/CREAT (test code = 2235) 13 RATIO SODIUM (test code = 2231) 140 MEQ/L POTASSIUM (test code = 2228) 4.8 MEQ/L CHLORIDE (test code = 2215) 100 MEQ/L CARBON DIOXIDE (test code = 2206) 20 MEQ/L CALCIUM (test code = 2209) 9.9 MG/DL PROTEIN, TOTAL (test code = 2229) 7.2 G/DL ALBUMIN (test code = 2201) 4.4 G/DL CALC GLOBULIN (test code = 2240) 2.8 G/DL CALC A/G RATIO (test code = 2234) 1.6 RATIO BILIRUBIN, TOTAL (test code = 2207) 0.3 MG/DL ALKALINE PHOSPHATASE (test code = 2204) 164 U/L AST (test code = 2218) 15 U/L ALT (test code = 2219) 11 U/L Ben WestbrookVqwdmwBX-[id number] 00:00:00* Test Item Value Reference Range Interpretation Comme nts NT-proBNP (test code = 76745) 1007 PG/ML Ben WestbrookHEMOGLOBIN [id number] 00:00:00* Test Item Value Reference Range Interpretation Comme kiko HEMOGLOBIN A1c (test code = 35956) 5.9 % Ben WestbrookCULTURE, [id number] 00:00:00* Test Item Value Reference Range Interpretation Comme kiko CULTURE, URINE (test code = 69824) SPECIMEN NUMBER: [id number] Ben WestbrookLIPID [id number] 00:00:00* Test Item Value Reference Range Interpretation Comme nts CHOLESTEROL (test code = 2210) 326 MG/DL TRIGLYCERIDES (test code = 2232) 419 MG/DL HDL CHOLESTEROL (test code = 2220) 32 MG/DL CALC LDL CHOL (test code = 2237) (NOTE) MG/DL RISK RATIO LDL/HDL (test cod e = 2238) (NOTE) RATIO Ben WestbrookCOMPREHENSIVE METABOLIC [id number] 00:00:00* Test Item Value Reference Range Interpretation Comme nts GLUCOSE (test code = 2217) 113 MG/DL BUN (test code = 2208) 13 MG/DL CREATININE (test code = 2214) 0.98 MG/DL eGFR (2020 CKD-EPI) (test co de = 47889) 61 ML/MIN/1.73 CALC BUN/CREAT (test code = 2235) 13 RATIO SODIUM (test code = 2231) 140 MEQ/L POTASSIUM (test code = 2228) 4.8 MEQ/L CHLORIDE (test code = 2215) 100 MEQ/L CARBON DIOXIDE (test code = 2206) 20 MEQ/L CALCIUM (test code = 2209) 9.9 MG/DL PROTEIN, TOTAL (test code = 2229) 7.2 G/DL ALBUMIN (test code = 2201) 4.4 G/DL CALC GLOBULIN (test code = 2240) 2.8 G/DL CALC A/G RATIO (test code = 2234) 1.6 RATIO BILIRUBIN, TOTAL (test code = 2207) 0.3 MG/DL ALKALINE PHOSPHATASE (test code = 2204) 164 U/L AST (test code = 2218) 15 U/L ALT (test code = 2219) 11 U/L Ben WestbrookXmuljqAE-[id number] 00:00:00* Test Item Value Reference Range Interpretation Comme nts NT-proBNP (test code = 23663) 1007 PG/ML Ben WestbrookHEMOGLOBIN [id number] 00:00:00* Test Item Value Reference Range Interpretation Comme kiko HEMOGLOBIN A1c (test code = 58445) 5.9 % Ben WestbrookCULTURE, [id number] 00:00:00* Test Item Value Reference Range Interpretation Comme nts CULTURE, URINE (test code = 77528) SPECIMEN NUMBER: [id number] Ben WestbrookLIPID [id number] 00:00:00* Test Item Value Reference Range Interpretation Comme nts CHOLESTEROL (test code = 2210) 326 MG/DL TRIGLYCERIDES (test code = 2232) 419 MG/DL HDL CHOLESTEROL (test code = 2220) 32 MG/DL CALC LDL CHOL (test code = 2237) (NOTE) MG/DL RISK RATIO LDL/HDL (test cod e = 2238) (NOTE) RATIO Ben WestbrookCOMPREHENSIVE METABOLIC [id number] 00:00:00* Test Item Value Reference Range Interpretation Comme nts GLUCOSE (test code = 2217) 113 MG/DL BUN (test code = 2208) 13 MG/DL CREATININE (test code = 2214) 0.98 MG/DL eGFR (2020 CKD-EPI) (test co de = 15990) 61 ML/MIN/1.73 CALC BUN/CREAT (test code = 2235) 13 RATIO SODIUM (test code = 2231) 140 MEQ/L POTASSIUM (test code = 2228) 4.8 MEQ/L CHLORIDE (test code = 2215) 100 MEQ/L CARBON DIOXIDE (test code = 2206) 20 MEQ/L CALCIUM (test code = 2209) 9.9 MG/DL PROTEIN, TOTAL (test code = 2229) 7.2 G/DL ALBUMIN (test code = 2201) 4.4 G/DL CALC GLOBULIN (test code = 2240) 2.8 G/DL CALC A/G RATIO (test code = 2234) 1.6 RATIO BILIRUBIN, TOTAL (test code = 2207) 0.3 MG/DL ALKALINE PHOSPHATASE (test code = 2204) 164 U/L AST (test code = 2218) 15 U/L ALT (test code = 2219) 11 U/L Ben WestbrookUicolyCF-[id number] 00:00:00* Test Item Value Reference Range Interpretation Comme kiko NT-proBNP (test code = 39854) 1007 PG/ML Ben WestbrookHEMOGLOBIN [id number] 00:00:00* Test Item Value Reference Range Interpretation Comme kiko HEMOGLOBIN A1c (test code = 15931) 5.9 % Ben WestbrookCULTURE, [id number] 00:00:00* Test Item Value Reference Range Interpretation Comme nts CULTURE, URINE (test code = 34259) SPECIMEN NUMBER: [id number] Ben WestbrookLIPID [id number] 00:00:00* Test Item Value Reference Range Interpretation Comme nts CHOLESTEROL (test code = 2210) 326 MG/DL TRIGLYCERIDES (test code = 2232) 419 MG/DL HDL CHOLESTEROL (test code = 2220) 32 MG/DL CALC LDL CHOL (test code = 2237) (NOTE) MG/DL RISK RATIO LDL/HDL (test cod e = 2238) (NOTE) RATIO Ben WestbrookCOMPREHENSIVE METABOLIC [id number] 00:00:00* Test Item Value Reference Range Interpretation Comme nts GLUCOSE (test code = 2217) 113 MG/DL BUN (test code = 2208) 13 MG/DL CREATININE (test code = 2214) 0.98 MG/DL eGFR (2020 CKD-EPI) (test co de = 62886) 61 ML/MIN/1.73 CALC BUN/CREAT (test code = 2235) 13 RATIO SODIUM (test code = 2231) 140 MEQ/L POTASSIUM (test code = 2228) 4.8 MEQ/L CHLORIDE (test code = 2215) 100 MEQ/L CARBON DIOXIDE (test code = 2206) 20 MEQ/L CALCIUM (test code = 2209) 9.9 MG/DL PROTEIN, TOTAL (test code = 2229) 7.2 G/DL ALBUMIN (test code = 2201) 4.4 G/DL CALC GLOBULIN (test code = 2240) 2.8 G/DL CALC A/G RATIO (test code = 2234) 1.6 RATIO BILIRUBIN, TOTAL (test code = 2207) 0.3 MG/DL ALKALINE PHOSPHATASE (test code = 2204) 164 U/L AST (test code = 2218) 15 U/L ALT (test code = 2219) 11 U/L Ben WestbrookFymveoJF-[id number] 00:00:00* Test Item Value Reference Range Interpretation Comme nts NT-proBNP (test code = 12492) 1007 PG/ML Ben WestbrookCULTURE, [id number] 00:00:00* Test Item Value Reference Range Interpretation Comme nts CULTURE, URINE (test code = 74568) SPECIMEN NUMBER: [id number] Ben WestbrookHEMOGLOBIN [id number] 00:00:00* Test Item Value Reference Range Interpretation Comme kiko HEMOGLOBIN A1c (test code = 25440) 5.9 % Ben WestbrookLIPID [id number] 00:00:00* Test Item Value Reference Range Interpretation Comme nts CHOLESTEROL (test code = 2210) 326 MG/DL TRIGLYCERIDES (test code = 2232) 419 MG/DL HDL CHOLESTEROL (test code = 2220) 32 MG/DL CALC LDL CHOL (test code = 2237) (NOTE) MG/DL RISK RATIO LDL/HDL (test cod e = 2238) (NOTE) RATIO Ben WestbrookCOMPREHENSIVE METABOLIC [id number] 00:00:00* Test Item Value Reference Range Interpretation Comme nts GLUCOSE (test code = 2217) 113 MG/DL BUN (test code = 2208) 13 MG/DL CREATININE (test code = 2214) 0.98 MG/DL eGFR (2020 CKD-EPI) (test co de = 74008) 61 ML/MIN/1.73 CALC BUN/CREAT (test code = 2235) 13 RATIO SODIUM (test code = 2231) 140 MEQ/L POTASSIUM (test code = 2228) 4.8 MEQ/L CHLORIDE (test code = 2215) 100 MEQ/L CARBON DIOXIDE (test code = 2206) 20 MEQ/L CALCIUM (test code = 2209) 9.9 MG/DL PROTEIN, TOTAL (test code = 2229) 7.2 G/DL ALBUMIN (test code = 2201) 4.4 G/DL CALC GLOBULIN (test code = 2240) 2.8 G/DL CALC A/G RATIO (test code = 2234) 1.6 RATIO BILIRUBIN, TOTAL (test code = 2207) 0.3 MG/DL ALKALINE PHOSPHATASE (test code = 2204) 164 U/L AST (test code = 2218) 15 U/L ALT (test code = 2219) 11 U/L Ben WestbrookIqhyarVZ-[id number] 00:00:00* Test Item Value Reference Range Interpretation Comme nts NT-proBNP (test code = 01691) 1007 PG/ML Ben WestbrookHEMOGLOBIN [id number] 00:00:00* Test Item Value Reference Range Interpretation Comme nts HEMOGLOBIN A1c (test code = 64122) 5.9 % Ben WestbrookCULTURE, [id number] 00:00:00* Test Item Value Reference Range Interpretation Comme kiko CULTURE, URINE (test code = 69123) SPECIMEN NUMBER: [id number] Ben WestbrookLIPID [id number] 00:00:00* Test Item Value Reference Range Interpretation Comme nts CHOLESTEROL (test code = 2210) 326 MG/DL TRIGLYCERIDES (test code = 2232) 419 MG/DL HDL CHOLESTEROL (test code = 2220) 32 MG/DL CALC LDL CHOL (test code = 2237) (NOTE) MG/DL RISK RATIO LDL/HDL (test cod e = 2238) (NOTE) RATIO Ben WestbrookCOMPREHENSIVE METABOLIC [id number] 00:00:00* Test Item Value Reference Range Interpretation Comme nts GLUCOSE (test code = 2217) 113 MG/DL BUN (test code = 2208) 13 MG/DL CREATININE (test code = 2214) 0.98 MG/DL eGFR (2020 CKD-EPI) (test co de = 02861) 61 ML/MIN/1.73 CALC BUN/CREAT (test code = 2235) 13 RATIO SODIUM (test code = 2231) 140 MEQ/L POTASSIUM (test code = 2228) 4.8 MEQ/L CHLORIDE (test code = 2215) 100 MEQ/L CARBON DIOXIDE (test code = 2206) 20 MEQ/L CALCIUM (test code = 2209) 9.9 MG/DL PROTEIN, TOTAL (test code = 2229) 7.2 G/DL ALBUMIN (test code = 2201) 4.4 G/DL CALC GLOBULIN (test code = 2240) 2.8 G/DL CALC A/G RATIO (test code = 2234) 1.6 RATIO BILIRUBIN, TOTAL (test code = 2207) 0.3 MG/DL ALKALINE PHOSPHATASE (test code = 2204) 164 U/L AST (test code = 2218) 15 U/L ALT (test code = 2219) 11 U/L Ben WestbrookFgmvxsUW-[id number] 00:00:00* Test Item Value Reference Range Interpretation Comme kiko NT-proBNP (test code = 01117) 1007 PG/ML Ben WestbrookHEMOGLOBIN [id number] 00:00:00* Test Item Value Reference Range Interpretation Comme kiko HEMOGLOBIN A1c (test code = 81806) 5.9 % Ben WestbrookCULTURE, [id number] 00:00:00* Test Item Value Reference Range Interpretation Comme kiko CULTURE, URINE (test code = 81266) SPECIMEN NUMBER: [id number] Ben WestbrookLIPID [id number] 00:00:00* Test Item Value Reference Range Interpretation Comme nts CHOLESTEROL (test code = 2210) 326 MG/DL TRIGLYCERIDES (test code = 2232) 419 MG/DL HDL CHOLESTEROL (test code = 2220) 32 MG/DL CALC LDL CHOL (test code = 2237) (NOTE) MG/DL RISK RATIO LDL/HDL (test cod e = 2238) (NOTE) RATIO Ben WestbrookCOMPREHENSIVE METABOLIC [id number] 00:00:00* Test Item Value Reference Range Interpretation Comme nts GLUCOSE (test code = 2217) 113 MG/DL BUN (test code = 2208) 13 MG/DL CREATININE (test code = 2214) 0.98 MG/DL eGFR (2020 CKD-EPI) (test co de = 37722) 61 ML/MIN/1.73 CALC BUN/CREAT (test code = 2235) 13 RATIO SODIUM (test code = 2231) 140 MEQ/L POTASSIUM (test code = 2228) 4.8 MEQ/L CHLORIDE (test code = 2215) 100 MEQ/L CARBON DIOXIDE (test code = 2206) 20 MEQ/L CALCIUM (test code = 2209) 9.9 MG/DL PROTEIN, TOTAL (test code = 2229) 7.2 G/DL ALBUMIN (test code = 2201) 4.4 G/DL CALC GLOBULIN (test code = 2240) 2.8 G/DL CALC A/G RATIO (test code = 2234) 1.6 RATIO BILIRUBIN, TOTAL (test code = 2207) 0.3 MG/DL ALKALINE PHOSPHATASE (test code = 2204) 164 U/L AST (test code = 2218) 15 U/L ALT (test code = 2219) 11 U/L Ben WestbrookTguobbXA-[id number] 00:00:00* Test Item Value Reference Range Interpretation Comme nts NT-proBNP (test code = 97922) 1007 PG/ML Ben WestbrookHEMOGLOBIN [id number] 00:00:00* Test Item Value Reference Range Interpretation Comme ikko HEMOGLOBIN A1c (test code = 23729) 5.9 % Ben WestbrookCULTURE, [id number] 00:00:00* Test Item Value Reference Range Interpretation Comme kiko CULTURE, URINE (test code = 76500) SPECIMEN NUMBER: [id number] Ben WestbrookLIPID [id number] 00:00:00* Test Item Value Reference Range Interpretation Comme nts CHOLESTEROL (test code = 2210) 326 MG/DL TRIGLYCERIDES (test code = 2232) 419 MG/DL HDL CHOLESTEROL (test code = 2220) 32 MG/DL CALC LDL CHOL (test code = 2237) (NOTE) MG/DL RISK RATIO LDL/HDL (test cod e = 2238) (NOTE) RATIO Ben WestbrookCOMPREHENSIVE METABOLIC [id number] 00:00:00* Test Item Value Reference Range Interpretation Comme nts GLUCOSE (test code = 2217) 113 MG/DL BUN (test code = 2208) 13 MG/DL CREATININE (test code = 2214) 0.98 MG/DL eGFR (2020 CKD-EPI) (test co de = 15840) 61 ML/MIN/1.73 CALC BUN/CREAT (test code = 2235) 13 RATIO SODIUM (test code = 2231) 140 MEQ/L POTASSIUM (test code = 2228) 4.8 MEQ/L CHLORIDE (test code = 2215) 100 MEQ/L CARBON DIOXIDE (test code = 2206) 20 MEQ/L CALCIUM (test code = 2209) 9.9 MG/DL PROTEIN, TOTAL (test code = 2229) 7.2 G/DL ALBUMIN (test code = 2201) 4.4 G/DL CALC GLOBULIN (test code = 2240) 2.8 G/DL CALC A/G RATIO (test code = 2234) 1.6 RATIO BILIRUBIN, TOTAL (test code = 2207) 0.3 MG/DL ALKALINE PHOSPHATASE (test code = 2204) 164 U/L AST (test code = 2218) 15 U/L ALT (test code = 2219) 11 U/L Ben WestbrookIlromjGX-[id number] 00:00:00* Test Item Value Reference Range Interpretation Comme nts NT-proBNP (test code = 55563) 1007 PG/ML Ben WestbrookHEMOGLOBIN [id number] 00:00:00* Test Item Value Reference Range Interpretation Comme nts HEMOGLOBIN A1c (test code = 26672) 5.9 % Ben WestbrookCULTURE, [id number] 00:00:00* Test Item Value Reference Range Interpretation Comme kiko CULTURE, URINE (test code = 33535) SPECIMEN NUMBER: [id number] Ben WestbrookLIPID [id number] 00:00:00* Test Item Value Reference Range Interpretation Comme nts CHOLESTEROL (test code = 2210) 326 MG/DL TRIGLYCERIDES (test code = 2232) 419 MG/DL HDL CHOLESTEROL (test code = 2220) 32 MG/DL CALC LDL CHOL (test code = 2237) (NOTE) MG/DL RISK RATIO LDL/HDL (test cod e = 2238) (NOTE) RATIO Ben WestbrookCOMPREHENSIVE METABOLIC [id number] 00:00:00* Test Item Value Reference Range Interpretation Comme nts GLUCOSE (test code = 2217) 113 MG/DL BUN (test code = 2208) 13 MG/DL CREATININE (test code = 2214) 0.98 MG/DL eGFR (2020 CKD-EPI) (test co de = 72644) 61 ML/MIN/1.73 CALC BUN/CREAT (test code = 2235) 13 RATIO SODIUM (test code = 2231) 140 MEQ/L POTASSIUM (test code = 2228) 4.8 MEQ/L CHLORIDE (test code = 2215) 100 MEQ/L CARBON DIOXIDE (test code = 2206) 20 MEQ/L CALCIUM (test code = 2209) 9.9 MG/DL PROTEIN, TOTAL (test code = 2229) 7.2 G/DL ALBUMIN (test code = 2201) 4.4 G/DL CALC GLOBULIN (test code = 2240) 2.8 G/DL CALC A/G RATIO (test code = 2234) 1.6 RATIO BILIRUBIN, TOTAL (test code = 2207) 0.3 MG/DL ALKALINE PHOSPHATASE (test code = 2204) 164 U/L AST (test code = 2218) 15 U/L ALT (test code = 2219) 11 U/L Ben WestbrookBiwsygAV-[id number] 00:00:00* Test Item Value Reference Range Interpretation Comme nts NT-proBNP (test code = 78611) 1007 PG/ML KATIANA Keating2024-09-26 10:35:23SPECIMEN NUMBER: [id number] CULTURE, URINE SPECIMEN NUMBER: [id number] SOURCE: URINE REPORT STATUS: FINAL ISOLATE NUMBER 1: ORGANISM: 04/05/2024 >100,000 CFU/ML GRAM NEGATIVE BACILLI IDENTIFICATION:04/06/2024 KLEBSIELLA RHINOSCLEROMATIS K. RHINOSCLEROMA AMOXICILLIN/CA SENSITIVE <=8/4AMPICILLIN RESISTANT >16CEFAZOLIN SENSITIVE <=2CEFTRIAXONE SENSITIVE <=1CIPROFLOXACIN SENSITIVE <=0.25LEVOFLOXACIN SENSITIVE <=0.5NITROFURANTOIN SENSITIVE <=32PIP/TAZOBAC SENSI TIVE <=16TOBRAMYCIN SENSITIVE <=4TRIMETH/SULFA SENSITIVE <=2/38 NOTE: NUMBERS DISPLAYED REPRESENT MINIMUM INHIBITORY CONCENTRATION (TERRENCE) WHICH IS EXPRESSED IN MCG/ML. UNLESS OTHERWISE INDICATED, ALL TESTING PERFORMED AT [facility] [address] [place] [address] MANUFACTURING PROJECT ENGINEER: JOHNATHON BARFIELD M.D. CLIA NUMBER [id number] [facility] [place] [id number], [id number] 00:00:00* Test Item Value Reference Range Interpretation Comme nts CULTURE, URINE (test code = 76611) SPECIMEN NUMBER: [id number] KATIANA Keating2024-09-26 00:00:00* Test Item Value Reference Range Interpretation Comme nts CULTURE, URINE (test code = 81670) SPECIMEN NUMBER: [id number] KATIANA Keating2024-09-26 00:00:00* Test Item Value Reference Range Interpretation Comme nts CULTURE, URINE (test code = 90443) SPECIMEN NUMBER: [id number] KATIANA Keating2024-09-26 00:00:00* Test Item Value Reference Range Interpretation Comme nts CULTURE, URINE (test code = 11680) SPECIMEN NUMBER: [id number] KATIANA Keating2024-09-26 00:00:00* Test Item Value Reference Range Interpretation Comme nts CULTURE, URINE (test code = 77718) SPECIMEN NUMBER: [id number] Ben Paiz [id number] 00:00:00* Test Item Value Reference Range Interpretation Comme nts CULTURE, URINE (test code = 91835) SPECIMEN NUMBER: [id number] Ben Paiz [id number] 00:00:00* Test Item Value Reference Range Interpretation Comme nts CULTURE, URINE (test code = 56771) SPECIMEN NUMBER: [id number] Ben MartinezLTJANE [id number] 00:00:00* Test Item Value Reference Range Interpretation Comme nts CULTURE, URINE (test code = 41365) SPECIMEN NUMBER: [id number] Ben Paiz [id number] 00:00:00* Test Item Value Reference Range Interpretation Comme nts CULTURE, URINE (test code = 16210) SPECIMEN NUMBER: [id number] Ben Paiz [id number] 00:00:00* Test Item Value Reference Range Interpretation Comme nts CULTURE, URINE (test code = 13223) SPECIMEN NUMBER: [id number] Ben MartinezLTJANE [id number] 00:00:00* Test Item Value Reference Range Interpretation Comme nts CULTURE, URINE (test code = 01613) SPECIMEN NUMBER: [id number] Ben MartinezLTJANE [id number] 00:00:00* Test Item Value Reference Range Interpretation Comme nts CULTURE, URINE (test code = 50142) SPECIMEN NUMBER: [id number] Ben MartinezLTJANE, [id number] 00:00:00* Test Item Value Reference Range Interpretation Comme nts CULTURE, URINE (test code = 27025) SPECIMEN NUMBER: [id number] Ben MartinezLTJANE, [id number] 00:00:00* Test Item Value Reference Range Interpretation Comme nts CULTURE, URINE (test code = 11700) SPECIMEN NUMBER: [id number] Ben MartinezLTJANE, [id number] 00:00:00* Test Item Value Reference Range Interpretation Comme nts CULTURE, URINE (test code = 05217) SPECIMEN NUMBER: [id number] Ben WestbrookREFERRAL- REQUEST/[id number] 20:10:45Ordered by an unspecified provider.[facility]IN2023-[facility]-14 10:12:05* Test Item Value Reference Range Interpretation Comme nts ERYTHROPOIETIN (test code = 4836) 4.3 MIU/ML 2.6-18.5 EXPECTED ERYTHROPOIETIN CONCENTRATIONS IN PATIENTS WITH UNCOMPLICATED ANEMIA: ERYTHROPOIETIN (mIU/mL) 100,000 - 10,000 - ............. ............. ............. ............. 1,000 - ............. ............. ............. ............. 100 - ............. ............. ............. 10 - ............. ............. 10 20 30 40 50 60 70 (HEMATOCRIT %) (CONTRIBUTIONS TO NEPHROLOGY 1988:66:54-62) UNLESS OTHERWISE INDICATED, ALL TESTING PERFORMED AT [facility] [address] [place] [address] MANUFACTURING PROJECT ENGINEER: JOHNATHON BARFIELD M.D. CLIA NUMBER [id number] [facility] [place]. [id number] CBC W/AUTO DIFF WITH [id number] 03:25:27* Test Item Value Reference Range Interpretation Comme nts WBC (test code = 1001) 11.5 K/UL 3.5-11.0 H RBC (test code = 1002) 5.53 M/UL 3.80-5.40 H HEMOGLOBIN (test code = 1003) 17.2 G/DL 11.5-15.5 H HEMATOCRIT (test code = 1004) 51.4 % 34.0-45.0 H MCV (test code = 1005) 92.9 fL 80.0-99.0 MCH (test code = 1006) 31.1 PG 25.0-33.0 MCHC (test code = 1007) 33.5 G/DL 31.0-36.0 RDW (test code = 1038) 14.4 % 11.5-15.0 NEUTROPHILS (test code = 1008) 53.0 % LYMPHOCYTES (test code = 1010) 38.8 % MONOCYTES (test code = 1011) 5.7 % EOSINOPHILS (test code = 1012) 1.6 % BASOPHILS (test code = 1013) 0.6 % IMMATURE GRANULOCYTES (test code = 1036) 0.3 % NUCLEATED RBCS (test code = 1065) 0.0 /100 WBC'S See_Comment [Automated message] The system which generated this result transmitted reference range: 0.0. The reference range was not used to interpret this result as normal/abnormal. PLATELET COUNT (test code = 1015) 350 K/UL 130-400 ABSOLUTE NEUTROPHILS (test code = 1066) 6.10 K/UL 1.50-7.50 ABSOLUTE LYMPHOCYTES (test code = 1067) 4.48 K/UL 1.00-4.00 H ABSOLUTE MONOCYTES (test code = 1068) 0.66 K/UL 0.20-1.00 ABSOLUTE EOSINOPHILS (test code = 1040) 0.19 K/UL 0.00-0.50 ABSOLUTE BASOPHILS (test code = 1069) 0.07 K/UL 0.00-0.20 ABS IMMATURE GRANULOCYTES (test code = 1020) 0.04 K/UL 0.00-0.10 ABS NUCLEATED RBCS (test code = 07114) 0.00 K/UL 0.00-0.11 UNLESS OTHER WALLS INDICATED, ALL TESTING PERFORMED AT [facility] [address] [place] [id number] MANUFACTURING PROJECT ENGINEER: JOHNATHON BARFIELD M.D. CLIA NUMBER [id number] [place]. [id number] 00:00:00* Test Item Value Reference Range Interpretation Comme nts ERYTHROPOIETIN (test code = 4836) 4.3 MIU/ML Ben F AustinCBC W/AUTO [id number] 00:00:00* Test Item Value Reference Range Interpretation Comme nts WBC (test code = 1001) 11.5 K/UL RBC (test code = 1002) 5.53 M/UL HEMOGLOBIN (test code = 1003) 17.2 G/DL HEMATOCRIT (test code = 1004) 51.4 % MCV (test code = 1005) 92.9 fL MCH (test code = 1006) 31.1 PG MCHC (test code = 1007) 33.5 G/DL RDW (test code = 1038) 14.4 % NEUTROPHILS (test code = 1008) 53.0 % LYMPHOCYTES (test code = 1010) 38.8 % MONOCYTES (test code = 1011) 5.7 % EOSINOPHILS (test code = 1012) 1.6 % BASOPHILS (test code = 1013) 0.6 % IMMATURE GRANULOCYTES (test code = 1036) 0.3 % NUCLEATED RBCS (test code = 1065) 0.0 /100WBC'S PLATELET COUNT (test code = 1015) 350 K/UL ABSOLUTE NEUTROPHILS (test c ode = 1066) 6.10 K/UL ABSOLUTE LYMPHOCYTES (test c ode = 1067) 4.48 K/UL ABSOLUTE MONOCYTES (test cod e = 1068) 0.66 K/UL ABSOLUTE EOSINOPHILS (test c ode = 1040) 0.19 K/UL ABSOLUTE BASOPHILS (test cod e = 1069) 0.07 K/UL ABS IMMATURE GRANULOCYTES (t est code = 1020) 0.04 K/UL ABS NUCLEATED RBCS (test cod e = 58724) 0.00 K/UL Ben Wes[id number] 00:00:00* Test Item Value Reference Range Interpretation Comme nts ERYTHROPOIETIN (test code = 4836) 4.3 MIU/ML Ben WestbrookCBC W/AUTO [id number] 00:00:00* Test Item Value Reference Range Interpretation Comme nts WBC (test code = 1001) 11.5 K/UL RBC (test code = 1002) 5.53 M/UL HEMOGLOBIN (test code = 1003) 17.2 G/DL HEMATOCRIT (test code = 1004) 51.4 % MCV (test code = 1005) 92.9 fL MCH (test code = 1006) 31.1 PG MCHC (test code = 1007) 33.5 G/DL RDW (test code = 1038) 14.4 % NEUTROPHILS (test code = 1008) 53.0 % LYMPHOCYTES (test code = 1010) 38.8 % MONOCYTES (test code = 1011) 5.7 % EOSINOPHILS (test code = 1012) 1.6 % BASOPHILS (test code = 1013) 0.6 % IMMATURE GRANULOCYTES (test code = 1036) 0.3 % NUCLEATED RBCS (test code = 1065) 0.0 /100WBC'S PLATELET COUNT (test code = 1015) 350 K/UL ABSOLUTE NEUTROPHILS (test c ode = 1066) 6.10 K/UL ABSOLUTE LYMPHOCYTES (test c ode = 1067) 4.48 K/UL ABSOLUTE MONOCYTES (test cod e = 1068) 0.66 K/UL ABSOLUTE EOSINOPHILS (test c ode = 1040) 0.19 K/UL ABSOLUTE BASOPHILS (test cod e = 1069) 0.07 K/UL ABS IMMATURE GRANULOCYTES (t est code = 1020) 0.04 K/UL ABS NUCLEATED RBCS (test cod e = 73769) 0.00 K/UL Ben Osei [id number] 00:00:00* Test Item Value Reference Range Interpretation Comme nts ERYTHROPOIETIN (test code = 4836) 4.3 MIU/ML Ben WestbrookCBC W/AUTO [id number] 00:00:00* Test Item Value Reference Range Interpretation Comme nts WBC (test code = 1001) 11.5 K/UL RBC (test code = 1002) 5.53 M/UL HEMOGLOBIN (test code = 1003) 17.2 G/DL HEMATOCRIT (test code = 1004) 51.4 % MCV (test code = 1005) 92.9 fL MCH (test code = 1006) 31.1 PG MCHC (test code = 1007) 33.5 G/DL RDW (test code = 1038) 14.4 % NEUTROPHILS (test code = 1008) 53.0 % LYMPHOCYTES (test code = 1010) 38.8 % MONOCYTES (test code = 1011) 5.7 % EOSINOPHILS (test code = 1012) 1.6 % BASOPHILS (test code = 1013) 0.6 % IMMATURE GRANULOCYTES (test code = 1036) 0.3 % NUCLEATED RBCS (test code = 1065) 0.0 /100WBC'S PLATELET COUNT (test code = 1015) 350 K/UL ABSOLUTE NEUTROPHILS (test c ode = 1066) 6.10 K/UL ABSOLUTE LYMPHOCYTES (test c ode = 1067) 4.48 K/UL ABSOLUTE MONOCYTES (test cod e = 1068) 0.66 K/UL ABSOLUTE EOSINOPHILS (test c ode = 1040) 0.19 K/UL ABSOLUTE BASOPHILS (test cod e = 1069) 0.07 K/UL ABS IMMATURE GRANULOCYTES (t est code = 1020) 0.04 K/UL ABS NUCLEATED RBCS (test cod e = 56234) 0.00 K/UL Ben West[id number] 00:00:00* Test Item Value Reference Range Interpretation Comme nts ERYTHROPOIETIN (test code = 4836) 4.3 MIU/ML Ben WestbrookCBC W/AUTO [id number] 00:00:00* Test Item Value Reference Range Interpretation Comme nts WBC (test code = 1001) 11.5 K/UL RBC (test code = 1002) 5.53 M/UL HEMOGLOBIN (test code = 1003) 17.2 G/DL HEMATOCRIT (test code = 1004) 51.4 % MCV (test code = 1005) 92.9 fL MCH (test code = 1006) 31.1 PG MCHC (test code = 1007) 33.5 G/DL RDW (test code = 1038) 14.4 % NEUTROPHILS (test code = 1008) 53.0 % LYMPHOCYTES (test code = 1010) 38.8 % MONOCYTES (test code = 1011) 5.7 % EOSINOPHILS (test code = 1012) 1.6 % BASOPHILS (test code = 1013) 0.6 % IMMATURE GRANULOCYTES (test code = 1036) 0.3 % NUCLEATED RBCS (test code = 1065) 0.0 /100WBC'S PLATELET COUNT (test code = 1015) 350 K/UL ABSOLUTE NEUTROPHILS (test c ode = 1066) 6.10 K/UL ABSOLUTE LYMPHOCYTES (test c ode = 1067) 4.48 K/UL ABSOLUTE MONOCYTES (test cod e = 1068) 0.66 K/UL ABSOLUTE EOSINOPHILS (test c ode = 1040) 0.19 K/UL ABSOLUTE BASOPHILS (test cod e = 1069) 0.07 K/UL ABS IMMATURE GRANULOCYTES (t est code = 1020) 0.04 K/UL ABS NUCLEATED RBCS (test cod e = 41001) 0.00 K/UL Ben Osei [id number] 00:00:00* Test Item Value Reference Range Interpretation Comme nts ERYTHROPOIETIN (test code = 4836) 4.3 MIU/ML Ben Osei AustinCBC W/AUTO [id number] 00:00:00* Test Item Value Reference Range Interpretation Comme nts WBC (test code = 1001) 11.5 K/UL RBC (test code = 1002) 5.53 M/UL HEMOGLOBIN (test code = 1003) 17.2 G/DL HEMATOCRIT (test code = 1004) 51.4 % MCV (test code = 1005) 92.9 fL MCH (test code = 1006) 31.1 PG MCHC (test code = 1007) 33.5 G/DL RDW (test code = 1038) 14.4 % NEUTROPHILS (test code = 1008) 53.0 % LYMPHOCYTES (test code = 1010) 38.8 % MONOCYTES (test code = 1011) 5.7 % EOSINOPHILS (test code = 1012) 1.6 % BASOPHILS (test code = 1013) 0.6 % IMMATURE GRANULOCYTES (test code = 1036) 0.3 % NUCLEATED RBCS (test code = 1065) 0.0 /100WBC'S PLATELET COUNT (test code = 1015) 350 K/UL ABSOLUTE NEUTROPHILS (test c ode = 1066) 6.10 K/UL ABSOLUTE LYMPHOCYTES (test c ode = 1067) 4.48 K/UL ABSOLUTE MONOCYTES (test cod e = 1068) 0.66 K/UL ABSOLUTE EOSINOPHILS (test c ode = 1040) 0.19 K/UL ABSOLUTE BASOPHILS (test cod e = 1069) 0.07 K/UL ABS IMMATURE GRANULOCYTES (t est code = 1020) 0.04 K/UL ABS NUCLEATED RBCS (test cod e = 92573) 0.00 K/UL Ben Osei [id number] 00:00:00* Test Item Value Reference Range Interpretation Comme nts ERYTHROPOIETIN (test code = 4836) 4.3 MIU/ML Ben Osei AustinCBC W/AUTO [id number] 00:00:00* Test Item Value Reference Range Interpretation Comme nts WBC (test code = 1001) 11.5 K/UL RBC (test code = 1002) 5.53 M/UL HEMOGLOBIN (test code = 1003) 17.2 G/DL HEMATOCRIT (test code = 1004) 51.4 % MCV (test code = 1005) 92.9 fL MCH (test code = 1006) 31.1 PG MCHC (test code = 1007) 33.5 G/DL RDW (test code = 1038) 14.4 % NEUTROPHILS (test code = 1008) 53.0 % LYMPHOCYTES (test code = 1010) 38.8 % MONOCYTES (test code = 1011) 5.7 % EOSINOPHILS (test code = 1012) 1.6 % BASOPHILS (test code = 1013) 0.6 % IMMATURE GRANULOCYTES (test code = 1036) 0.3 % NUCLEATED RBCS (test code = 1065) 0.0 /100WBC'S PLATELET COUNT (test code = 1015) 350 K/UL ABSOLUTE NEUTROPHILS (test c ode = 1066) 6.10 K/UL ABSOLUTE LYMPHOCYTES (test c ode = 1067) 4.48 K/UL ABSOLUTE MONOCYTES (test cod e = 1068) 0.66 K/UL ABSOLUTE EOSINOPHILS (test c ode = 1040) 0.19 K/UL ABSOLUTE BASOPHILS (test cod e = 1069) 0.07 K/UL ABS IMMATURE GRANULOCYTES (t est code = 1020) 0.04 K/UL ABS NUCLEATED RBCS (test cod e = 01860) 0.00 K/UL Ben West[id number] 00:00:00* Test Item Value Reference Range Interpretation Comme nts ERYTHROPOIETIN (test code = 4836) 4.3 MIU/ML Ben WestbrookCBC W/AUTO [id number] 00:00:00* Test Item Value Reference Range Interpretation Comme nts WBC (test code = 1001) 11.5 K/UL RBC (test code = 1002) 5.53 M/UL HEMOGLOBIN (test code = 1003) 17.2 G/DL HEMATOCRIT (test code = 1004) 51.4 % MCV (test code = 1005) 92.9 fL MCH (test code = 1006) 31.1 PG MCHC (test code = 1007) 33.5 G/DL RDW (test code = 1038) 14.4 % NEUTROPHILS (test code = 1008) 53.0 % LYMPHOCYTES (test code = 1010) 38.8 % MONOCYTES (test code = 1011) 5.7 % EOSINOPHILS (test code = 1012) 1.6 % BASOPHILS (test code = 1013) 0.6 % IMMATURE GRANULOCYTES (test code = 1036) 0.3 % NUCLEATED RBCS (test code = 1065) 0.0 /100WBC'S PLATELET COUNT (test code = 1015) 350 K/UL ABSOLUTE NEUTROPHILS (test c ode = 1066) 6.10 K/UL ABSOLUTE LYMPHOCYTES (test c ode = 1067) 4.48 K/UL ABSOLUTE MONOCYTES (test cod e = 1068) 0.66 K/UL ABSOLUTE EOSINOPHILS (test c ode = 1040) 0.19 K/UL ABSOLUTE BASOPHILS (test cod e = 1069) 0.07 K/UL ABS IMMATURE GRANULOCYTES (t est code = 1020) 0.04 K/UL ABS NUCLEATED RBCS (test cod e = 86225) 0.00 K/UL Ben Westb[id number] 00:00:00* Test Item Value Reference Range Interpretation Comme nts ERYTHROPOIETIN (test code = 4836) 4.3 MIU/ML Ben WestbrookCBC W/AUTO [id number] 00:00:00* Test Item Value Reference Range Interpretation Comme nts WBC (test code = 1001) 11.5 K/UL RBC (test code = 1002) 5.53 M/UL HEMOGLOBIN (test code = 1003) 17.2 G/DL HEMATOCRIT (test code = 1004) 51.4 % MCV (test code = 1005) 92.9 fL MCH (test code = 1006) 31.1 PG MCHC (test code = 1007) 33.5 G/DL RDW (test code = 1038) 14.4 % NEUTROPHILS (test code = 1008) 53.0 % LYMPHOCYTES (test code = 1010) 38.8 % MONOCYTES (test code = 1011) 5.7 % EOSINOPHILS (test code = 1012) 1.6 % BASOPHILS (test code = 1013) 0.6 % IMMATURE GRANULOCYTES (test code = 1036) 0.3 % NUCLEATED RBCS (test code = 1065) 0.0 /100WBC'S PLATELET COUNT (test code = 1015) 350 K/UL ABSOLUTE NEUTROPHILS (test c ode = 1066) 6.10 K/UL ABSOLUTE LYMPHOCYTES (test c ode = 1067) 4.48 K/UL ABSOLUTE MONOCYTES (test cod e = 1068) 0.66 K/UL ABSOLUTE EOSINOPHILS (test c ode = 1040) 0.19 K/UL ABSOLUTE BASOPHILS (test cod e = 1069) 0.07 K/UL ABS IMMATURE GRANULOCYTES (t est code = 1020) 0.04 K/UL ABS NUCLEATED RBCS (test cod e = 37860) 0.00 K/UL Ben Westb[id number] 00:00:00* Test Item Value Reference Range Interpretation Comme nts ERYTHROPOIETIN (test code = 4836) 4.3 MIU/ML Ben WestbrookCBC W/AUTO [id number] 00:00:00* Test Item Value Reference Range Interpretation Comme nts WBC (test code = 1001) 11.5 K/UL RBC (test code = 1002) 5.53 M/UL HEMOGLOBIN (test code = 1003) 17.2 G/DL HEMATOCRIT (test code = 1004) 51.4 % MCV (test code = 1005) 92.9 fL MCH (test code = 1006) 31.1 PG MCHC (test code = 1007) 33.5 G/DL RDW (test code = 1038) 14.4 % NEUTROPHILS (test code = 1008) 53.0 % LYMPHOCYTES (test code = 1010) 38.8 % MONOCYTES (test code = 1011) 5.7 % EOSINOPHILS (test code = 1012) 1.6 % BASOPHILS (test code = 1013) 0.6 % IMMATURE GRANULOCYTES (test code = 1036) 0.3 % NUCLEATED RBCS (test code = 1065) 0.0 /100WBC'S PLATELET COUNT (test code = 1015) 350 K/UL ABSOLUTE NEUTROPHILS (test c ode = 1066) 6.10 K/UL ABSOLUTE LYMPHOCYTES (test c ode = 1067) 4.48 K/UL ABSOLUTE MONOCYTES (test cod e = 1068) 0.66 K/UL ABSOLUTE EOSINOPHILS (test c ode = 1040) 0.19 K/UL ABSOLUTE BASOPHILS (test cod e = 1069) 0.07 K/UL ABS IMMATURE GRANULOCYTES (t est code = 1020) 0.04 K/UL ABS NUCLEATED RBCS (test cod e = 72561) 0.00 K/UL Ben Osei [id number] 00:00:00* Test Item Value Reference Range Interpretation Comme nts ERYTHROPOIETIN (test code = 4836) 4.3 MIU/ML Ben Osei AustinCBC W/AUTO [id number] 00:00:00* Test Item Value Reference Range Interpretation Comme nts WBC (test code = 1001) 11.5 K/UL RBC (test code = 1002) 5.53 M/UL HEMOGLOBIN (test code = 1003) 17.2 G/DL HEMATOCRIT (test code = 1004) 51.4 % MCV (test code = 1005) 92.9 fL MCH (test code = 1006) 31.1 PG MCHC (test code = 1007) 33.5 G/DL RDW (test code = 1038) 14.4 % NEUTROPHILS (test code = 1008) 53.0 % LYMPHOCYTES (test code = 1010) 38.8 % MONOCYTES (test code = 1011) 5.7 % EOSINOPHILS (test code = 1012) 1.6 % BASOPHILS (test code = 1013) 0.6 % IMMATURE GRANULOCYTES (test code = 1036) 0.3 % NUCLEATED RBCS (test code = 1065) 0.0 /100WBC'S PLATELET COUNT (test code = 1015) 350 K/UL ABSOLUTE NEUTROPHILS (test c ode = 1066) 6.10 K/UL ABSOLUTE LYMPHOCYTES (test c ode = 1067) 4.48 K/UL ABSOLUTE MONOCYTES (test cod e = 1068) 0.66 K/UL ABSOLUTE EOSINOPHILS (test c ode = 1040) 0.19 K/UL ABSOLUTE BASOPHILS (test cod e = 1069) 0.07 K/UL ABS IMMATURE GRANULOCYTES (t est code = 1020) 0.04 K/UL ABS NUCLEATED RBCS (test cod e = 51674) 0.00 K/UL Ben Osei [id number] 00:00:00* Test Item Value Reference Range Interpretation Comme nts ERYTHROPOIETIN (test code = 4836) 4.3 MIU/ML Ben Osei AustinCBC W/AUTO [id number] 00:00:00* Test Item Value Reference Range Interpretation Comme nts WBC (test code = 1001) 11.5 K/UL RBC (test code = 1002) 5.53 M/UL HEMOGLOBIN (test code = 1003) 17.2 G/DL HEMATOCRIT (test code = 1004) 51.4 % MCV (test code = 1005) 92.9 fL MCH (test code = 1006) 31.1 PG MCHC (test code = 1007) 33.5 G/DL RDW (test code = 1038) 14.4 % NEUTROPHILS (test code = 1008) 53.0 % LYMPHOCYTES (test code = 1010) 38.8 % MONOCYTES (test code = 1011) 5.7 % EOSINOPHILS (test code = 1012) 1.6 % BASOPHILS (test code = 1013) 0.6 % IMMATURE GRANULOCYTES (test code = 1036) 0.3 % NUCLEATED RBCS (test code = 1065) 0.0 /100WBC'S PLATELET COUNT (test code = 1015) 350 K/UL ABSOLUTE NEUTROPHILS (test c ode = 1066) 6.10 K/UL ABSOLUTE LYMPHOCYTES (test c ode = 1067) 4.48 K/UL ABSOLUTE MONOCYTES (test cod e = 1068) 0.66 K/UL ABSOLUTE EOSINOPHILS (test c ode = 1040) 0.19 K/UL ABSOLUTE BASOPHILS (test cod e = 1069) 0.07 K/UL ABS IMMATURE GRANULOCYTES (t est code = 1020) 0.04 K/UL ABS NUCLEATED RBCS (test cod e = 17001) 0.00 K/UL Ben Sea [id number] 00:00:00* Test Item Value Reference Range Interpretation Comme nts ERYTHROPOIETIN (test code = 4836) 4.3 MIU/ML Ben Osei PietroCBC W/AUTO [id number] 00:00:00* Test Item Value Reference Range Interpretation Comme nts WBC (test code = 1001) 11.5 K/UL RBC (test code = 1002) 5.53 M/UL HEMOGLOBIN (test code = 1003) 17.2 G/DL HEMATOCRIT (test code = 1004) 51.4 % MCV (test code = 1005) 92.9 fL MCH (test code = 1006) 31.1 PG MCHC (test code = 1007) 33.5 G/DL RDW (test code = 1038) 14.4 % NEUTROPHILS (test code = 1008) 53.0 % LYMPHOCYTES (test code = 1010) 38.8 % MONOCYTES (test code = 1011) 5.7 % EOSINOPHILS (test code = 1012) 1.6 % BASOPHILS (test code = 1013) 0.6 % IMMATURE GRANULOCYTES (test code = 1036) 0.3 % NUCLEATED RBCS (test code = 1065) 0.0 /100WBC'S PLATELET COUNT (test code = 1015) 350 K/UL ABSOLUTE NEUTROPHILS (test c ode = 1066) 6.10 K/UL ABSOLUTE LYMPHOCYTES (test c ode = 1067) 4.48 K/UL ABSOLUTE MONOCYTES (test cod e = 1068) 0.66 K/UL ABSOLUTE EOSINOPHILS (test c ode = 1040) 0.19 K/UL ABSOLUTE BASOPHILS (test cod e = 1069) 0.07 K/UL ABS IMMATURE GRANULOCYTES (t est code = 1020) 0.04 K/UL ABS NUCLEATED RBCS (test cod e = 38466) 0.00 K/UL Ben Westb[id number] 00:00:00* Test Item Value Reference Range Interpretation Comme nts ERYTHROPOIETIN (test code = 4836) 4.3 MIU/ML Ben WestbrookCBC W/AUTO [id number] 00:00:00* Test Item Value Reference Range Interpretation Comme nts WBC (test code = 1001) 11.5 K/UL RBC (test code = 1002) 5.53 M/UL HEMOGLOBIN (test code = 1003) 17.2 G/DL HEMATOCRIT (test code = 1004) 51.4 % MCV (test code = 1005) 92.9 fL MCH (test code = 1006) 31.1 PG MCHC (test code = 1007) 33.5 G/DL RDW (test code = 1038) 14.4 % NEUTROPHILS (test code = 1008) 53.0 % LYMPHOCYTES (test code = 1010) 38.8 % MONOCYTES (test code = 1011) 5.7 % EOSINOPHILS (test code = 1012) 1.6 % BASOPHILS (test code = 1013) 0.6 % IMMATURE GRANULOCYTES (test code = 1036) 0.3 % NUCLEATED RBCS (test code = 1065) 0.0 /100WBC'S PLATELET COUNT (test code = 1015) 350 K/UL ABSOLUTE NEUTROPHILS (test c ode = 1066) 6.10 K/UL ABSOLUTE LYMPHOCYTES (test c ode = 1067) 4.48 K/UL ABSOLUTE MONOCYTES (test cod e = 1068) 0.66 K/UL ABSOLUTE EOSINOPHILS (test c ode = 1040) 0.19 K/UL ABSOLUTE BASOPHILS (test cod e = 1069) 0.07 K/UL ABS IMMATURE GRANULOCYTES (t est code = 1020) 0.04 K/UL ABS NUCLEATED RBCS (test cod e = 01893) 0.00 K/UL Ben Wes[id number] 00:00:00* Test Item Value Reference Range Interpretation Comme nts ERYTHROPOIETIN (test code = 4836) 4.3 MIU/ML Ben WestbrookCBC W/AUTO [id number] 00:00:00* Test Item Value Reference Range Interpretation Comme nts WBC (test code = 1001) 11.5 K/UL RBC (test code = 1002) 5.53 M/UL HEMOGLOBIN (test code = 1003) 17.2 G/DL HEMATOCRIT (test code = 1004) 51.4 % MCV (test code = 1005) 92.9 fL MCH (test code = 1006) 31.1 PG MCHC (test code = 1007) 33.5 G/DL RDW (test code = 1038) 14.4 % NEUTROPHILS (test code = 1008) 53.0 % LYMPHOCYTES (test code = 1010) 38.8 % MONOCYTES (test code = 1011) 5.7 % EOSINOPHILS (test code = 1012) 1.6 % BASOPHILS (test code = 1013) 0.6 % IMMATURE GRANULOCYTES (test code = 1036) 0.3 % NUCLEATED RBCS (test code = 1065) 0.0 /100WBC'S PLATELET COUNT (test code = 1015) 350 K/UL ABSOLUTE NEUTROPHILS (test c ode = 1066) 6.10 K/UL ABSOLUTE LYMPHOCYTES (test c ode = 1067) 4.48 K/UL ABSOLUTE MONOCYTES (test cod e = 1068) 0.66 K/UL ABSOLUTE EOSINOPHILS (test c ode = 1040) 0.19 K/UL ABSOLUTE BASOPHILS (test cod e = 1069) 0.07 K/UL ABS IMMATURE GRANULOCYTES (t est code = 1020) 0.04 K/UL ABS NUCLEATED RBCS (test cod e = 55883) 0.00 K/UL Ben Osei [id number] 00:00:00* Test Item Value Reference Range Interpretation Comme nts ERYTHROPOIETIN (test code = 4836) 4.3 MIU/ML Ben Osei AustinCBC W/AUTO [id number] 00:00:00* Test Item Value Reference Range Interpretation Comme nts WBC (test code = 1001) 11.5 K/UL RBC (test code = 1002) 5.53 M/UL HEMOGLOBIN (test code = 1003) 17.2 G/DL HEMATOCRIT (test code = 1004) 51.4 % MCV (test code = 1005) 92.9 fL MCH (test code = 1006) 31.1 PG MCHC (test code = 1007) 33.5 G/DL RDW (test code = 1038) 14.4 % NEUTROPHILS (test code = 1008) 53.0 % LYMPHOCYTES (test code = 1010) 38.8 % MONOCYTES (test code = 1011) 5.7 % EOSINOPHILS (test code = 1012) 1.6 % BASOPHILS (test code = 1013) 0.6 % IMMATURE GRANULOCYTES (test code = 1036) 0.3 % NUCLEATED RBCS (test code = 1065) 0.0 /100WBC'S PLATELET COUNT (test code = 1015) 350 K/UL ABSOLUTE NEUTROPHILS (test c ode = 1066) 6.10 K/UL ABSOLUTE LYMPHOCYTES (test c ode = 1067) 4.48 K/UL ABSOLUTE MONOCYTES (test cod e = 1068) 0.66 K/UL ABSOLUTE EOSINOPHILS (test c ode = 1040) 0.19 K/UL ABSOLUTE BASOPHILS (test cod e = 1069) 0.07 K/UL ABS IMMATURE GRANULOCYTES (t est code = 1020) 0.04 K/UL ABS NUCLEATED RBCS (test cod e = 98262) 0.00 K/UL Ben We[id number] 00:00:00* Test Item Value Reference Range Interpretation Comme nts ERYTHROPOIETIN (test code = 4836) 4.3 MIU/ML Ben Osei AustinCBC W/AUTO [id number] 00:00:00* Test Item Value Reference Range Interpretation Comme nts WBC (test code = 1001) 11.5 K/UL RBC (test code = 1002) 5.53 M/UL HEMOGLOBIN (test code = 1003) 17.2 G/DL HEMATOCRIT (test code = 1004) 51.4 % MCV (test code = 1005) 92.9 fL MCH (test code = 1006) 31.1 PG MCHC (test code = 1007) 33.5 G/DL RDW (test code = 1038) 14.4 % NEUTROPHILS (test code = 1008) 53.0 % LYMPHOCYTES (test code = 1010) 38.8 % MONOCYTES (test code = 1011) 5.7 % EOSINOPHILS (test code = 1012) 1.6 % BASOPHILS (test code = 1013) 0.6 % IMMATURE GRANULOCYTES (test code = 1036) 0.3 % NUCLEATED RBCS (test code = 1065) 0.0 /100WBC'S PLATELET COUNT (test code = 1015) 350 K/UL ABSOLUTE NEUTROPHILS (test c ode = 1066) 6.10 K/UL ABSOLUTE LYMPHOCYTES (test c ode = 1067) 4.48 K/UL ABSOLUTE MONOCYTES (test cod e = 1068) 0.66 K/UL ABSOLUTE EOSINOPHILS (test c ode = 1040) 0.19 K/UL ABSOLUTE BASOPHILS (test cod e = 1069) 0.07 K/UL ABS IMMATURE GRANULOCYTES (t est code = 1020) 0.04 K/UL ABS NUCLEATED RBCS (test cod e = 81133) 0.00 K/UL Ben Osei [id number] 00:00:00* Test Item Value Reference Range Interpretation Comme nts ERYTHROPOIETIN (test code = 4836) 4.3 MIU/ML Ben Osei PietroCBC W/AUTO [id number] 00:00:00* Test Item Value Reference Range Interpretation Comme nts WBC (test code = 1001) 11.5 K/UL RBC (test code = 1002) 5.53 M/UL HEMOGLOBIN (test code = 1003) 17.2 G/DL HEMATOCRIT (test code = 1004) 51.4 % MCV (test code = 1005) 92.9 fL MCH (test code = 1006) 31.1 PG MCHC (test code = 1007) 33.5 G/DL RDW (test code = 1038) 14.4 % NEUTROPHILS (test code = 1008) 53.0 % LYMPHOCYTES (test code = 1010) 38.8 % MONOCYTES (test code = 1011) 5.7 % EOSINOPHILS (test code = 1012) 1.6 % BASOPHILS (test code = 1013) 0.6 % IMMATURE GRANULOCYTES (test code = 1036) 0.3 % NUCLEATED RBCS (test code = 1065) 0.0 /100WBC'S PLATELET COUNT (test code = 1015) 350 K/UL ABSOLUTE NEUTROPHILS (test c ode = 1066) 6.10 K/UL ABSOLUTE LYMPHOCYTES (test c ode = 1067) 4.48 K/UL ABSOLUTE MONOCYTES (test cod e = 1068) 0.66 K/UL ABSOLUTE EOSINOPHILS (test c ode = 1040) 0.19 K/UL ABSOLUTE BASOPHILS (test cod e = 1069) 0.07 K/UL ABS IMMATURE GRANULOCYTES (t est code = 1020) 0.04 K/UL ABS NUCLEATED RBCS (test cod e = 84397) 0.00 K/UL Ben W[id number] 00:00:00* Test Item Value Reference Range Interpretation Comme nts ERYTHROPOIETIN (test code = 4836) 4.3 MIU/ML Ben WestbrookCBC W/AUTO [id number] 00:00:00* Test Item Value Reference Range Interpretation Comme nts WBC (test code = 1001) 11.5 K/UL RBC (test code = 1002) 5.53 M/UL HEMOGLOBIN (test code = 1003) 17.2 G/DL HEMATOCRIT (test code = 1004) 51.4 % MCV (test code = 1005) 92.9 fL MCH (test code = 1006) 31.1 PG MCHC (test code = 1007) 33.5 G/DL RDW (test code = 1038) 14.4 % NEUTROPHILS (test code = 1008) 53.0 % LYMPHOCYTES (test code = 1010) 38.8 % MONOCYTES (test code = 1011) 5.7 % EOSINOPHILS (test code = 1012) 1.6 % BASOPHILS (test code = 1013) 0.6 % IMMATURE GRANULOCYTES (test code = 1036) 0.3 % NUCLEATED RBCS (test code = 1065) 0.0 /100WBC'S PLATELET COUNT (test code = 1015) 350 K/UL ABSOLUTE NEUTROPHILS (test c ode = 1066) 6.10 K/UL ABSOLUTE LYMPHOCYTES (test c ode = 1067) 4.48 K/UL ABSOLUTE MONOCYTES (test cod e = 1068) 0.66 K/UL ABSOLUTE EOSINOPHILS (test c ode = 1040) 0.19 K/UL ABSOLUTE BASOPHILS (test cod e = 1069) 0.07 K/UL ABS IMMATURE GRANULOCYTES (t est code = 1020) 0.04 K/UL ABS NUCLEATED RBCS (test cod e = 76080) 0.00 K/UL Ben We[id number] 00:00:00* Test Item Value Reference Range Interpretation Comme nts ERYTHROPOIETIN (test code = 4836) 4.3 MIU/ML Ben WestbrookCBC W/AUTO [id number] 00:00:00* Test Item Value Reference Range Interpretation Comme nts WBC (test code = 1001) 11.5 K/UL RBC (test code = 1002) 5.53 M/UL HEMOGLOBIN (test code = 1003) 17.2 G/DL HEMATOCRIT (test code = 1004) 51.4 % MCV (test code = 1005) 92.9 fL MCH (test code = 1006) 31.1 PG MCHC (test code = 1007) 33.5 G/DL RDW (test code = 1038) 14.4 % NEUTROPHILS (test code = 1008) 53.0 % LYMPHOCYTES (test code = 1010) 38.8 % MONOCYTES (test code = 1011) 5.7 % EOSINOPHILS (test code = 1012) 1.6 % BASOPHILS (test code = 1013) 0.6 % IMMATURE GRANULOCYTES (test code = 1036) 0.3 % NUCLEATED RBCS (test code = 1065) 0.0 /100WBC'S PLATELET COUNT (test code = 1015) 350 K/UL ABSOLUTE NEUTROPHILS (test c ode = 1066) 6.10 K/UL ABSOLUTE LYMPHOCYTES (test c ode = 1067) 4.48 K/UL ABSOLUTE MONOCYTES (test cod e = 1068) 0.66 K/UL ABSOLUTE EOSINOPHILS (test c ode = 1040) 0.19 K/UL ABSOLUTE BASOPHILS (test cod e = 1069) 0.07 K/UL ABS IMMATURE GRANULOCYTES (t est code = 1020) 0.04 K/UL ABS NUCLEATED RBCS (test cod e = 05210) 0.00 K/UL Ben F AustinGLIADIN AB, DEAMID. [id number] 02:39:48* Test Item Value Reference Range Interpretation Comme nts GLIADIN AB, DEAMID. IgA (test code = 201343) <1 U/ML <15 INTERPRETIVE INFORMATION INTERPRETATION RESULT NEGATIVE <15 U/ML POSITIVE >=15 U/ML TTG [id number] 02:39:48* Test Item Value Reference Range Interpretation Comme nts TTG IgA (test code = 20816) <1 U/ML <15 INTERPRETIVE INFORMATION INTERPRETATION RESULT NEGATIVE <15 U/ML POSITIVE >=15 U/ML UNLESS OTHERWISE INDICATED, ALL TESTING PERFORMED AT [facility] [address] [place] [address] MANUFACTURING PROJECT ENGINEER: JOHNATHON BARFIELD M.D. [place] NUMBER [id number] [facility] [place]. [id number] BINA NON-REFLEX TO [id number] 02:28:01* Test Item Value Reference Range Interpretation Comme nts ANTI-NUCLEAR ANTIBODIES (test code = 3506) NEGATIVE NEGATIVE METHODOLOGY IS I NDIRECT IMMUNOFLUORESCENT ASSAY (IFA) WITH HUMAN EPITHELIAL (HEP-2) CELL LINE SUBSTRATE. BINA NON-REFLEX TO [id number] 00:00:00* Test Item Value Reference Range Interpretation Comme nts ANTI-NUCLEAR ANTIBODIES (solo t code = 3506) NEGATIVE Ben F AustinGLIADIN AB, DEAMID. IgA [REFLEX]2023-03-24 00:00:00* Test Item Value Reference Range Interpretation Comme nts GLIADIN AB, DEAMID. IgA (solo t code = 329607) <1 U/ML Ben F AustinTTG IgA [REFLEX]2023-03-24 00:00:00* Test Item Value Reference Range Interpretation Comme nts TTG IgA (test code = 80315) <1 U/ML Ben F AustinANA NON-REFLEX TO [id number] 00:00:00* Test Item Value Reference Range Interpretation Comme nts ANTI-NUCLEAR ANTIBODIES (solo t code = 3506) NEGATIVE Ben F AustinGLIADIN AB, DEAMID. IgA [REFLEX]2023-03-24 00:00:00* Test Item Value Reference Range Interpretation Comme nts GLIADIN AB, DEAMID. IgA (solo t code = 590236) <1 U/ML Ben F AustinTTG IgA [REFLEX]2023-03-24 00:00:00* Test Item Value Reference Range Interpretation Comme nts TTG IgA (test code = 48668) <1 U/ML Ben F AustinANA NON-REFLEX TO [id number] 00:00:00* Test Item Value Reference Range Interpretation Comme nts ANTI-NUCLEAR ANTIBODIES (solo t code = 3506) NEGATIVE Ben F AustinGLIADIN AB, DEAMID. IgA [REFLEX]2023-03-24 00:00:00* Test Item Value Reference Range Interpretation Comme nts GLIADIN AB, DEAMID. IgA (solo t code = 674939) <1 U/ML Ben F AustinTTG IgA [REFLEX]2023-03-24 00:00:00* Test Item Value Reference Range Interpretation Comme nts TTG IgA (test code = 69002) <1 U/ML Ben F AustinANA NON-REFLEX TO [id number] 00:00:00* Test Item Value Reference Range Interpretation Comme nts ANTI-NUCLEAR ANTIBODIES (solo t code = 3506) NEGATIVE Ben F AustinGLIADIN AB, DEAMID. IgA [REFLEX]2023-03-24 00:00:00* Test Item Value Reference Range Interpretation Comme nts GLIADIN AB, DEAMID. IgA (solo t code = 633023) <1 U/ML Ben F AustinTTG IgA [REFLEX]2023-03-24 00:00:00* Test Item Value Reference Range Interpretation Comme nts TTG IgA (test code = 69481) <1 U/ML Ben F AustinANA NON-REFLEX TO [id number] 00:00:00* Test Item Value Reference Range Interpretation Comme nts ANTI-NUCLEAR ANTIBODIES (solo t code = 3506) NEGATIVE Ebn F AustinGLIADIN AB, DEAMID. IgA [REFLEX]2023-03-24 00:00:00* Test Item Value Reference Range Interpretation Comme nts GLIADIN AB, DEAMID. IgA (solo t code = 461579) <1 U/ML Ben F AustinTTG IgA [REFLEX]2023-03-24 00:00:00* Test Item Value Reference Range Interpretation Comme nts TTG IgA (test code = 38591) <1 U/ML Ben F AustinANA NON-REFLEX TO [id number] 00:00:00* Test Item Value Reference Range Interpretation Comme nts ANTI-NUCLEAR ANTIBODIES (solo t code = 3506) NEGATIVE Ben F AustinGLIADIN AB, DEAMID. IgA [REFLEX]2023-03-24 00:00:00* Test Item Value Reference Range Interpretation Comme nts GLIADIN AB, DEAMID. IgA (solo t code = 428808) <1 U/ML Ben F AustinTTG IgA [REFLEX]2023-03-24 00:00:00* Test Item Value Reference Range Interpretation Comme nts TTG IgA (test code = 43085) <1 U/ML Ben F AustinANA NON-REFLEX TO [id number] 00:00:00* Test Item Value Reference Range Interpretation Comme nts ANTI-NUCLEAR ANTIBODIES (solo t code = 3506) NEGATIVE Ben F AustinGLIADIN AB, DEAMID. IgA [REFLEX]2023-03-24 00:00:00* Test Item Value Reference Range Interpretation Comme nts GLIADIN AB, DEAMID. IgA (solo t code = 356047) <1 U/ML Ben F AustinTTG IgA [REFLEX]2023-03-24 00:00:00* Test Item Value Reference Range Interpretation Comme nts TTG IgA (test code = 48268) <1 U/ML Ben F AustinANA NON-REFLEX TO [id number] 00:00:00* Test Item Value Reference Range Interpretation Comme nts ANTI-NUCLEAR ANTIBODIES (solo t code = 3506) NEGATIVE Ben F AustinGLIADIN AB, DEAMID. IgA [REFLEX]2023-03-24 00:00:00* Test Item Value Reference Range Interpretation Comme nts GLIADIN AB, DEAMID. IgA (solo t code = 629848) <1 U/ML Ben F AustinTTG IgA [REFLEX]2023-03-24 00:00:00* Test Item Value Reference Range Interpretation Comme nts TTG IgA (test code = 28637) <1 U/ML Ben F AustinANA NON-REFLEX TO [id number] 00:00:00* Test Item Value Reference Range Interpretation Comme nts ANTI-NUCLEAR ANTIBODIES (solo t code = 3506) NEGATIVE Ben F AustinGLIADIN AB, DEAMID. IgA [REFLEX]2023-03-24 00:00:00* Test Item Value Reference Range Interpretation Comme nts GLIADIN AB, DEAMID. IgA (solo t code = 215772) <1 U/ML Ben F AustinTTG IgA [REFLEX]2023-03-24 00:00:00* Test Item Value Reference Range Interpretation Comme nts TTG IgA (test code = 33261) <1 U/ML Ben F AustinANA NON-REFLEX TO [id number] 00:00:00* Test Item Value Reference Range Interpretation Comme nts ANTI-NUCLEAR ANTIBODIES (solo t code = 3506) NEGATIVE Ben F AustinGLIADIN AB, DEAMID. IgA [REFLEX]2023-03-24 00:00:00* Test Item Value Reference Range Interpretation Comme nts GLIADIN AB, DEAMID. IgA (solo t code = 188751) <1 U/ML Ben F AustinTTG IgA [REFLEX]2023-03-24 00:00:00* Test Item Value Reference Range Interpretation Comme nts TTG IgA (test code = 32176) <1 U/ML Ben F AustinANA NON-REFLEX TO [id number] 00:00:00* Test Item Value Reference Range Interpretation Comme nts ANTI-NUCLEAR ANTIBODIES (solo t code = 3506) NEGATIVE Ben F AustinGLIADIN AB, DEAMID. IgA [REFLEX]2023-03-24 00:00:00* Test Item Value Reference Range Interpretation Comme nts GLIADIN AB, DEAMID. IgA (solo t code = 490838) <1 U/ML Ben F AustinTTG IgA [REFLEX]2023-03-24 00:00:00* Test Item Value Reference Range Interpretation Comme nts TTG IgA (test code = 59838) <1 U/ML Ben F AustinANA NON-REFLEX TO [id number] 00:00:00* Test Item Value Reference Range Interpretation Comme nts ANTI-NUCLEAR ANTIBODIES (solo t code = 3506) NEGATIVE Ben F AustinGLIADIN AB, DEAMID. IgA [REFLEX]2023-03-24 00:00:00* Test Item Value Reference Range Interpretation Comme nts GLIADIN AB, DEAMID. IgA (solo t code = 463433) <1 U/ML Ben F AustinTTG IgA [REFLEX]2023-03-24 00:00:00* Test Item Value Reference Range Interpretation Comme nts TTG IgA (test code = 44514) <1 U/ML Ben F AustinANA NON-REFLEX TO [id number] 00:00:00* Test Item Value Reference Range Interpretation Comme nts ANTI-NUCLEAR ANTIBODIES (solo t code = 3506) NEGATIVE Ben F AustinGLIADIN AB, DEAMID. IgA [REFLEX]2023-03-24 00:00:00* Test Item Value Reference Range Interpretation Comme nts GLIADIN AB, DEAMID. IgA (solo t code = 499197) <1 U/ML Ben F AustinTTG IgA [REFLEX]2023-03-24 00:00:00* Test Item Value Reference Range Interpretation Comme nts TTG IgA (test code = 36185) <1 U/ML Ben F AustinANA NON-REFLEX TO [id number] 00:00:00* Test Item Value Reference Range Interpretation Comme nts ANTI-NUCLEAR ANTIBODIES (solo t code = 3506) NEGATIVE Ben F AustinGLIADIN AB, DEAMID. IgA [REFLEX]2023-03-24 00:00:00* Test Item Value Reference Range Interpretation Comme nts GLIADIN AB, DEAMID. IgA (solo t code = 803668) <1 U/ML Ben F AustinTTG IgA [REFLEX]2023-03-24 00:00:00* Test Item Value Reference Range Interpretation Comme nts TTG IgA (test code = 03297) <1 U/ML Ben F AustinANA NON-REFLEX TO [id number] 00:00:00* Test Item Value Reference Range Interpretation Comme nts ANTI-NUCLEAR ANTIBODIES (solo t code = 3506) NEGATIVE Ben F AustinGLIADIN AB, DEAMID. IgA [REFLEX]2023-03-24 00:00:00* Test Item Value Reference Range Interpretation Comme nts GLIADIN AB, DEAMID. IgA (solo t code = 678121) <1 U/ML Ben F AustinTTG IgA [REFLEX]2023-03-24 00:00:00* Test Item Value Reference Range Interpretation Comme nts TTG IgA (test code = 60022) <1 U/ML Ben F AustinANA NON-REFLEX TO [id number] 00:00:00* Test Item Value Reference Range Interpretation Comme nts ANTI-NUCLEAR ANTIBODIES (solo t code = 3506) NEGATIVE Ben F AustinGLIADIN AB, DEAMID. IgA [REFLEX]2023-03-24 00:00:00* Test Item Value Reference Range Interpretation Comme nts GLIADIN AB, DEAMID. IgA (solo t code = 483708) <1 U/ML Ben F AustinTTG IgA [REFLEX]2023-03-24 00:00:00* Test Item Value Reference Range Interpretation Comme nts TTG IgA (test code = 57502) <1 U/ML Ben F AustinANA NON-REFLEX TO [id number] 00:00:00* Test Item Value Reference Range Interpretation Comme nts ANTI-NUCLEAR ANTIBODIES (solo t code = 3506) NEGATIVE Ben F AustinGLIADIN AB, DEAMID. IgA [REFLEX]2023-03-24 00:00:00* Test Item Value Reference Range Interpretation Comme nts GLIADIN AB, DEAMID. IgA (solo t code = 652078) <1 U/ML Ben F AustinTTG IgA [REFLEX]2023-03-24 00:00:00* Test Item Value Reference Range Interpretation Comme nts TTG IgA (test code = 78803) <1 U/ML Ben F AustinANA NON-REFLEX TO [id number] 00:00:00* Test Item Value Reference Range Interpretation Comme nts ANTI-NUCLEAR ANTIBODIES (solo t code = 3506) NEGATIVE Ben F AustinGLIADIN AB, DEAMID. IgA [REFLEX]2023-03-24 00:00:00* Test Item Value Reference Range Interpretation Comme nts GLIADIN AB, DEAMID. IgA (solo t code = 579412) <1 U/ML Ben F AustinTTG IgA [REFLEX]2023-03-24 00:00:00* Test Item Value Reference Range Interpretation Comme nts TTG IgA (test code = 87653) <1 U/ML Ben F AustinANA NON-REFLEX TO [id number] 00:00:00* Test Item Value Reference Range Interpretation Comme nts ANTI-NUCLEAR ANTIBODIES (solo t code = 3506) NEGATIVE Ben F AustinGLIADIN AB, DEAMID. IgA [REFLEX]2023-03-24 00:00:00* Test Item Value Reference Range Interpretation Comme nts GLIADIN AB, DEAMID. IgA (solo t code = 053739) <1 U/ML Ben ZieglerG IgA [REFLEX]2023-03-24 00:00:00* Test Item Value Reference Range Interpretation Comme nts TTG IgA (test code = 51072) <1 U/ML Ben WestbrookTSH, THIRD [id number] 05:59:35* Test Item Value Reference Range Interpretation Comme nts TSH, THIRD GENERATION (test code = 2821) 1.490 UIU/ML 0.400-4.100 CELIAC DISEASE REFLEX [id number] 04:02:46* Test Item Value Reference Range Interpretation Comme nts IMMUNOGLOBULIN A (IgA) (test code = 2753) 314 MG/DL 70-400 COMPREHENSIVE METABOLIC [id number] 03:24:29* Test Item Value Reference Range Interpretation Comme nts GLUCOSE (test code = 2217) 143 MG/DL 70-99 H BUN (test code = 2208) 9 MG/DL 8-23 CREATININE (test code = 2214) 0.74 MG/DL 0.60-1.30 eGFR (2020 CKD-EPI) (test code = 49703) 86 ML/MIN/1.73 >60 CALC BUN/CREAT (test code = 2235) 12 RATIO 6-28 SODIUM (test code = 2231) 140 MEQ/L 133-146 POTASSIUM (test code = 2228) 4.7 MEQ/L 3.5-5.4 CHLORIDE (test code = 2215) 101 MEQ/L 95-107 CARBON DIOXIDE (test code = 2206) 27 MEQ/L 19-31 CALCIUM (test code = 2209) 9.9 MG/DL 8.5-10.5 PROTEIN, TOTAL (test code = 2229) 6.9 G/DL 6.1-8.3 ALBUMIN (test code = 2201) 4.1 G/DL 3.5-5.2 CALC GLOBULIN (test code = 2240) 2.8 G/DL 1.9-3.7 CALC A/G RATIO (test code = 2234) 1.5 RATIO 1.0-2.6 BILIRUBIN, TOTAL (test code = 2206) 0.3 MG/DL See_Comment [Automated me ssage] The system which generated this result transmitted reference range: <=1.2. The reference range was not used to interpret this result as normal/abnormal. ALKALINE PHOSPHATASE (test code = 2204) 136 U/L 40-142 AST (test code = 2218) 19 U/L 9-40 ALT (test code = 2219) 15 U/L 5-40 HEMOGLOBIN [id number] 03:22:31* Test Item Value Reference Range Interpretation Comme nts HEMOGLOBIN A1c (test code = 57302) 6.2 % 4.2-5.6 H [employer] GUIDELINES FOR HGB A1C: PREDIABETES/INCREASED RISK . . . . . . . 5.7-6.4% DIAGNOSIS OF DIABETES . . . . . . . . . >=6.5% WITH CONFIRMATION OR APPROPRIATE SYMPTOMS NOTE: ASSAY MAY BE AFFECTED BY HEMOGLOBINOPATHIES (SICKLE CELL ANEMIA, S-C DISEASE, OTHERS) OR ARTIFICIALLY LOWERED BY DECREASED RED CELL SURVIVAL (HEMOLYTIC ANEMIAS, BLOOD LOSS, ETC.). CONSIDER ALTERNATE TESTING OR LABORATORY CONSULTATION. CBC W/AUTO DIFF WITH [id number] 02:35:42* Test Item Value Reference Range Interpretation Comme nts WBC (test code = 1001) 12.1 K/UL 3.5-11.0 H RBC (test code = 1002) 5.60 M/UL 3.80-5.40 H HEMOGLOBIN (test code = 1003) 17.4 G/DL 11.5-15.5 H HEMATOCRIT (test code = 1004) 52.0 % 34.0-45.0 H MCV (test code = 1005) 92.9 fL 80.0-99.0 MCH (test code = 1006) 31.1 PG 25.0-33.0 MCHC (test code = 1007) 33.5 G/DL 31.0-36.0 RDW (test code = 1038) 14.2 % 11.5-15.0 NEUTROPHILS (test code = 1008) 57.1 % LYMPHOCYTES (test code = 1010) 34.8 % MONOCYTES (test code = 1011) 6.0 % EOSINOPHILS (test code = 1012) 1.2 % BASOPHILS (test code = 1013) 0.7 % IMMATURE GRANULOCYTES (test code = 1036) 0.2 % NUCLEATED RBCS (test code = 1065) 0.0 /100 WBC'S See_Comment [Automated [employer] ge] The system which generated this result transmitted reference range: 0.0. The reference range was not used to interpret this result as normal/abnormal. PLATELET COUNT (test code = 1015) 343 K/UL 130-400 ABSOLUTE NEUTROPHILS (test code = 1066) 6.93 K/UL 1.50-7.50 ABSOLUTE LYMPHOCYTES (test code = 1067) 4.22 K/UL 1.00-4.00 H ABSOLUTE MONOCYTES (test code = 1068) 0.73 K/UL 0.20-1.00 ABSOLUTE EOSINOPHILS (test code = 1040) 0.15 K/UL 0.00-0.50 ABSOLUTE BASOPHILS (test code = 1069) 0.09 K/UL 0.00-0.20 ABS IMMATURE GRANULOCYTES (test code = 1020) 0.02 K/UL 0.00-0.10 ABS NUCLEATED RBCS (test code = 80185) 0.00 K/UL 0.00-0.11 COMPREHENSIVE METABOLIC [id number] 00:00:00* Test Item Value Reference Range Interpretation Comme nts GLUCOSE (test code = 2217) 143 MG/DL BUN (test code = 2208) 9 MG/DL CREATININE (test code = 2214) 0.74 MG/DL eGFR (2020 CKD-EPI) (test co de = 39494) 86 ML/MIN/1.73 CALC BUN/CREAT (test code = 2235) 12 RATIO SODIUM (test code = 2231) 140 MEQ/L POTASSIUM (test code = 2228) 4.7 MEQ/L CHLORIDE (test code = 2215) 101 MEQ/L CARBON DIOXIDE (test code = 2206) 27 MEQ/L CALCIUM (test code = 2209) 9.9 MG/DL PROTEIN, TOTAL (test code = 2229) 6.9 G/DL ALBUMIN (test code = 2201) 4.1 G/DL CALC GLOBULIN (test code = 2240) 2.8 G/DL CALC A/G RATIO (test code = 2234) 1.5 RATIO BILIRUBIN, TOTAL (test code = 2207) 0.3 MG/DL ALKALINE PHOSPHATASE (test code = 2204) 136 U/L AST (test code = 2218) 19 U/L ALT (test code = 2219) 15 U/L Ben WestbrookHEMOGLOBIN [id number] 00:00:00* Test Item Value Reference Range Interpretation Comme kiko HEMOGLOBIN A1c (test code = 44862) 6.2 % Ben MackH, THIRD [id number] 00:00:00* Test Item Value Reference Range Interpretation Comme nts TSH, THIRD GENERATION (test code = 2821) 1.490 UIU/ML Ben WestbrookCBC W/AUTO [id number] 00:00:00* Test Item Value Reference Range Interpretation Comme nts WBC (test code = 1001) 12.1 K/UL RBC (test code = 1002) 5.60 M/UL HEMOGLOBIN (test code = 1003) 17.4 G/DL HEMATOCRIT (test code = 1004) 52.0 % MCV (test code = 1005) 92.9 fL MCH (test code = 1006) 31.1 PG MCHC (test code = 1007) 33.5 G/DL RDW (test code = 1038) 14.2 % NEUTROPHILS (test code = 1008) 57.1 % LYMPHOCYTES (test code = 1010) 34.8 % MONOCYTES (test code = 1011) 6.0 % EOSINOPHILS (test code = 1012) 1.2 % BASOPHILS (test code = 1013) 0.7 % IMMATURE GRANULOCYTES (test code = 1036) 0.2 % NUCLEATED RBCS (test code = 1065) 0.0 /100WBC'S PLATELET COUNT (test code = 1015) 343 K/UL ABSOLUTE NEUTROPHILS (test c ode = 1066) 6.93 K/UL ABSOLUTE LYMPHOCYTES (test c ode = 1067) 4.22 K/UL ABSOLUTE MONOCYTES (test cod e = 1068) 0.73 K/UL ABSOLUTE EOSINOPHILS (test c ode = 1040) 0.15 K/UL ABSOLUTE BASOPHILS (test cod e = 1069) 0.09 K/UL ABS IMMATURE GRANULOCYTES (t est code = 1020) 0.02 K/UL ABS NUCLEATED RBCS (test cod e = 00067) 0.00 K/UL Ben WestbrookCELIAC DISEASE REFLEX [id number] 00:00:00* Test Item Value Reference Range Interpretation Comme nts IMMUNOGLOBULIN A (IgA) (test code = 2753) 314 MG/DL Ben WestbrookCOMPREHENSIVE METABOLIC [id number] 00:00:00* Test Item Value Reference Range Interpretation Comme nts GLUCOSE (test code = 2217) 143 MG/DL BUN (test code = 2208) 9 MG/DL CREATININE (test code = 2214) 0.74 MG/DL eGFR (2020 CKD-EPI) (test co de = 26643) 86 ML/MIN/1.73 CALC BUN/CREAT (test code = 2235) 12 RATIO SODIUM (test code = 2231) 140 MEQ/L POTASSIUM (test code = 2228) 4.7 MEQ/L CHLORIDE (test code = 2215) 101 MEQ/L CARBON DIOXIDE (test code = 2206) 27 MEQ/L CALCIUM (test code = 2209) 9.9 MG/DL PROTEIN, TOTAL (test code = 2229) 6.9 G/DL ALBUMIN (test code = 2201) 4.1 G/DL CALC GLOBULIN (test code = 2240) 2.8 G/DL CALC A/G RATIO (test code = 2234) 1.5 RATIO BILIRUBIN, TOTAL (test code = 2207) 0.3 MG/DL ALKALINE PHOSPHATASE (test code = 2204) 136 U/L AST (test code = 2218) 19 U/L ALT (test code = 2219) 15 U/L Ben WestbrookHEMOGLOBIN [id number] 00:00:00* Test Item Value Reference Range Interpretation Comme kiko HEMOGLOBIN A1c (test code = 16574) 6.2 % Ben WestbrookTSH, THIRD [id number] 00:00:00* Test Item Value Reference Range Interpretation Comme [facility] TSH, THIRD GENERATION (test code = 2821) 1.490 UIU/ML Ben WestbrookCBC W/AUTO [id number] 00:00:00* Test Item Value Reference Range Interpretation Comme nts WBC (test code = 1001) 12.1 K/UL RBC (test code = 1002) 5.60 M/UL HEMOGLOBIN (test code = 1003) 17.4 G/DL HEMATOCRIT (test code = 1004) 52.0 % MCV (test code = 1005) 92.9 fL MCH (test code = 1006) 31.1 PG MCHC (test code = 1007) 33.5 G/DL RDW (test code = 1038) 14.2 % NEUTROPHILS (test code = 1008) 57.1 % LYMPHOCYTES (test code = 1010) 34.8 % MONOCYTES (test code = 1011) 6.0 % EOSINOPHILS (test code = 1012) 1.2 % BASOPHILS (test code = 1013) 0.7 % IMMATURE GRANULOCYTES (test code = 1036) 0.2 % NUCLEATED RBCS (test code = 1065) 0.0 /100WBC'S PLATELET COUNT (test code = 1015) 343 K/UL ABSOLUTE NEUTROPHILS (test c ode = 1066) 6.93 K/UL ABSOLUTE LYMPHOCYTES (test c ode = 1067) 4.22 K/UL ABSOLUTE MONOCYTES (test cod e = 1068) 0.73 K/UL ABSOLUTE EOSINOPHILS (test c ode = 1040) 0.15 K/UL ABSOLUTE BASOPHILS (test cod e = 1069) 0.09 K/UL ABS IMMATURE GRANULOCYTES (t est code = 1020) 0.02 K/UL ABS NUCLEATED RBCS (test cod e = 32568) 0.00 K/UL Ben Oesi AustinCELIAC DISEASE REFLEX [id number] 00:00:00* Test Item Value Reference Range Interpretation Comme nts IMMUNOGLOBULIN A (IgA) (test code = 2753) 314 MG/DL Ben Osei AustinCOMPREHENSIVE METABOLIC [id number] 00:00:00* Test Item Value Reference Range Interpretation Comme nts GLUCOSE (test code = 2217) 143 MG/DL BUN (test code = 2208) 9 MG/DL CREATININE (test code = 2214) 0.74 MG/DL eGFR (2020 CKD-EPI) (test co de = 93028) 86 ML/MIN/1.73 CALC BUN/CREAT (test code = 2235) 12 RATIO SODIUM (test code = 2231) 140 MEQ/L POTASSIUM (test code = 2228) 4.7 MEQ/L CHLORIDE (test code = 2215) 101 MEQ/L CARBON DIOXIDE (test code = 2206) 27 MEQ/L CALCIUM (test code = 2209) 9.9 MG/DL PROTEIN, TOTAL (test code = 2229) 6.9 G/DL ALBUMIN (test code = 2201) 4.1 G/DL CALC GLOBULIN (test code = 2240) 2.8 G/DL CALC A/G RATIO (test code = 2234) 1.5 RATIO BILIRUBIN, TOTAL (test code = 2207) 0.3 MG/DL ALKALINE PHOSPHATASE (test code = 2204) 136 U/L AST (test code = 2218) 19 U/L ALT (test code = 2219) 15 U/L Ben WestbrookHEMOGLOBIN [id number] 00:00:00* Test Item Value Reference Range Interpretation Comme nts HEMOGLOBIN A1c (test code = 06241) 6.2 % Ben WestbrookTSH, THIRD [id number] 00:00:00* Test Item Value Reference Range Interpretation Comme nts TSH, THIRD GENERATION (test code = 2821) 1.490 UIU/ML Ben WestbrookCBC W/AUTO [id number] 00:00:00* Test Item Value Reference Range Interpretation Comme nts WBC (test code = 1001) 12.1 K/UL RBC (test code = 1002) 5.60 M/UL HEMOGLOBIN (test code = 1003) 17.4 G/DL HEMATOCRIT (test code = 1004) 52.0 % MCV (test code = 1005) 92.9 fL MCH (test code = 1006) 31.1 PG MCHC (test code = 1007) 33.5 G/DL RDW (test code = 1038) 14.2 % NEUTROPHILS (test code = 1008) 57.1 % LYMPHOCYTES (test code = 1010) 34.8 % MONOCYTES (test code = 1011) 6.0 % EOSINOPHILS (test code = 1012) 1.2 % BASOPHILS (test code = 1013) 0.7 % IMMATURE GRANULOCYTES (test code = 1036) 0.2 % NUCLEATED RBCS (test code = 1065) 0.0 /100WBC'S PLATELET COUNT (test code = 1015) 343 K/UL ABSOLUTE NEUTROPHILS (test c ode = 1066) 6.93 K/UL ABSOLUTE LYMPHOCYTES (test c ode = 1067) 4.22 K/UL ABSOLUTE MONOCYTES (test cod e = 1068) 0.73 K/UL ABSOLUTE EOSINOPHILS (test c ode = 1040) 0.15 K/UL ABSOLUTE BASOPHILS (test cod e = 1069) 0.09 K/UL ABS IMMATURE GRANULOCYTES (t est code = 1020) 0.02 K/UL ABS NUCLEATED RBCS (test cod e = 21141) 0.00 K/UL Ben WestbrookCELIAC DISEASE REFLEX [id number] 00:00:00* Test Item Value Reference Range Interpretation Comme nts IMMUNOGLOBULIN A (IgA) (test code = 2753) 314 MG/DL Ben WestbrookCOMPREHENSIVE METABOLIC [id number] 00:00:00* Test Item Value Reference Range Interpretation Comme nts GLUCOSE (test code = 2217) 143 MG/DL BUN (test code = 2208) 9 MG/DL CREATININE (test code = 2214) 0.74 MG/DL eGFR (2020 CKD-EPI) (test co de = 87664) 86 ML/MIN/1.73 CALC BUN/CREAT (test code = 2235) 12 RATIO SODIUM (test code = 2231) 140 MEQ/L POTASSIUM (test code = 2228) 4.7 MEQ/L CHLORIDE (test code = 2215) 101 MEQ/L CARBON DIOXIDE (test code = 2206) 27 MEQ/L CALCIUM (test code = 2209) 9.9 MG/DL PROTEIN, TOTAL (test code = 2229) 6.9 G/DL ALBUMIN (test code = 2201) 4.1 G/DL CALC GLOBULIN (test code = 2240) 2.8 G/DL CALC A/G RATIO (test code = 2234) 1.5 RATIO BILIRUBIN, TOTAL (test code = 2207) 0.3 MG/DL ALKALINE PHOSPHATASE (test code = 2204) 136 U/L AST (test code = 2218) 19 U/L ALT (test code = 2219) 15 U/L Ben WestbrookHEMOGLOBIN [id number] 00:00:00* Test Item Value Reference Range Interpretation Comme kiko HEMOGLOBIN A1c (test code = 19316) 6.2 % Ben WestbrookTSH, THIRD [id number] 00:00:00* Test Item Value Reference Range Interpretation Comme kiko TSH, THIRD GENERATION (test code = 2821) 1.490 UIU/ML Ben WestbrookCBC W/AUTO [id number] 00:00:00* Test Item Value Reference Range Interpretation Comme nts WBC (test code = 1001) 12.1 K/UL RBC (test code = 1002) 5.60 M/UL HEMOGLOBIN (test code = 1003) 17.4 G/DL HEMATOCRIT (test code = 1004) 52.0 % MCV (test code = 1005) 92.9 fL MCH (test code = 1006) 31.1 PG MCHC (test code = 1007) 33.5 G/DL RDW (test code = 1038) 14.2 % NEUTROPHILS (test code = 1008) 57.1 % LYMPHOCYTES (test code = 1010) 34.8 % MONOCYTES (test code = 1011) 6.0 % EOSINOPHILS (test code = 1012) 1.2 % BASOPHILS (test code = 1013) 0.7 % IMMATURE GRANULOCYTES (test code = 1036) 0.2 % NUCLEATED RBCS (test code = 1065) 0.0 /100WBC'S PLATELET COUNT (test code = 1015) 343 K/UL ABSOLUTE NEUTROPHILS (test c ode = 1066) 6.93 K/UL ABSOLUTE LYMPHOCYTES (test c ode = 1067) 4.22 K/UL ABSOLUTE MONOCYTES (test cod e = 1068) 0.73 K/UL ABSOLUTE EOSINOPHILS (test c ode = 1040) 0.15 K/UL ABSOLUTE BASOPHILS (test cod e = 1069) 0.09 K/UL ABS IMMATURE GRANULOCYTES (t est code = 1020) 0.02 K/UL ABS NUCLEATED RBCS (test cod e = 65216) 0.00 K/UL Ben Osei AustinCELIAC DISEASE REFLEX [id number] 00:00:00* Test Item Value Reference Range Interpretation Comme nts IMMUNOGLOBULIN A (IgA) (test code = 2753) 314 MG/DL Ben F AustinCOMPREHENSIVE METABOLIC [id number] 00:00:00* Test Item Value Reference Range Interpretation Comme nts GLUCOSE (test code = 2217) 143 MG/DL BUN (test code = 2208) 9 MG/DL CREATININE (test code = 2214) 0.74 MG/DL eGFR (2020 CKD-EPI) (test co de = 01659) 86 ML/MIN/1.73 CALC BUN/CREAT (test code = 2235) 12 RATIO SODIUM (test code = 2231) 140 MEQ/L POTASSIUM (test code = 2228) 4.7 MEQ/L CHLORIDE (test code = 2215) 101 MEQ/L CARBON DIOXIDE (test code = 2206) 27 MEQ/L CALCIUM (test code = 2209) 9.9 MG/DL PROTEIN, TOTAL (test code = 2229) 6.9 G/DL ALBUMIN (test code = 2201) 4.1 G/DL CALC GLOBULIN (test code = 2240) 2.8 G/DL CALC A/G RATIO (test code = 2234) 1.5 RATIO BILIRUBIN, TOTAL (test code = 2207) 0.3 MG/DL ALKALINE PHOSPHATASE (test code = 2204) 136 U/L AST (test code = 2218) 19 U/L ALT (test code = 2219) 15 U/L Ben WestbrookHEMOGLOBIN [id number] 00:00:00* Test Item Value Reference Range Interpretation Comme nts HEMOGLOBIN A1c (test code = 37452) 6.2 % Ben WestbrookTSH, THIRD [id number] 00:00:00* Test Item Value Reference Range Interpretation Comme nts TSH, THIRD GENERATION (test code = 2821) 1.490 UIU/ML Ben WestbrookCBC W/AUTO [id number] 00:00:00* Test Item Value Reference Range Interpretation Comme nts WBC (test code = 1001) 12.1 K/UL RBC (test code = 1002) 5.60 M/UL HEMOGLOBIN (test code = 1003) 17.4 G/DL HEMATOCRIT (test code = 1004) 52.0 % MCV (test code = 1005) 92.9 fL MCH (test code = 1006) 31.1 PG MCHC (test code = 1007) 33.5 G/DL RDW (test code = 1038) 14.2 % NEUTROPHILS (test code = 1008) 57.1 % LYMPHOCYTES (test code = 1010) 34.8 % MONOCYTES (test code = 1011) 6.0 % EOSINOPHILS (test code = 1012) 1.2 % BASOPHILS (test code = 1013) 0.7 % IMMATURE GRANULOCYTES (test code = 1036) 0.2 % NUCLEATED RBCS (test code = 1065) 0.0 /100WBC'S PLATELET COUNT (test code = 1015) 343 K/UL ABSOLUTE NEUTROPHILS (test c ode = 1066) 6.93 K/UL ABSOLUTE LYMPHOCYTES (test c ode = 1067) 4.22 K/UL ABSOLUTE MONOCYTES (test cod e = 1068) 0.73 K/UL ABSOLUTE EOSINOPHILS (test c ode = 1040) 0.15 K/UL ABSOLUTE BASOPHILS (test cod e = 1069) 0.09 K/UL ABS IMMATURE GRANULOCYTES (t est code = 1020) 0.02 K/UL ABS NUCLEATED RBCS (test cod e = 89183) 0.00 K/UL Ben WestbrookCELIAC DISEASE REFLEX [id number] 00:00:00* Test Item Value Reference Range Interpretation Comme nts IMMUNOGLOBULIN A (IgA) (test code = 2753) 314 MG/DL Ben WestbrookCOMPREHENSIVE METABOLIC [id number] 00:00:00* Test Item Value Reference Range Interpretation Comme nts GLUCOSE (test code = 2217) 143 MG/DL BUN (test code = 2208) 9 MG/DL CREATININE (test code = 2214) 0.74 MG/DL eGFR (2020 CKD-EPI) (test co de = 57913) 86 ML/MIN/1.73 CALC BUN/CREAT (test code = 2235) 12 RATIO SODIUM (test code = 2231) 140 MEQ/L POTASSIUM (test code = 2228) 4.7 MEQ/L CHLORIDE (test code = 2215) 101 MEQ/L CARBON DIOXIDE (test code = 2206) 27 MEQ/L CALCIUM (test code = 2209) 9.9 MG/DL PROTEIN, TOTAL (test code = 2229) 6.9 G/DL ALBUMIN (test code = 2201) 4.1 G/DL CALC GLOBULIN (test code = 2240) 2.8 G/DL CALC A/G RATIO (test code = 2234) 1.5 RATIO BILIRUBIN, TOTAL (test code = 2207) 0.3 MG/DL ALKALINE PHOSPHATASE (test code = 2204) 136 U/L AST (test code = 2218) 19 U/L ALT (test code = 2219) 15 U/L Ben WestbrookHEMOGLOBIN [id number] 00:00:00* Test Item Value Reference Range Interpretation Comme kiko HEMOGLOBIN A1c (test code = 67125) 6.2 % Ben WestbrookTSH, THIRD [id number] 00:00:00* Test Item Value Reference Range Interpretation Comme kiko TSH, THIRD GENERATION (test code = 2821) 1.490 UIU/ML Ben WestbrookCBC W/AUTO [id number] 00:00:00* Test Item Value Reference Range Interpretation Comme nts WBC (test code = 1001) 12.1 K/UL RBC (test code = 1002) 5.60 M/UL HEMOGLOBIN (test code = 1003) 17.4 G/DL HEMATOCRIT (test code = 1004) 52.0 % MCV (test code = 1005) 92.9 fL MCH (test code = 1006) 31.1 PG MCHC (test code = 1007) 33.5 G/DL RDW (test code = 1038) 14.2 % NEUTROPHILS (test code = 1008) 57.1 % LYMPHOCYTES (test code = 1010) 34.8 % MONOCYTES (test code = 1011) 6.0 % EOSINOPHILS (test code = 1012) 1.2 % BASOPHILS (test code = 1013) 0.7 % IMMATURE GRANULOCYTES (test code = 1036) 0.2 % NUCLEATED RBCS (test code = 1065) 0.0 /100WBC'S PLATELET COUNT (test code = 1015) 343 K/UL ABSOLUTE NEUTROPHILS (test c ode = 1066) 6.93 K/UL ABSOLUTE LYMPHOCYTES (test c ode = 1067) 4.22 K/UL ABSOLUTE MONOCYTES (test cod e = 1068) 0.73 K/UL ABSOLUTE EOSINOPHILS (test c ode = 1040) 0.15 K/UL ABSOLUTE BASOPHILS (test cod e = 1069) 0.09 K/UL ABS IMMATURE GRANULOCYTES (t est code = 1020) 0.02 K/UL ABS NUCLEATED RBCS (test cod e = 96133) 0.00 K/UL Ben Osei AustinCELIAC DISEASE REFLEX [id number] 00:00:00* Test Item Value Reference Range Interpretation Comme nts IMMUNOGLOBULIN A (IgA) (test code = 2753) 314 MG/DL Ben F AustinCOMPREHENSIVE METABOLIC [id number] 00:00:00* Test Item Value Reference Range Interpretation Comme nts GLUCOSE (test code = 2217) 143 MG/DL BUN (test code = 2208) 9 MG/DL CREATININE (test code = 2214) 0.74 MG/DL eGFR (2020 CKD-EPI) (test co de = 50070) 86 ML/MIN/1.73 CALC BUN/CREAT (test code = 2235) 12 RATIO SODIUM (test code = 2231) 140 MEQ/L POTASSIUM (test code = 2228) 4.7 MEQ/L CHLORIDE (test code = 2215) 101 MEQ/L CARBON DIOXIDE (test code = 2206) 27 MEQ/L CALCIUM (test code = 2209) 9.9 MG/DL PROTEIN, TOTAL (test code = 2229) 6.9 G/DL ALBUMIN (test code = 2201) 4.1 G/DL CALC GLOBULIN (test code = 2240) 2.8 G/DL CALC A/G RATIO (test code = 2234) 1.5 RATIO BILIRUBIN, TOTAL (test code = 2207) 0.3 MG/DL ALKALINE PHOSPHATASE (test code = 2204) 136 U/L AST (test code = 2218) 19 U/L ALT (test code = 2219) 15 U/L Ben WestbrookHEMOGLOBIN [id number] 00:00:00* Test Item Value Reference Range Interpretation Comme [facility] HEMOGLOBIN A1c (test code = 30979) 6.2 % Ben WestbrookTSH, THIRD [id number] 00:00:00* Test Item Value Reference Range Interpretation Comme [facility] TSH, THIRD GENERATION (test code = 2821) 1.490 UIU/ML Ben WestbrookCBC W/AUTO [id number] 00:00:00* Test Item Value Reference Range Interpretation Comme [facility] WBC (test code = 1001) 12.1 K/UL RBC (test code = 1002) 5.60 M/UL HEMOGLOBIN (test code = 1003) 17.4 G/DL HEMATOCRIT (test code = 1004) 52.0 % MCV (test code = 1005) 92.9 fL MCH (test code = 1006) 31.1 PG MCHC (test code = 1007) 33.5 G/DL RDW (test code = 1038) 14.2 % NEUTROPHILS (test code = 1008) 57.1 % LYMPHOCYTES (test code = 1010) 34.8 % MONOCYTES (test code = 1011) 6.0 % EOSINOPHILS (test code = 1012) 1.2 % BASOPHILS (test code = 1013) 0.7 % IMMATURE GRANULOCYTES (test code = 1036) 0.2 % NUCLEATED RBCS (test code = 1065) 0.0 /100WBC'S PLATELET COUNT (test code = 1015) 343 K/UL ABSOLUTE NEUTROPHILS (test c ode = 1066) 6.93 K/UL ABSOLUTE LYMPHOCYTES (test c ode = 1067) 4.22 K/UL ABSOLUTE MONOCYTES (test cod e = 1068) 0.73 K/UL ABSOLUTE EOSINOPHILS (test c ode = 1040) 0.15 K/UL ABSOLUTE BASOPHILS (test cod e = 1069) 0.09 K/UL ABS IMMATURE GRANULOCYTES (t est code = 1020) 0.02 K/UL ABS NUCLEATED RBCS (test cod e = 00367) 0.00 K/UL Ben Sea PietroCELIAC DISEASE REFLEX [id number] 00:00:00* Test Item Value Reference Range Interpretation Comme nts IMMUNOGLOBULIN A (IgA) (test code = 2753) 314 MG/DL Ben Sea PietroCOMPREHENSIVE METABOLIC [id number] 00:00:00* Test Item Value Reference Range Interpretation Comme nts GLUCOSE (test code = 2217) 143 MG/DL BUN (test code = 2208) 9 MG/DL CREATININE (test code = 2214) 0.74 MG/DL eGFR (2020 CKD-EPI) (test co de = 29027) 86 ML/MIN/1.73 CALC BUN/CREAT (test code = 2235) 12 RATIO SODIUM (test code = 2231) 140 MEQ/L POTASSIUM (test code = 2228) 4.7 MEQ/L CHLORIDE (test code = 2215) 101 MEQ/L CARBON DIOXIDE (test code = 2206) 27 MEQ/L CALCIUM (test code = 2209) 9.9 MG/DL PROTEIN, TOTAL (test code = 2229) 6.9 G/DL ALBUMIN (test code = 2201) 4.1 G/DL CALC GLOBULIN (test code = 2240) 2.8 G/DL CALC A/G RATIO (test code = 2234) 1.5 RATIO BILIRUBIN, TOTAL (test code = 2207) 0.3 MG/DL ALKALINE PHOSPHATASE (test code = 2204) 136 U/L AST (test code = 2218) 19 U/L ALT (test code = 2219) 15 U/L Ben Sea PietroHEMOGLOBIN [id number] 00:00:00* Test Item Value Reference Range Interpretation Comme nts HEMOGLOBIN A1c (test code = 71534) 6.2 % Ben Matos THIRD [id number] 00:00:00* Test Item Value Reference Range Interpretation Comme nts TSH, THIRD GENERATION (test code = 2821) 1.490 UIU/ML Ben WestbrookCBC W/AUTO [id number] 00:00:00* Test Item Value Reference Range Interpretation Comme nts WBC (test code = 1001) 12.1 K/UL RBC (test code = 1002) 5.60 M/UL HEMOGLOBIN (test code = 1003) 17.4 G/DL HEMATOCRIT (test code = 1004) 52.0 % MCV (test code = 1005) 92.9 fL MCH (test code = 1006) 31.1 PG MCHC (test code = 1007) 33.5 G/DL RDW (test code = 1038) 14.2 % NEUTROPHILS (test code = 1008) 57.1 % LYMPHOCYTES (test code = 1010) 34.8 % MONOCYTES (test code = 1011) 6.0 % EOSINOPHILS (test code = 1012) 1.2 % BASOPHILS (test code = 1013) 0.7 % IMMATURE GRANULOCYTES (test code = 1036) 0.2 % NUCLEATED RBCS (test code = 1065) 0.0 /100WBC'S PLATELET COUNT (test code = 1015) 343 K/UL ABSOLUTE NEUTROPHILS (test c ode = 1066) 6.93 K/UL ABSOLUTE LYMPHOCYTES (test c ode = 1067) 4.22 K/UL ABSOLUTE MONOCYTES (test cod e = 1068) 0.73 K/UL ABSOLUTE EOSINOPHILS (test c ode = 1040) 0.15 K/UL ABSOLUTE BASOPHILS (test cod e = 1069) 0.09 K/UL ABS IMMATURE GRANULOCYTES (t est code = 1020) 0.02 K/UL ABS NUCLEATED RBCS (test cod e = 90545) 0.00 K/UL Ben WestbrookCELIAC DISEASE REFLEX [id number] 00:00:00* Test Item Value Reference Range Interpretation Comme nts IMMUNOGLOBULIN A (IgA) (test code = 2753) 314 MG/DL Ben WestbrookCOMPREHENSIVE METABOLIC [id number] 00:00:00* Test Item Value Reference Range Interpretation Comme nts GLUCOSE (test code = 2217) 143 MG/DL BUN (test code = 2208) 9 MG/DL CREATININE (test code = 2214) 0.74 MG/DL eGFR (2020 CKD-EPI) (test co de = 34238) 86 ML/MIN/1.73 CALC BUN/CREAT (test code = 2235) 12 RATIO SODIUM (test code = 2231) 140 MEQ/L POTASSIUM (test code = 2228) 4.7 MEQ/L CHLORIDE (test code = 2215) 101 MEQ/L CARBON DIOXIDE (test code = 2206) 27 MEQ/L CALCIUM (test code = 2209) 9.9 MG/DL PROTEIN, TOTAL (test code = 2229) 6.9 G/DL ALBUMIN (test code = 2201) 4.1 G/DL CALC GLOBULIN (test code = 2240) 2.8 G/DL CALC A/G RATIO (test code = 2234) 1.5 RATIO BILIRUBIN, TOTAL (test code = 7) 0.3 MG/DL ALKALINE PHOSPHATASE (test code = 4) 136 U/L AST (test code = 2218) 19 U/L ALT (test code = 2219) 15 U/L Ben WestbrookHEMOGLOBIN [id number] 00:00:00* Test Item Value Reference Range Interpretation Comme nts HEMOGLOBIN A1c (test code = 15518) 6.2 % Ben WestbrookTSH, THIRD [id number] 00:00:00* Test Item Value Reference Range Interpretation Comme [facility] TSH, THIRD GENERATION (test code = 2821) 1.490 UIU/ML Ben WestbrookCBC W/AUTO [id number] 00:00:00* Test Item Value Reference Range Interpretation Comme nts WBC (test code = 1001) 12.1 K/UL RBC (test code = 1002) 5.60 M/UL HEMOGLOBIN (test code = 1003) 17.4 G/DL HEMATOCRIT (test code = 1004) 52.0 % MCV (test code = 1005) 92.9 fL MCH (test code = 1006) 31.1 PG MCHC (test code = 1007) 33.5 G/DL RDW (test code = 1038) 14.2 % NEUTROPHILS (test code = 1008) 57.1 % LYMPHOCYTES (test code = 1010) 34.8 % MONOCYTES (test code = 1011) 6.0 % EOSINOPHILS (test code = 1012) 1.2 % BASOPHILS (test code = 1013) 0.7 % IMMATURE GRANULOCYTES (test code = 1036) 0.2 % NUCLEATED RBCS (test code = 1065) 0.0 /100WBC'S PLATELET COUNT (test code = 1015) 343 K/UL ABSOLUTE NEUTROPHILS (test c ode = 1066) 6.93 K/UL ABSOLUTE LYMPHOCYTES (test c ode = 1067) 4.22 K/UL ABSOLUTE MONOCYTES (test cod e = 1068) 0.73 K/UL ABSOLUTE EOSINOPHILS (test c ode = 1040) 0.15 K/UL ABSOLUTE BASOPHILS (test cod e = 1069) 0.09 K/UL ABS IMMATURE GRANULOCYTES (t est code = 1020) 0.02 K/UL ABS NUCLEATED RBCS (test cod e = 92516) 0.00 K/UL Ben WestbrookCELIAC DISEASE REFLEX [id number] 00:00:00* Test Item Value Reference Range Interpretation Comme nts IMMUNOGLOBULIN A (IgA) (test code = 2753) 314 MG/DL Ben WestbrookCOMPREHENSIVE METABOLIC [id number] 00:00:00* Test Item Value Reference Range Interpretation Comme nts GLUCOSE (test code = 2217) 143 MG/DL BUN (test code = 2208) 9 MG/DL CREATININE (test code = 2214) 0.74 MG/DL eGFR (2020 CKD-EPI) (test co de = 26835) 86 ML/MIN/1.73 CALC BUN/CREAT (test code = 2235) 12 RATIO SODIUM (test code = 2231) 140 MEQ/L POTASSIUM (test code = 2228) 4.7 MEQ/L CHLORIDE (test code = 2215) 101 MEQ/L CARBON DIOXIDE (test code = 2206) 27 MEQ/L CALCIUM (test code = 2209) 9.9 MG/DL PROTEIN, TOTAL (test code = 2229) 6.9 G/DL ALBUMIN (test code = 2201) 4.1 G/DL CALC GLOBULIN (test code = 2240) 2.8 G/DL CALC A/G RATIO (test code = 2234) 1.5 RATIO BILIRUBIN, TOTAL (test code = 2207) 0.3 MG/DL ALKALINE PHOSPHATASE (test code = 2204) 136 U/L AST (test code = 2218) 19 U/L ALT (test code = 2219) 15 U/L Ben WestbrookHEMOGLOBIN [id number] 00:00:00* Test Item Value Reference Range Interpretation Comme kiko HEMOGLOBIN A1c (test code = 05728) 6.2 % Ben MackH, THIRD [id number] 00:00:00* Test Item Value Reference Range Interpretation Comme nts TSH, THIRD GENERATION (test code = 2821) 1.490 UIU/ML Ben WsetbrookCBC W/AUTO [id number] 00:00:00* Test Item Value Reference Range Interpretation Comme nts WBC (test code = 1001) 12.1 K/UL RBC (test code = 1002) 5.60 M/UL HEMOGLOBIN (test code = 1003) 17.4 G/DL HEMATOCRIT (test code = 1004) 52.0 % MCV (test code = 1005) 92.9 fL MCH (test code = 1006) 31.1 PG MCHC (test code = 1007) 33.5 G/DL RDW (test code = 1038) 14.2 % NEUTROPHILS (test code = 1008) 57.1 % LYMPHOCYTES (test code = 1010) 34.8 % MONOCYTES (test code = 1011) 6.0 % EOSINOPHILS (test code = 1012) 1.2 % BASOPHILS (test code = 1013) 0.7 % IMMATURE GRANULOCYTES (test code = 1036) 0.2 % NUCLEATED RBCS (test code = 1065) 0.0 /100WBC'S PLATELET COUNT (test code = 1015) 343 K/UL ABSOLUTE NEUTROPHILS (test c ode = 1066) 6.93 K/UL ABSOLUTE LYMPHOCYTES (test c ode = 1067) 4.22 K/UL ABSOLUTE MONOCYTES (test cod e = 1068) 0.73 K/UL ABSOLUTE EOSINOPHILS (test c ode = 1040) 0.15 K/UL ABSOLUTE BASOPHILS (test cod e = 1069) 0.09 K/UL ABS IMMATURE GRANULOCYTES (t est code = 1020) 0.02 K/UL ABS NUCLEATED RBCS (test cod e = 66971) 0.00 K/UL Ben WestbrookCELIAC DISEASE REFLEX [id number] 00:00:00* Test Item Value Reference Range Interpretation Comme nts IMMUNOGLOBULIN A (IgA) (test code = 2753) 314 MG/DL Ben WestbrookCOMPREHENSIVE METABOLIC [id number] 00:00:00* Test Item Value Reference Range Interpretation Comme nts GLUCOSE (test code = 2217) 143 MG/DL BUN (test code = 2208) 9 MG/DL CREATININE (test code = 2214) 0.74 MG/DL eGFR (2020 CKD-EPI) (test co de = 89661) 86 ML/MIN/1.73 CALC BUN/CREAT (test code = 2235) 12 RATIO SODIUM (test code = 2231) 140 MEQ/L POTASSIUM (test code = 2228) 4.7 MEQ/L CHLORIDE (test code = 2215) 101 MEQ/L CARBON DIOXIDE (test code = 2206) 27 MEQ/L CALCIUM (test code = 2209) 9.9 MG/DL PROTEIN, TOTAL (test code = 2229) 6.9 G/DL ALBUMIN (test code = 2201) 4.1 G/DL CALC GLOBULIN (test code = 2240) 2.8 G/DL CALC A/G RATIO (test code = 2234) 1.5 RATIO BILIRUBIN, TOTAL (test code = 2207) 0.3 MG/DL ALKALINE PHOSPHATASE (test code = 2204) 136 U/L AST (test code = 2218) 19 U/L ALT (test code = 2219) 15 U/L Ben WestbrookHEMOGLOBIN [id number] 00:00:00* Test Item Value Reference Range Interpretation Comme kiko HEMOGLOBIN A1c (test code = 25405) 6.2 % Ben WestbrookTSH, THIRD [id number] 00:00:00* Test Item Value Reference Range Interpretation Comme nts TSH, THIRD GENERATION (test code = 2821) 1.490 UIU/ML Ben WestbrookCBC W/AUTO [id number] 00:00:00* Test Item Value Reference Range Interpretation Comme nts WBC (test code = 1001) 12.1 K/UL RBC (test code = 1002) 5.60 M/UL HEMOGLOBIN (test code = 1003) 17.4 G/DL HEMATOCRIT (test code = 1004) 52.0 % MCV (test code = 1005) 92.9 fL MCH (test code = 1006) 31.1 PG MCHC (test code = 1007) 33.5 G/DL RDW (test code = 1038) 14.2 % NEUTROPHILS (test code = 1008) 57.1 % LYMPHOCYTES (test code = 1010) 34.8 % MONOCYTES (test code = 1011) 6.0 % EOSINOPHILS (test code = 1012) 1.2 % BASOPHILS (test code = 1013) 0.7 % IMMATURE GRANULOCYTES (test code = 1036) 0.2 % NUCLEATED RBCS (test code = 1065) 0.0 /100WBC'S PLATELET COUNT (test code = 1015) 343 K/UL ABSOLUTE NEUTROPHILS (test c ode = 1066) 6.93 K/UL ABSOLUTE LYMPHOCYTES (test c ode = 1067) 4.22 K/UL ABSOLUTE MONOCYTES (test cod e = 1068) 0.73 K/UL ABSOLUTE EOSINOPHILS (test c ode = 1040) 0.15 K/UL ABSOLUTE BASOPHILS (test cod e = 1069) 0.09 K/UL ABS IMMATURE GRANULOCYTES (t est code = 1020) 0.02 K/UL ABS NUCLEATED RBCS (test cod e = 05452) 0.00 K/UL Ben Osei AustinCELIAC DISEASE REFLEX [id number] 00:00:00* Test Item Value Reference Range Interpretation Comme nts IMMUNOGLOBULIN A (IgA) (test code = 2753) 314 MG/DL Ben WestbrookCOMPREHENSIVE METABOLIC [id number] 00:00:00* Test Item Value Reference Range Interpretation Comme nts GLUCOSE (test code = 2217) 143 MG/DL BUN (test code = 2208) 9 MG/DL CREATININE (test code = 2214) 0.74 MG/DL eGFR (2020 CKD-EPI) (test co de = 76843) 86 ML/MIN/1.73 CALC BUN/CREAT (test code = 2235) 12 RATIO SODIUM (test code = 2231) 140 MEQ/L POTASSIUM (test code = 2228) 4.7 MEQ/L CHLORIDE (test code = 2215) 101 MEQ/L CARBON DIOXIDE (test code = 2206) 27 MEQ/L CALCIUM (test code = 2209) 9.9 MG/DL PROTEIN, TOTAL (test code = 2229) 6.9 G/DL ALBUMIN (test code = 2201) 4.1 G/DL CALC GLOBULIN (test code = 2240) 2.8 G/DL CALC A/G RATIO (test code = 2234) 1.5 RATIO BILIRUBIN, TOTAL (test code = 2207) 0.3 MG/DL ALKALINE PHOSPHATASE (test code = 2204) 136 U/L AST (test code = 2218) 19 U/L ALT (test code = 2219) 15 U/L Ben WestbrookHEMOGLOBIN [id number] 00:00:00* Test Item Value Reference Range Interpretation Comme nts HEMOGLOBIN A1c (test code = 02419) 6.2 % Ben WestbrookTSH, THIRD [id number] 00:00:00* Test Item Value Reference Range Interpretation Comme nts TSH, THIRD GENERATION (test code = 2821) 1.490 UIU/ML Ben WestbrookCBC W/AUTO [id number] 00:00:00* Test Item Value Reference Range Interpretation Comme nts WBC (test code = 1001) 12.1 K/UL RBC (test code = 1002) 5.60 M/UL HEMOGLOBIN (test code = 1003) 17.4 G/DL HEMATOCRIT (test code = 1004) 52.0 % MCV (test code = 1005) 92.9 fL MCH (test code = 1006) 31.1 PG MCHC (test code = 1007) 33.5 G/DL RDW (test code = 1038) 14.2 % NEUTROPHILS (test code = 1008) 57.1 % LYMPHOCYTES (test code = 1010) 34.8 % MONOCYTES (test code = 1011) 6.0 % EOSINOPHILS (test code = 1012) 1.2 % BASOPHILS (test code = 1013) 0.7 % IMMATURE GRANULOCYTES (test code = 1036) 0.2 % NUCLEATED RBCS (test code = 1065) 0.0 /100WBC'S PLATELET COUNT (test code = 1015) 343 K/UL ABSOLUTE NEUTROPHILS (test c ode = 1066) 6.93 K/UL ABSOLUTE LYMPHOCYTES (test c ode = 1067) 4.22 K/UL ABSOLUTE MONOCYTES (test cod e = 1068) 0.73 K/UL ABSOLUTE EOSINOPHILS (test c ode = 1040) 0.15 K/UL ABSOLUTE BASOPHILS (test cod e = 1069) 0.09 K/UL ABS IMMATURE GRANULOCYTES (t est code = 1020) 0.02 K/UL ABS NUCLEATED RBCS (test cod e = 87167) 0.00 K/UL Ben WestbrookCELIAC DISEASE REFLEX [id number] 00:00:00* Test Item Value Reference Range Interpretation Comme nts IMMUNOGLOBULIN A (IgA) (test code = 2753) 314 MG/DL Ben WestbrookCOMPREHENSIVE METABOLIC [id number] 00:00:00* Test Item Value Reference Range Interpretation Comme nts GLUCOSE (test code = 2217) 143 MG/DL BUN (test code = 2208) 9 MG/DL CREATININE (test code = 2214) 0.74 MG/DL eGFR (2020 CKD-EPI) (test co de = 35499) 86 ML/MIN/1.73 CALC BUN/CREAT (test code = 2235) 12 RATIO SODIUM (test code = 2231) 140 MEQ/L POTASSIUM (test code = 2228) 4.7 MEQ/L CHLORIDE (test code = 2215) 101 MEQ/L CARBON DIOXIDE (test code = 2206) 27 MEQ/L CALCIUM (test code = 2209) 9.9 MG/DL PROTEIN, TOTAL (test code = 2229) 6.9 G/DL ALBUMIN (test code = 2201) 4.1 G/DL CALC GLOBULIN (test code = 2240) 2.8 G/DL CALC A/G RATIO (test code = 2234) 1.5 RATIO BILIRUBIN, TOTAL (test code = 2207) 0.3 MG/DL ALKALINE PHOSPHATASE (test code = 2204) 136 U/L AST (test code = 2218) 19 U/L ALT (test code = 2219) 15 U/L Ben WestbrookHEMOGLOBIN [id number] 00:00:00* Test Item Value Reference Range Interpretation Comme kiko HEMOGLOBIN A1c (test code = 14000) 6.2 % Ben WestbrookTSH, THIRD [id number] 00:00:00* Test Item Value Reference Range Interpretation Comme kiko TSH, THIRD GENERATION (test code = 2821) 1.490 UIU/ML Ben WestbrookCBC W/AUTO [id number] 00:00:00* Test Item Value Reference Range Interpretation Comme kiko WBC (test code = 1001) 12.1 K/UL RBC (test code = 1002) 5.60 M/UL HEMOGLOBIN (test code = 1003) 17.4 G/DL HEMATOCRIT (test code = 1004) 52.0 % MCV (test code = 1005) 92.9 fL MCH (test code = 1006) 31.1 PG MCHC (test code = 1007) 33.5 G/DL RDW (test code = 1038) 14.2 % NEUTROPHILS (test code = 1008) 57.1 % LYMPHOCYTES (test code = 1010) 34.8 % MONOCYTES (test code = 1011) 6.0 % EOSINOPHILS (test code = 1012) 1.2 % BASOPHILS (test code = 1013) 0.7 % IMMATURE GRANULOCYTES (test code = 1036) 0.2 % NUCLEATED RBCS (test code = 1065) 0.0 /100WBC'S PLATELET COUNT (test code = 1015) 343 K/UL ABSOLUTE NEUTROPHILS (test c ode = 1066) 6.93 K/UL ABSOLUTE LYMPHOCYTES (test c ode = 1067) 4.22 K/UL ABSOLUTE MONOCYTES (test cod e = 1068) 0.73 K/UL ABSOLUTE EOSINOPHILS (test c ode = 1040) 0.15 K/UL ABSOLUTE BASOPHILS (test cod e = 1069) 0.09 K/UL ABS IMMATURE GRANULOCYTES (t est code = 1020) 0.02 K/UL ABS NUCLEATED RBCS (test cod e = 73280) 0.00 K/UL Ben Osei AustinCELIAC DISEASE REFLEX [id number] 00:00:00* Test Item Value Reference Range Interpretation Comme nts IMMUNOGLOBULIN A (IgA) (test code = 2753) 314 MG/DL Ben F AustinCOMPREHENSIVE METABOLIC [id number] 00:00:00* Test Item Value Reference Range Interpretation Comme nts GLUCOSE (test code = 2217) 143 MG/DL BUN (test code = 2208) 9 MG/DL CREATININE (test code = 2214) 0.74 MG/DL eGFR (2020 CKD-EPI) (test co de = 40195) 86 ML/MIN/1.73 CALC BUN/CREAT (test code = 2235) 12 RATIO SODIUM (test code = 2231) 140 MEQ/L POTASSIUM (test code = 2228) 4.7 MEQ/L CHLORIDE (test code = 2215) 101 MEQ/L CARBON DIOXIDE (test code = 2206) 27 MEQ/L CALCIUM (test code = 2209) 9.9 MG/DL PROTEIN, TOTAL (test code = 2229) 6.9 G/DL ALBUMIN (test code = 2201) 4.1 G/DL CALC GLOBULIN (test code = 2240) 2.8 G/DL CALC A/G RATIO (test code = 2234) 1.5 RATIO BILIRUBIN, TOTAL (test code = 2207) 0.3 MG/DL ALKALINE PHOSPHATASE (test code = 2204) 136 U/L AST (test code = 2218) 19 U/L ALT (test code = 2219) 15 U/L Ben WestbrookHEMOGLOBIN [id number] 00:00:00* Test Item Value Reference Range Interpretation Comme nts HEMOGLOBIN A1c (test code = 51537) 6.2 % Ben WestbrookTSH, THIRD [id number] 00:00:00* Test Item Value Reference Range Interpretation Comme nts TSH, THIRD GENERATION (test code = 2821) 1.490 UIU/ML Ben WestbrookCBC W/AUTO [id number] 00:00:00* Test Item Value Reference Range Interpretation Comme nts WBC (test code = 1001) 12.1 K/UL RBC (test code = 1002) 5.60 M/UL HEMOGLOBIN (test code = 1003) 17.4 G/DL HEMATOCRIT (test code = 1004) 52.0 % MCV (test code = 1005) 92.9 fL MCH (test code = 1006) 31.1 PG MCHC (test code = 1007) 33.5 G/DL RDW (test code = 1038) 14.2 % NEUTROPHILS (test code = 1008) 57.1 % LYMPHOCYTES (test code = 1010) 34.8 % MONOCYTES (test code = 1011) 6.0 % EOSINOPHILS (test code = 1012) 1.2 % BASOPHILS (test code = 1013) 0.7 % IMMATURE GRANULOCYTES (test code = 1036) 0.2 % NUCLEATED RBCS (test code = 1065) 0.0 /100WBC'S PLATELET COUNT (test code = 1015) 343 K/UL ABSOLUTE NEUTROPHILS (test c ode = 1066) 6.93 K/UL ABSOLUTE LYMPHOCYTES (test c ode = 1067) 4.22 K/UL ABSOLUTE MONOCYTES (test cod e = 1068) 0.73 K/UL ABSOLUTE EOSINOPHILS (test c ode = 1040) 0.15 K/UL ABSOLUTE BASOPHILS (test cod e = 1069) 0.09 K/UL ABS IMMATURE GRANULOCYTES (t est code = 1020) 0.02 K/UL ABS NUCLEATED RBCS (test cod e = 71348) 0.00 K/UL Ben WestbrookCELIAC DISEASE REFLEX [id number] 00:00:00* Test Item Value Reference Range Interpretation Comme nts IMMUNOGLOBULIN A (IgA) (test code = 2753) 314 MG/DL Ben WestbrookCOMPREHENSIVE METABOLIC [id number] 00:00:00* Test Item Value Reference Range Interpretation Comme nts GLUCOSE (test code = 2217) 143 MG/DL BUN (test code = 2208) 9 MG/DL CREATININE (test code = 2214) 0.74 MG/DL eGFR (2020 CKD-EPI) (test co de = 45003) 86 ML/MIN/1.73 CALC BUN/CREAT (test code = 2235) 12 RATIO SODIUM (test code = 2231) 140 MEQ/L POTASSIUM (test code = 2228) 4.7 MEQ/L CHLORIDE (test code = 2215) 101 MEQ/L CARBON DIOXIDE (test code = 2206) 27 MEQ/L CALCIUM (test code = 2209) 9.9 MG/DL PROTEIN, TOTAL (test code = 2229) 6.9 G/DL ALBUMIN (test code = 2201) 4.1 G/DL CALC GLOBULIN (test code = 2240) 2.8 G/DL CALC A/G RATIO (test code = 2234) 1.5 RATIO BILIRUBIN, TOTAL (test code = 2207) 0.3 MG/DL ALKALINE PHOSPHATASE (test code = 2204) 136 U/L AST (test code = 2218) 19 U/L ALT (test code = 2219) 15 U/L Ben WestbrookHEMOGLOBIN [id number] 00:00:00* Test Item Value Reference Range Interpretation Comme kiko HEMOGLOBIN A1c (test code = 62736) 6.2 % Ben WestbrookTSH, THIRD [id number] 00:00:00* Test Item Value Reference Range Interpretation Comme kiko TSH, THIRD GENERATION (test code = 2821) 1.490 UIU/ML Ben F AustinCBC W/AUTO [id number] 00:00:00* Test Item Value Reference Range Interpretation Comme nts WBC (test code = 1001) 12.1 K/UL RBC (test code = 1002) 5.60 M/UL HEMOGLOBIN (test code = 1003) 17.4 G/DL HEMATOCRIT (test code = 1004) 52.0 % MCV (test code = 1005) 92.9 fL MCH (test code = 1006) 31.1 PG MCHC (test code = 1007) 33.5 G/DL RDW (test code = 1038) 14.2 % NEUTROPHILS (test code = 1008) 57.1 % LYMPHOCYTES (test code = 1010) 34.8 % MONOCYTES (test code = 1011) 6.0 % EOSINOPHILS (test code = 1012) 1.2 % BASOPHILS (test code = 1013) 0.7 % IMMATURE GRANULOCYTES (test code = 1036) 0.2 % NUCLEATED RBCS (test code = 1065) 0.0 /100WBC'S PLATELET COUNT (test code = 1015) 343 K/UL ABSOLUTE NEUTROPHILS (test c ode = 1066) 6.93 K/UL ABSOLUTE LYMPHOCYTES (test c ode = 1067) 4.22 K/UL ABSOLUTE MONOCYTES (test cod e = 1068) 0.73 K/UL ABSOLUTE EOSINOPHILS (test c ode = 1040) 0.15 K/UL ABSOLUTE BASOPHILS (test cod e = 1069) 0.09 K/UL ABS IMMATURE GRANULOCYTES (t est code = 1020) 0.02 K/UL ABS NUCLEATED RBCS (test cod e = 96804) 0.00 K/UL Ben Osei AustinCELIAC DISEASE REFLEX [id number] 00:00:00* Test Item Value Reference Range Interpretation Comme nts IMMUNOGLOBULIN A (IgA) (test code = 2753) 314 MG/DL Ben Osei AustinCOMPREHENSIVE METABOLIC [id number] 00:00:00* Test Item Value Reference Range Interpretation Comme nts GLUCOSE (test code = 2217) 143 MG/DL BUN (test code = 2208) 9 MG/DL CREATININE (test code = 2214) 0.74 MG/DL eGFR (2020 CKD-EPI) (test co de = 72734) 86 ML/MIN/1.73 CALC BUN/CREAT (test code = 2235) 12 RATIO SODIUM (test code = 2231) 140 MEQ/L POTASSIUM (test code = 2228) 4.7 MEQ/L CHLORIDE (test code = 2215) 101 MEQ/L CARBON DIOXIDE (test code = 2206) 27 MEQ/L CALCIUM (test code = 2209) 9.9 MG/DL PROTEIN, TOTAL (test code = 2229) 6.9 G/DL ALBUMIN (test code = 2201) 4.1 G/DL CALC GLOBULIN (test code = 2240) 2.8 G/DL CALC A/G RATIO (test code = 2234) 1.5 RATIO BILIRUBIN, TOTAL (test code = 2207) 0.3 MG/DL ALKALINE PHOSPHATASE (test code = 220) 136 U/L AST (test code = 2218) 19 U/L ALT (test code = 2219) 15 U/L Ben WestbrookHEMOGLOBIN [id number] 00:00:00* Test Item Value Reference Range Interpretation Comme [facility] HEMOGLOBIN A1c (test code = 20000) 6.2 % Ben WestbrookTSH, THIRD [id number] 00:00:00* Test Item Value Reference Range Interpretation Comme [facility] TSH, THIRD GENERATION (test code = 2821) 1.490 UIU/ML Ben WestbrookCBC W/AUTO [id number] 00:00:00* Test Item Value Reference Range Interpretation Comme [facility] WBC (test code = 1001) 12.1 K/UL RBC (test code = 1002) 5.60 M/UL HEMOGLOBIN (test code = 1003) 17.4 G/DL HEMATOCRIT (test code = 1004) 52.0 % MCV (test code = 1005) 92.9 fL MCH (test code = 1006) 31.1 PG MCHC (test code = 1007) 33.5 G/DL RDW (test code = 1038) 14.2 % NEUTROPHILS (test code = 1008) 57.1 % LYMPHOCYTES (test code = 1010) 34.8 % MONOCYTES (test code = 1011) 6.0 % EOSINOPHILS (test code = 1012) 1.2 % BASOPHILS (test code = 1013) 0.7 % IMMATURE GRANULOCYTES (test code = 1036) 0.2 % NUCLEATED RBCS (test code = 1065) 0.0 /100WBC'S PLATELET COUNT (test code = 1015) 343 K/UL ABSOLUTE NEUTROPHILS (test c ode = 1066) 6.93 K/UL ABSOLUTE LYMPHOCYTES (test c ode = 1067) 4.22 K/UL ABSOLUTE MONOCYTES (test cod e = 1068) 0.73 K/UL ABSOLUTE EOSINOPHILS (test c ode = 1040) 0.15 K/UL ABSOLUTE BASOPHILS (test cod e = 1069) 0.09 K/UL ABS IMMATURE GRANULOCYTES (t est code = 1020) 0.02 K/UL ABS NUCLEATED RBCS (test cod e = 53173) 0.00 K/UL Ben WestbrookCELIAC DISEASE REFLEX [id number] 00:00:00* Test Item Value Reference Range Interpretation Comme nts IMMUNOGLOBULIN A (IgA) (test code = 2753) 314 MG/DL Ben WestbrookCOMPREHENSIVE METABOLIC [id number] 00:00:00* Test Item Value Reference Range Interpretation Comme nts GLUCOSE (test code = 2217) 143 MG/DL BUN (test code = 2208) 9 MG/DL CREATININE (test code = 2214) 0.74 MG/DL eGFR (2020 CKD-EPI) (test co de = 80977) 86 ML/MIN/1.73 CALC BUN/CREAT (test code = 2235) 12 RATIO SODIUM (test code = 2231) 140 MEQ/L POTASSIUM (test code = 2228) 4.7 MEQ/L CHLORIDE (test code = 2215) 101 MEQ/L CARBON DIOXIDE (test code = 2206) 27 MEQ/L CALCIUM (test code = 2209) 9.9 MG/DL PROTEIN, TOTAL (test code = 2229) 6.9 G/DL ALBUMIN (test code = 2201) 4.1 G/DL CALC GLOBULIN (test code = 2240) 2.8 G/DL CALC A/G RATIO (test code = 2234) 1.5 RATIO BILIRUBIN, TOTAL (test code = 2207) 0.3 MG/DL ALKALINE PHOSPHATASE (test code = 2204) 136 U/L AST (test code = 2218) 19 U/L ALT (test code = 2219) 15 U/L Ben WestbrookHEMOGLOBIN [id number] 00:00:00* Test Item Value Reference Range Interpretation Comme nts HEMOGLOBIN A1c (test code = 27442) 6.2 % Ben Matos, THIRD [id number] 00:00:00* Test Item Value Reference Range Interpretation Comme nts TSH, THIRD GENERATION (test code = 2821) 1.490 UIU/ML Ben WestbrookCBC W/AUTO [id number] 00:00:00* Test Item Value Reference Range Interpretation Comme nts WBC (test code = 1001) 12.1 K/UL RBC (test code = 1002) 5.60 M/UL HEMOGLOBIN (test code = 1003) 17.4 G/DL HEMATOCRIT (test code = 1004) 52.0 % MCV (test code = 1005) 92.9 fL MCH (test code = 1006) 31.1 PG MCHC (test code = 1007) 33.5 G/DL RDW (test code = 1038) 14.2 % NEUTROPHILS (test code = 1008) 57.1 % LYMPHOCYTES (test code = 1010) 34.8 % MONOCYTES (test code = 1011) 6.0 % EOSINOPHILS (test code = 1012) 1.2 % BASOPHILS (test code = 1013) 0.7 % IMMATURE GRANULOCYTES (test code = 1036) 0.2 % NUCLEATED RBCS (test code = 1065) 0.0 /100WBC'S PLATELET COUNT (test code = 1015) 343 K/UL ABSOLUTE NEUTROPHILS (test c ode = 1066) 6.93 K/UL ABSOLUTE LYMPHOCYTES (test c ode = 1067) 4.22 K/UL ABSOLUTE MONOCYTES (test cod e = 1068) 0.73 K/UL ABSOLUTE EOSINOPHILS (test c ode = 1040) 0.15 K/UL ABSOLUTE BASOPHILS (test cod e = 1069) 0.09 K/UL ABS IMMATURE GRANULOCYTES (t est code = 1020) 0.02 K/UL ABS NUCLEATED RBCS (test cod e = 06289) 0.00 K/UL Ben WestbrookCELIAC DISEASE REFLEX [id number] 00:00:00* Test Item Value Reference Range Interpretation Comme nts IMMUNOGLOBULIN A (IgA) (test code = 2753) 314 MG/DL Ben WestbrookCOMPREHENSIVE METABOLIC [id number] 00:00:00* Test Item Value Reference Range Interpretation Comme nts GLUCOSE (test code = 2217) 143 MG/DL BUN (test code = 2208) 9 MG/DL CREATININE (test code = 2214) 0.74 MG/DL eGFR (2020 CKD-EPI) (test co de = 43127) 86 ML/MIN/1.73 CALC BUN/CREAT (test code = 2235) 12 RATIO SODIUM (test code = 2231) 140 MEQ/L POTASSIUM (test code = 2228) 4.7 MEQ/L CHLORIDE (test code = 2215) 101 MEQ/L CARBON DIOXIDE (test code = 2206) 27 MEQ/L CALCIUM (test code = 2209) 9.9 MG/DL PROTEIN, TOTAL (test code = 2229) 6.9 G/DL ALBUMIN (test code = 2201) 4.1 G/DL CALC GLOBULIN (test code = 2240) 2.8 G/DL CALC A/G RATIO (test code = 2234) 1.5 RATIO BILIRUBIN, TOTAL (test code = 7) 0.3 MG/DL ALKALINE PHOSPHATASE (test code = 2203) 136 U/L AST (test code = 221) 19 U/L ALT (test code = 2219) 15 U/L Ben WestbrookHEMOGLOBIN [id number] 00:00:00* Test Item Value Reference Range Interpretation Comme [facility] HEMOGLOBIN A1c (test code = 65508) 6.2 % Ben WestbrookTSH, THIRD [id number] 00:00:00* Test Item Value Reference Range Interpretation Comme [facility] TSH, THIRD GENERATION (test code = 2821) 1.490 UIU/ML Ben WestbrookCBC W/AUTO [id number] 00:00:00* Test Item Value Reference Range Interpretation Comme nts WBC (test code = 1001) 12.1 K/UL RBC (test code = 1002) 5.60 M/UL HEMOGLOBIN (test code = 1003) 17.4 G/DL HEMATOCRIT (test code = 1004) 52.0 % MCV (test code = 1005) 92.9 fL MCH (test code = 1006) 31.1 PG MCHC (test code = 1007) 33.5 G/DL RDW (test code = 1038) 14.2 % NEUTROPHILS (test code = 1008) 57.1 % LYMPHOCYTES (test code = 1010) 34.8 % MONOCYTES (test code = 1011) 6.0 % EOSINOPHILS (test code = 1012) 1.2 % BASOPHILS (test code = 1013) 0.7 % IMMATURE GRANULOCYTES (test code = 1036) 0.2 % NUCLEATED RBCS (test code = 1065) 0.0 /100WBC'S PLATELET COUNT (test code = 1015) 343 K/UL ABSOLUTE NEUTROPHILS (test c ode = 1066) 6.93 K/UL ABSOLUTE LYMPHOCYTES (test c ode = 1067) 4.22 K/UL ABSOLUTE MONOCYTES (test cod e = 1068) 0.73 K/UL ABSOLUTE EOSINOPHILS (test c ode = 1040) 0.15 K/UL ABSOLUTE BASOPHILS (test cod e = 1069) 0.09 K/UL ABS IMMATURE GRANULOCYTES (t est code = 1020) 0.02 K/UL ABS NUCLEATED RBCS (test cod e = 22426) 0.00 K/UL Ben Osei AustinCELIAC DISEASE REFLEX [id number] 00:00:00* Test Item Value Reference Range Interpretation Comme nts IMMUNOGLOBULIN A (IgA) (test code = 2753) 314 MG/DL Ben WestbrookCOMPREHENSIVE METABOLIC [id number] 00:00:00* Test Item Value Reference Range Interpretation Comme nts GLUCOSE (test code = 2217) 143 MG/DL BUN (test code = 2208) 9 MG/DL CREATININE (test code = 2214) 0.74 MG/DL eGFR (2020 CKD-EPI) (test co de = 91707) 86 ML/MIN/1.73 CALC BUN/CREAT (test code = 2235) 12 RATIO SODIUM (test code = 2231) 140 MEQ/L POTASSIUM (test code = 2228) 4.7 MEQ/L CHLORIDE (test code = 2215) 101 MEQ/L CARBON DIOXIDE (test code = 2206) 27 MEQ/L CALCIUM (test code = 2209) 9.9 MG/DL PROTEIN, TOTAL (test code = 2229) 6.9 G/DL ALBUMIN (test code = 2201) 4.1 G/DL CALC GLOBULIN (test code = 2240) 2.8 G/DL CALC A/G RATIO (test code = 2234) 1.5 RATIO BILIRUBIN, TOTAL (test code = 2207) 0.3 MG/DL ALKALINE PHOSPHATASE (test code = 2204) 136 U/L AST (test code = 2218) 19 U/L ALT (test code = 2219) 15 U/L Ben WestbrookHEMOGLOBIN [id number] 00:00:00* Test Item Value Reference Range Interpretation Comme kiko HEMOGLOBIN A1c (test code = 04405) 6.2 % Ben MackH, THIRD [id number] 00:00:00* Test Item Value Reference Range Interpretation Comme nts TSH, THIRD GENERATION (test code = 2821) 1.490 UIU/ML Ben WestbrookCBC W/AUTO [id number] 00:00:00* Test Item Value Reference Range Interpretation Comme nts WBC (test code = 1001) 12.1 K/UL RBC (test code = 1002) 5.60 M/UL HEMOGLOBIN (test code = 1003) 17.4 G/DL HEMATOCRIT (test code = 1004) 52.0 % MCV (test code = 1005) 92.9 fL MCH (test code = 1006) 31.1 PG MCHC (test code = 1007) 33.5 G/DL RDW (test code = 1038) 14.2 % NEUTROPHILS (test code = 1008) 57.1 % LYMPHOCYTES (test code = 1010) 34.8 % MONOCYTES (test code = 1011) 6.0 % EOSINOPHILS (test code = 1012) 1.2 % BASOPHILS (test code = 1013) 0.7 % IMMATURE GRANULOCYTES (test code = 1036) 0.2 % NUCLEATED RBCS (test code = 1065) 0.0 /100WBC'S PLATELET COUNT (test code = 1015) 343 K/UL ABSOLUTE NEUTROPHILS (test c ode = 1066) 6.93 K/UL ABSOLUTE LYMPHOCYTES (test c ode = 1067) 4.22 K/UL ABSOLUTE MONOCYTES (test cod e = 1068) 0.73 K/UL ABSOLUTE EOSINOPHILS (test c ode = 1040) 0.15 K/UL ABSOLUTE BASOPHILS (test cod e = 1069) 0.09 K/UL ABS IMMATURE GRANULOCYTES (t est code = 1020) 0.02 K/UL ABS NUCLEATED RBCS (test cod e = 26402) 0.00 K/UL Ben WestbrookCELIAC DISEASE REFLEX [id number] 00:00:00* Test Item Value Reference Range Interpretation Comme nts IMMUNOGLOBULIN A (IgA) (test code = 2753) 314 MG/DL Ben Osei [facility] W/AUTO [id number] 00:00:00* Test Item Value Reference Range Interpretation Comme nts NUCLEATED RBCS (test code = 13965-8) 0.0 /100 WBC'S See_Comment [Automated messa ge] The system which generated this result transmitted reference range: 0.0 /100 WBC'S. The reference range was not used to interpret this result as normal/abnormal. ABSOLUTE EOSINOPHILS (test code = 51833-0) 0.15 K/UL See_Comment [Automated messa ge] The system which generated this result transmitted reference range: 0.00-0.50 K/UL. The reference range was not used to interpret this result as normal/abnormal. ABSOLUTE LYMPHOCYTES (test code = 57511-4) 4.44 K/UL See_Comment H [Automated messa ge] The system which generated this result transmitted reference range: 1.00-4.00 K/UL. The reference range was not used to interpret this result as normal/abnormal. ABSOLUTE MONOCYTES (test code = 88625-9) 0.68 K/UL See_Comment [Automated messa ge] The system which generated this result transmitted reference range: 0.20-1.00 K/UL. The reference range was not used to interpret this result as normal/abnormal. ABSOLUTE NEUTROPHILS (test code = 03162-7) 6.34 K/UL See_Comment [Automated messa ge] The system which generated this result transmitted reference range: 1.50-7.50 K/UL. The reference range was not used to interpret this result as normal/abnormal. BASOPHILS (test code = 91963-3) 0.7 % EOSINOPHILS (test code = 87578-1) 1.3 % HEMATOCRIT (test code = 71158-8) 52.8 % See_Comment H [Automated messa ge] The system which generated this result transmitted reference range: 34.0-45.0 %. The reference range was not used to interpret this result as normal/abnormal. HEMOGLOBIN (test code = 718-7) 17.9 G/DL See_Comment H [Automated messa ge] The system which generated this result transmitted reference range: 11.5-15.5 G/DL. The reference range was not used to interpret this result as normal/abnormal. LYMPHOCYTES (test code = 04780-7) 37.9 % MCH (test code = 22318-2) 30.9 PG See_Comment [Automated messa ge] The system which generated this result transmitted reference range: 25.0-33.0 PG. The reference range was not used to interpret this result as normal/abnormal. MCHC (test code = 42388-1) 33.9 G/DL See_Comment [Automated messa ge] The system which generated this result transmitted reference range: 31.0-36.0 G/DL. The reference range was not used to interpret this result as normal/abnormal. MCV (test code = 80666-4) 91.0 fL See_Comment [Automated messa ge] The system which generated this result transmitted reference range: 80.0-99.0 fL. The reference range was not used to interpret this result as normal/abnormal. MONOCYTES (test code = 82554-6) 5.8 % NEUTROPHILS (test code = 76476-3) 54.0 % PLATELET COUNT (test code = 79745-3) 351 K/UL See_Comment [Automated messa ge] The system which generated this result transmitted reference range: 130-400 K/UL. The reference range was not used to interpret this result as normal/abnormal. RBC (test code = 49598-9) 5.80 M/UL See_Comment H [Automated messa ge] The system which generated this result transmitted reference range: 3.80-5.40 M/UL. The reference range was not used to interpret this result as normal/abnormal. RDW (test code = 33815-7) 13.0 % See_Comment [Automated messa ge] The system which generated this result transmitted reference range: 11.5-15.0 %. The reference range was not used to interpret this result as normal/abnormal. WBC (test code = 69362-1) 11.7 K/UL See_Comment H [Automated messa ge] The system which generated this result transmitted reference range: 3.5-11.0 K/UL. The reference range was not used to interpret this result as normal/abnormal. Notes Date/Time Note Provider Source [facility]2025-10-02 00:00:00 [facility]2025-08-11 00:00:00 [facility]2025-07-16 00:00:00 Ben Paz [facility]2025-07-11 00:00:00 Ben Brandi [facility]2025-07-08 00:00:00 Ben Paz [facility]2025-06-26 00:00:00 Ben Paz [facility]2025-06-23 00:00:00 Ben Brandi [facility]2025-06-18 00:00:00 [facility]2025-05-01 00:00:00 [facility]2025-04-03 00:00:00 [facility]2025-02-12 00:00:00 [facility]2025-01-24 00:00:00 Ben Paz [facility]2025-01-06 00:00:00 [facility]2024-10-24 [facility]2024-08-06 00:00:00 [facility]2024-06-24 00:00:00 [facility]2024-04-29 00:00:00 [facility]
[2025-04-24 14:17] LABS: Absolute Lymphocytes (CBC) 3.3 K/uL (0.7-4.9); Hematocrit 49.2 % (36.0-45.0); Hemoglobin 16.3 g/dL (12.0-15.0); MCH 30.0 pg (27.0-35.0); MCHC 33.1 g/dL (32.0-36.0); MCV 90.6 fL (80-100); MPV 7.4 fL (7.6-11.3); Nucleated RBC Absolute Count 0.0 (0-0); Nucleated Red Blood Cells % 0.2 % (0-0); RBC Red Blood Cell Count 5.43 M/uL (3.86-4.86); White Blood Count 10.50 thou/uL (4.3-10.9)
[2025-04-24] MEDS ORDERED: LABETALOL 20 MG/4ML SYRINGE IV ONE (14:18)
[2025-04-24 14:33] LABS: Influenza A Ag Negative; Influenza B Ag Negative; SARS-CoV-2 Antigen Rapid Res Negative (Negative)
[2025-04-24 14:39] LABS: ALT/SGPT 17.0 U/L (13-56); AST/SGOT 15.0 U/L (15-37); Albumin 2.7 g/dL (3.4-5.0); Albumin/Globulin Ratio 1.0 (1.1-1.8); Alkaline Phosphatase 98.0 U/L (45-117); Anion Gap 8.8 mEq/L (5.0-15.0); BUN Blood Urea Nitrogen 11.0 mg/dL (7-18); Globulin 2.7 g/dL (2.3-3.5); Glucose Level 129.0 mg/dL (74-106); Lipase 6.0 U/L (13-75); Potassium 2.8 mEq/L (3.5-5.1)
--- NOTE | 2025-04-24 15:12 | RAD REPORT ---
EXAMINATION: CT ABDOMEN AND PELVIS WITHOUT CONTRAST CLINICAL INDICATION: Abdominal pain TECHNIQUE: CT abdomen and pelvis was performed, as per department protocol. IV contrast and oral was not administered.Axial, sagittal and coronal reconstructions were obtained. One or more of the following dose reduction techniques were used: Automated exposure control, adjustment of the mA and/o r kV according to the patient size, and/or iterative reconstruction. Unless otherwise specified, incidental findings do not require dedicated imaging follow-up. [id number]. COMPARISON: 2013 FINDINGS: The lack of intravenous and oral contrast limits evaluation of solid organs, vessels and bowel. Hepatic and splenic granulomata. Pancreas, adrenals and right kidney grossly normal. Mild left hydronephrosis unchanged from prior imaging. Genitourinary calculus not seen. Hysterectomy. No adnexal mass. Spondylosis lumbar spine. No evidence of diverticulitis. Atherosclerosis Normal appendix IMPRESSION: Chronic mild left hydronephrosis. Perhaps this is secondary to genitourinary reflux. No acute abnormality displayed
--- NOTE | 2025-04-24 15:37 | EDPHYS ---
Physician Documentation [facility] Name: Oralia Treviño Age: 75 yrs Sex: Female : 1950 Arrival Date: 04/24/2025 Time: 13:32 Bed 5 Private MD: ED Physician Ariel Hook HPI: 04/24 15:42 This 75 yrs old Female presents to ER via EMS with complaints of Flu Symptoms. kb 15:42 Patient is a 75-year-old female who presents for malaise that started 4 days ago. kb States she has had low back pain which is chronic, 1 episode of diarrhea and a few episodes of vomiting. Denies fever. States she has been having issues keeping her blood pressure under control and saw her doctor yesterday for new medications. States she has not picked those up yet.. Historical: - Allergies: 13:37 Iodine; bp - PMHx: 13:37 chronic back pain; COPD (Vertigo); Hypertensive disorder; Vertigo; bp - Immunization history:: Adult Immunizations up to date. - Infectious Disease History:: Denies. - Social history:: Smoking status: Patient denies any tobacco usage or history of. ROS: 15:28 Constitutional: As per HPI kb Exam: 15:28 Constitutional: This is a well developed, well nourished patient who is awake, alert, kb and in no acute distress. Head/Face: Normocephalic, atraumatic. ENT: Moist Mucous membranes Cardiovascular: Regular rate Respiratory: Respirations even and unlabored. No increased work of breathing. Talking in full sentences Abdomen/GI: Soft, non-tender. No distention Skin: Warm, dry with normal turgor. Normal color. MS/ Extremity: Pulses equal, no cyanosis. Neurovascular intact. Full, normal range of motion. Neuro: Awake and alert, GCS 15, oriented to person, place, time, and situation. 15:43 ECG was reviewed by the Attending Physician. kb Vital Signs: 13:36 BP 149 / 64; Pulse 57; Resp 16; Temp 98; Pulse Ox 94% on 2 lpm NC; bp 14:20 BP 228 / 84; Pulse 86; Resp 16; Pulse Ox 95% ; bp 15:52 BP 147 / 81; Pulse 79; Resp 17; Pulse Ox 99% ; hb MDM: 13:36 Medical Screening Exam initiated rn 15:37 Differential diagnosis: copd exacerbation, flu, covid, gastroenteritis, abnormal kb electrolytes, dehydration. Data reviewed: vital signs, nurses notes. Consideration of Admission/Observation Escalation of care including admission/observation considered. admission considered, but pt wants to go home. Son states he will bring her back if needed. Historians other than the Patient: EMS: [facility]. Counseling: I had a detailed discussion with the patient and/or guardian regarding the historical points, exam findings, and any diagnostic results supporting the discharge/admit diagnosis, lab results, radiology results, the need for outpatient follow up, a family practitioner, to return to the emergency department if symptoms worsen or persist or if there are any questions or concerns that arise at home. 04/24 13:42 Order name: CBC with Diff; Complete Time: 14:24 kb 04/24 13:42 Order name: CMP; Complete Time: 14:39 kb 04/24 13:42 Order name: Lipase; Complete Time: 14:39 kb 04/24 13:42 Order name: COVID-19 Ag + Flu A+B Ag; Complete Time: 14:39 kb 04/24 15:02 Order name: Abdomen ; Complete Time: 15:14 EDMS 04/24 13:42 Order name: IV Saline Lock; Complete Time: 13:56 kb 04/24 13:42 Order name: Labs collected and sent; Complete Time: 13:56 kb EC:43 Rate is 53 beats/min. Rhythm is regular. QRS [place] is Normal. NC interval is normal at kb 178 msec. QRS interval is normal at 90 msec. QT interval is normal at 457 msec. Administered Medications: 14:04 Drug: Ondansetron IVP 4 mg IVP once; over 2 minutes Route: IVP; Site: left forearm; hb 16:32 Follow up: Response: No adverse reaction zm 14:04 Drug: NS 0.9% IV 1000 ml IV at 1 bolus Per protocol; to be given as a bolus over 60 hb minutes Route: IV; Rate: 1 bolus; Site: left forearm; 16:32 Follow up: Response: No adverse reaction; IV Status: Completed infusion zm 14:20 Drug: Labetalol IV 20 mg IV at calculated rate once over 2 mins Route: IV; Rate: bp calculated rate; Infused Over: 2 mins; Site: left forearm; 16:31 Follow up: Response: No adverse reaction; IV Status: Completed infusion zm 15:55 Drug: Potassium PO Effervescent Tablet 50 mEq PO once; dissolve in 4 ounces of water or bp juice Route: PO; 16:31 Follow up: Response: No adverse reaction zm 15:55 Drug: Hydrocodone-Acetaminophen PO (7.5 mg-325 mg) 1 tabs PO once Route: PO; bp 16:31 Follow up: Response: No adverse reaction zm Disposition: 17:13 Co-signature as Attending Physician, Ariel Hook MD I reviewed the patient's care rn provided by the Advanced Practice Provider and agree with the diagnosis and treatment plan. Disposition Summary: 04/24/25 15:36 Discharge Ordered Notes: Location: Home kb Condition: Stable kb Diagnosis - Low back pain - chronic kb - Other malaise kb - Hypokalemia kb - Essential (primary) hypertension kb Followup: kb - With: Emergency Department - When: As needed - Reason: Worsening of condition Followup: kb - With: Private Physician - When: 2 - 3 days - Reason: Recheck today's complaints, Continuance of care, Re-evaluation by your physician Discharge Instructions: - Discharge Summary Sheet kb - Chronic Back Pain, [id number] kb - Hypokalemia kb Forms: - Medication Reconciliation Form kb - Antibiotic Education kb - Prescription Opioid Use kb - Patient Portal Instructions kb - Leadership Thank You Letter kb Signatures: Dispatcher [employer] EDPatricia Moreno, MRI TECH-C MRI TECH-Ckb Ariel Hook MD MD rn Baxter, Heather, RN RN Rafael Andino RN RN bp Martinez, Zaina RN zm Corrections: (The following items were deleted from the chart) 15:00 13:43 Abdomen Pelvis W [id number] ordered. EDMS EDMS
--- NOTE | 2025-04-24 15:37 | ER ---
Nurse's Notes [facility] Name: Oralia Treviño Age: 75 yrs Sex: Female : 1950 Arrival Date: 04/24/2025 Time: 13:32 Bed 5 Private MD: Diagnosis: Low back pain-chronic;Other malaise;Hypokalemia;Essential (primary) hypertension Presentation: 04/24 13:36 Chief complaint: EMS states: FLU-LIKE S/S AND HTN. Coronavirus screen: shortness of bp breath. Ebola Screen: No symptoms or risks identified at this time. Initial Sepsis Screen: Does the patient meet any 2 criteria? No. Patient's initial sepsis screen is negative. Does the patient have a suspected source of infection? No. Patient's initial sepsis screen is negative. Risk Assessment: Do you want to hurt yourself or someone else? Patient reports no desire to harm self or others. Onset of symptoms is unknown. Care prior to arrival: Medication(s) given: LABETALOL 20MG IV initiated. 20 GA, in the left forearm. 13:36 Method Of Arrival: EMS: [facility] bp 13:36 Acuity: BETTY 3 bp Triage Assessment: 13:37 General: Appears in no apparent distress. Behavior is cooperative, appropriate for age, bp anxious. Pain: Denies pain. EENT: No deficits noted. Neuro: No deficits noted. Cardiovascular: Rhythm is sinus bradycardia. Respiratory: Reports shortness of breath. GI: No signs and/or symptoms were reported involving the gastrointestinal system. : No signs and/or symptoms were reported regarding the genitourinary system. Derm: No deficits noted. Musculoskeletal: No deficits noted. Historical: - Allergies: 13:37 Iodine; bp - PMHx: 13:37 chronic back pain; COPD (Vertigo); Hypertensive disorder; Vertigo; bp - Immunization history:: Adult Immunizations up to date. - Infectious Disease History:: Denies. - Social history:: Smoking status: Patient denies any tobacco usage or history of. Screenin:51 [facility] ED Fall Risk Assessment (Adult) History of falling in the last 3 months, hb including since admission No falls in past 3 months (0 pts) Confusion or Disorientation No (0 pts) Intoxicated or Sedated No (0 pts) Impaired Gait No (0 pts) Mobility Assist Device Used No (0 pt) Altered Elimination No (0 pt) Score/Fall Risk Level 0 - 2 = Low Risk Oriented to surroundings, Maintained a safe environment, Educated pt \T\ family on fall prevention, incl call for assistance when getting out of bed. Abuse screen: Denies threats or abuse. Denies injuries from another. Nutritional screening: No deficits noted. Tuberculosis screening: No symptoms or risk factors identified. Assessment: 15:51 Reassessment: Patient appears in no apparent distress at this time. Patient and/or hb family updated on plan of care and expected duration. Pain level reassessed. Patient is alert, oriented x 3, equal unlabored respirations, skin warm/dry/pink. Vital Signs: 13:36 BP 149 / 64; Pulse 57; Resp 16; Temp 98; Pulse Ox 94% on 2 lpm NC; bp 14:20 BP 228 / 84; Pulse 86; Resp 16; Pulse Ox 95% ; bp 15:52 BP 147 / 81; Pulse 79; Resp 17; Pulse Ox 99% ; hb ED Course: 13:35 Patient arrived in ED. bp 13:35 Patient has correct armband on for positive identification. Provided Education on: CALL hb LIGHT . 13:36 Ariel Hook MD is Attending Physician. rn 13:36 Patricia Ruth FNP-C is PHCP. rn 13:37 Triage completed. bp 13:37 Arm band placed on. bp 13:38 Maintain EMS IV. Dressing intact. Good blood return noted. Site clean \T\ dry. Gauge \T\ bp site: 20 LFA. 13:55 Rafael Gilbert, RN is Primary Nurse. bp 14:27 EKG done, by ED staff. tm3 15:02 Abdomen In Process Unspecified. EDMS 16:29 No provider procedures requiring assistance completed. IV discontinued, intact, zm bleeding controlled, No redness/swelling at site. Pressure dressing applied. Administered Medications: 14:04 Drug: Ondansetron IVP 4 mg IVP once; over 2 minutes Route: IVP; Site: left forearm; hb 16:32 Follow up: Response: No adverse reaction zm 14:04 Drug: NS 0.9% IV 1000 ml IV at 1 bolus Per protocol; to be given as a bolus over 60 hb minutes Route: IV; Rate: 1 bolus; Site: left forearm; 16:32 Follow up: Response: No adverse reaction; IV Status: Completed infusion zm 14:20 Drug: Labetalol IV 20 mg IV at calculated rate once over 2 mins Route: IV; Rate: bp calculated rate; Infused Over: 2 mins; Site: left forearm; 16:31 Follow up: Response: No adverse reaction; IV Status: Completed infusion zm 15:55 Drug: Potassium PO Effervescent Tablet 50 mEq PO once; dissolve in 4 ounces of water or bp juice Route: PO; 16:31 Follow up: Response: No adverse reaction zm 15:55 Drug: Hydrocodone-Acetaminophen PO (7.5 mg-325 mg) 1 tabs PO once Route: PO; bp 16:31 Follow up: Response: No adverse reaction zm Medication: 16:29 VIS not applicable for this client. Outcome: 15:36 Discharge ordered by . kendall 16:29 Discharged to home via wheelchair, 16:29 Condition: stable 16:29 Discharge instructions given to patient, family, Instructed on discharge instructions, follow up and referral plans. safety practices, Demonstrated understanding of instructions, follow-up care, 16:33 Patient left the ED. bp Signatures: Dispatcher [employer] EDMS Patricia Ruth, CONGRESSIONAL REPRESENTATIVE-C CONGRESSIONAL REPRESENTATIVE-Ckb Chris Mortensen tm3 Ariel Hook MD MD rn Baxter, Heather, RN Rafael Sparks RN RN bp Martinez, Zaina, RN ELLA
[2025-04-24] MEDS ORDERED: POTASSIUM 25 MEQ EFFERV TAB ONE (15:45)
[2025-04-24] MEDS ORDERED: HYDROCODONE/APAP 7.5/325 MG TAB ONE (15:46)
[2025-04-25 00:59] VITALS: TEMP 98
[2025-04-25 01:02] VITALS: BP 147/81; O2SAT 99
== END 2025-04-24 16:33 | disposition home or self-care (01) ==
LOC: ER 13:32
DX: M54.50 Low back pain, unspecified (principal); R53.81 Other malaise; E87.6 Hypokalemia; I10 Essential (primary) hypertension; J44.9 Chronic obstructive pulmonary disease, unspecified; Z11.52 Encounter for screening for COVID-19
CPT/HCPCS: 96365; 93005; 85025; 36415; 83690; 80053; 74176; 96375; 99284; 96366; 87428; J2405; J7030